=== PATIENT | female | born 1940 | race Caucasian/White ===

== ENCOUNTER → 2016-08-08 | Outpatient (CLI) | payer MEDICARE ==
--- NOTE | 2016-08-08 09:37 | MR ---
EXAMINATION TYPE: MR brain wo/w con DATE OF EXAM: 08/08/2016 9:25 AM COMPARISON: NONE HISTORY: Episodes of Severe Dizziness, Unsteady, HX of Ovarian CA 2007 CONTRAST: Performed utilizing 16 mL intravenous MultiHance gadolinium contrast. TECHNIQUE: Multiplanar, multiecho imaging on a 3.0 Malaika magnet is performed through the brain. Stud y is performed within 24 hours of arrival to the hospital. The craniovertebral junction is normal. The pituitary is normal. Diffusion-weighted imaging is performed. No abnormal hyperintensity is present to suggest an acute i ntracranial infarct or acute ischemic change. There are patchy periventricular white matter hyperintensities on inversion recovery weighted sequenc es compatible with microvascular ischemic changes. Ventricles and sulci are slightly prominent for the patient age. No suspicious enhancement is evident. IMPRESSIONS: 1. Atrophy with periventricular white matter ischemic type changes.
== END | disposition home or self-care (01) ==
LOC: RADMRIMAIN 08:37
PROVIDERS: ATTEND Internal Medicine
DX: G31.9 Degenerative disease of nervous system, unspecified (principal); R90.82 White matter disease, unspecified
CPT/HCPCS: 70553; A9577

== ENCOUNTER → 2016-08-13 | Outpatient (CLI) | payer MEDICARE ==
--- NOTE | 2016-08-14 10:03 | MM ---
Reason for exam: screening (asymptomatic). Last mammogram was performed 1 year ago. History: Patient is postmenopausal and has history of ovarian cancer at age 67. Family history of breast cancer in paternal aunt at age 50, breast cancer in maternal cousin, and breast cancer in maternal aunt at age 50. Excisional biopsy of the left breast, 1969. Took estrogen for 20 years beginning at age 45. Physical Findings: A clinical breast exam by your physician is recommended on an annual basis and results should be correlated with mammographic findings. MG 3D Screening Mammo W/Cad Bilateral CC and MLO view(s) were taken. Prior study comparison: August 12, 2015, bilateral MG 3d screening mammo w/cad. August 10, 2014, bilateral MG screening mammo w CAD. There are scattered fibroglandular densities. Finding: There are typically benign vascular calcifications in the right breast. There is a chronic nodularity in the right breast. There is no discrete abnormality. ASSESSMENT: Benign, BI-RAD 2 RECOMMENDATION: Routine screening mammogram of both breasts in 1 year.
== END | disposition home or self-care (01) ==
LOC: RADMAMWWP 09:46
PROVIDERS: ATTEND Internal Medicine
DX: Z12.31 Encounter for screening mammogram for malignant neoplasm of breast (principal)
CPT/HCPCS: 77063; G0202

== ENCOUNTER → 2016-09-02 | Outpatient (CLI) | payer MEDICARE | END | disposition home or self-care (01) | LOC: RADECHMAIN 11:56 | PROVIDERS: ATTEND Internal Medicine | DX: R55 Syncope and collapse (principal) | CPT/HCPCS: 93270; 93271 ==

== ENCOUNTER → 2016-09-22 | Outpatient (CLI) | payer MEDICARE ==
[2016-09-22 12:17] LABS: Blood Urea Nitrogen 19 mg/dL (7-17); Non-African American GFR(MDRD) 54 (>60 ml/min/1.73 sqM)
[2016-09-22 12:49] LABS: Cancer Anitgen 125 10.4 U/mL (<35.1)
== END | disposition home or self-care (01) ==
LOC: LABWHC1 11:26
PROVIDERS: ATTEND Internal Medicine Hematology & Oncology
DX: C56.9 Malignant neoplasm of unspecified ovary (principal)
CPT/HCPCS: 36415; 82565; 84520; 86304

== ENCOUNTER → 2016-09-28 | Outpatient (CLI) | payer MEDICARE ==
--- NOTE | 2016-09-28 10:25 | CT ---
EXAMINATION TYPE: CT ChestAbdPelvis w con DATE OF EXAM: 09/28/2016 9:19 AM COMPARISON: Previous study dated 04/06/2016. HISTORY: Patient complains of LLQ pain at time of study. Follow up study for known ovarian CA. CT DLP: 1293.9 mGycm Automated exposure control for dose reduction was used. TECHNIQUE: Helical acquisition through the abdomen and pelvis was obtained without oral contrast but following the intravenous administration of 80 mL of Visipaque 320. The data was formatted in the ax ial, coronal and sagittal projections. FINDINGS: There is apical scarring worse on the right than the left. The lungs are otherwise clear. There is no significant axillary, internal mammary, mediastinal or hilar adenopathy. There is no pleu ral or pericardial fluid. The heart is not enlarged. Within the abdomen, the liver is enlarged measuring 21 cm. Is fatty infiltrated. It has the spleen an d gallbladder are normal. Both adrenal glands are normal. There are simple appearing cyst in the upper pole of the right kidney measuring 3.6 cm. This was pres ent previously. The left kidney is normal. The pancreas is unremarkable. There is mild atheromatous calcification of the visualized arterial tree. There is no significant retroperitoneal, iliac or inguinal adenopathy. The uterus and ovaries are not visualized. The bladder is normal. Both large and small bowel are normal. The appendix is normal. There is no free fluid and no free air. There is degenerative disc disease at L5-S1. There is hypertrophic spondylosis in the lower dorsal sp ine. There is no bony destructive lesion. IMPRESSION: 1. NO EVIDENCE OF METASTATIC DISEASE AT THIS TIME. 2. HEPATOMEGALY AND FATTY INFILTRATION OF THE LIVER. 3. STABLE, SIMPLE APPEARING CYSTIC DISEASE OF THE RIGHT KIDNEY. 4. MILD DEGENERATIVE CHANGES WITHIN THE SPINE.
== END ==
LOC: RADCTMAIN 08:21
PROVIDERS: ATTEND Internal Medicine Hematology & Oncology
DX: Z03.89 Encounter for observation for other suspected diseases and conditions ruled out (principal); C56.9 Malignant neoplasm of unspecified ovary; K76.0 Fatty (change of) liver, not elsewhere classified; R16.0 Hepatomegaly, not elsewhere classified; Q61.9 Cystic kidney disease, unspecified; M47.9 Spondylosis, unspecified
CPT/HCPCS: 71260; 74177; Q9967

== ENCOUNTER → 2017-03-25 | Outpatient (CLI) | payer MEDICARE ==
[2017-03-25 11:22] LABS: AST 32 U/L (14-36); Alkaline Phosphatase 147 U/L (38-126); Anion Gap 10 mmol/L; Blood Urea Nitrogen 12 mg/dL (7-17); Calcium 9.9 mg/dL (8.4-10.2); Carbon Dioxide 25 mmol/L (22-30); Chloride 107 mmol/L (98-107); Cholesterol 138 mg/dL (<200); Glucose 93 mg/dL (74-99); HDL Cholesterol 52 mg/dL (40-60); Non-African American GFR(MDRD) 53 (>60 ml/min/1.73 sqM); Potassium 4.4 mmol/L (3.5-5.1); Sodium 142 mmol/L (137-145); Total Bilirubin 0.6 mg/dL (0.2-1.3); Total Protein 7.3 g/dL (6.3-8.2)
[2017-03-25 11:27] LABS: ALT 43 U/L (9-52)
== END | disposition home or self-care (01) ==
LOC: LABWHC1 10:44
PROVIDERS: ATTEND Internal Medicine Hematology & Oncology
DX: C56.9 Malignant neoplasm of unspecified ovary (principal)
CPT/HCPCS: 36415; 80053; 80061; 86304

== ENCOUNTER → 2017-03-30 | Outpatient (CLI) | payer MEDICARE ==
--- NOTE | 2017-03-30 13:09 | CT ---
EXAMINATION TYPE: CT ChestAbdPelvis w con DATE OF EXAM: 03/30/2017 COMPARISON: CT chest abdomen and pelvis September 28, 2016 and older studies. HISTORY: Follow up on ovarian cancer currently after remission after treatment 2007. CT DLP: 1887 mGycm. Automated Exposure Control for Dose Reduction was Utilized. CONTRAST: CT scan of the thorax, abdomen and pelvis is performed with oral and with IV Contrast, patient inject ed with 80 mL of Visipaque 320. FINDINGS: LUNGS: Mild to moderate biapical scarring is redemonstrated. Dependent atelectasis in both lower lobe s is present. There is no suspicious nodule or mass seen bilaterally. No pleural effusion or pneumoth orax is present. Tracheobronchial tree is patent. MEDIASTINUM: There are no greater than 1 cm hilar or mediastinal lymph nodes. No cardiomegaly or pe ricardial effusion is seen. Coronary artery calcification is redemonstrated which is noted marker fo r coronary artery disease. OTHER: No additional significant abnormality is seen. LIVER/GB: The liver remains diffusely low dense consistent with fatty infiltration. PANCREAS: No significant abnormality is seen. SPLEEN: No significant abnormality is seen. ADRENALS: No significant abnormality is seen. KIDNEYS: There is simple appearing 3.5 cm cyst posteriorly upper pole level right kidney. Smaller sim ple appearing cyst anterior to this is noted on series 7 axial image 18. BOWEL: Oral contrast reaches level of the left colon. There is no suspicious small or large bowel dil atation. Normal-appearing appendix is seen from cecum in the right lower quadrant. GENITAL ORGANS: Uterus is surgically absent. No suspicious adnexal masses are seen. Left-sided pelvic phlebolith is redemonstrated. LYMPH NODES: No greater than 1cm abdominal or pelvic lymph nodes are appreciated. OSSEOUS STRUCTURES: There is moderate disc space narrowing and vacuum disc phenomenon at lumbosacral junction. There is fairly moderate symmetric joint space loss in both hips. There is facet arthropath y in the lower lumbar spine. OTHER: There is mild to moderate calcified plaque in the abdominal aorta extending into pelvic branch vessels. IMPRESSION: No suspicious new mass or adenopathy is seen to suggest neoplastic recurrence.
== END | disposition home or self-care (01) ==
LOC: RADCTMAIN 12:13
PROVIDERS: ATTEND Internal Medicine Hematology & Oncology
DX: C56.9 Malignant neoplasm of unspecified ovary (principal); Z91.041 Radiographic dye allergy status
CPT/HCPCS: 71260; 74177; Q9967

== ENCOUNTER → 2017-07-05 | Outpatient (CLI) | payer MEDICARE ==
[2017-07-05 13:56] LABS: Blood Urea Nitrogen 19 mg/dL (7-17)
== END ==
LOC: LABWHC1 12:14
PROVIDERS: ATTEND Internal Medicine Hematology & Oncology
DX: C56.9 Malignant neoplasm of unspecified ovary (principal)
CPT/HCPCS: 36415; 82565; 84520

== ENCOUNTER → 2017-07-08 | Outpatient (CLI) | payer MEDICARE ==
--- NOTE | 2017-07-08 17:00 | CT ---
EXAMINATION TYPE: CT ChestAbdPelvis w con DATE OF EXAM: 07/08/2017 COMPARISON: March 30, 2017 HISTORY: Ovarian cancer, elevated C 125 CT DLP: 1250.70 mGycm CONTRAST: CT scan of the chest, abdomen and pelvis is performed with Oral Contrast and with IV Contrast, patien t injected with 80 mL of Visipaque 320. CT Chest: LUNGS: The lungs are clear and free of infiltrate or atelectasis. No pulmonary nodule or mass is det ected. No pleural effusion or CT evidence of interstitial lung disease. MEDIASTINUM: Thoracic aorta is of normal caliber. The heart is not enlarged. No evidence for media stinal mass or adenopathy. HILAR STRUCTURES: No evidence for mass. No hilar adenopathy is appreciated. OTHER: No significant abnormality. CONTRAST CT ABDOMEN AND PELVIS FINDINGS: LIVER/GB: Diffuse hepatic steatosis noted. No calcified gallstones. No space occupying hepatic les ion. Biliary tree is of normal caliber. PANCREAS: No inflammation. No distinct mass. SPLEEN: No splenic enlargement. No lesion seen. ADRENALS: No nodule. No thickening. KIDNEYS/BLADDER: No hydronephrosis. No nephrolithiasis. Stable right renal cyst.. BOWEL: Normal appendix. Normal bowel caliber. No inflammation. GENITAL ORGANS: Hysterectomy and bilateral oophorectomy change. LYMPH NODES: No greater than 1cm abdominal or pelvic lymph nodes are appreciated. AORTA: No significant abnormality. OSSEOUS STRUCTURES: No significant abnormality is seen. OTHER: No significant additional abnormality is seen. IMPRESSION: 1. No evidence for metastatic disease or disease recurrence.
== END | disposition home or self-care (01) ==
LOC: RADCTMAIN 16:02
PROVIDERS: ATTEND Internal Medicine Hematology & Oncology
DX: C56.9 Malignant neoplasm of unspecified ovary (principal)
CPT/HCPCS: 71260; 74177; Q9967

== ENCOUNTER → 2017-07-31 | Outpatient (CLI) | payer MEDICARE ==
--- NOTE | 2017-08-03 15:05 | PE ---
EXAMINATION TYPE: PET CT fusion skull to thigh DATE OF EXAM: 07/31/2017 COMPARISON: Chest abdomen pelvis 07/08/2017 Prior PET/CT: 02/02/2015 HISTORY: Ovarian cancer TECHNIQUE: Following the intravenous administration of 11.50 mCi of F-18 FDG, whole body images are performed from the skull base to the midthigh. Images are reviewed on the computer in the coronal, a xial, and sagittal planes. Reconstructed rotating images are created on independent workstation and reviewed on the computer. A localization and attenuation correction CT is performed in conjunction with the PET scan. DLP: 453.03 mGycm SCAN: Subsequent Scan Blood glucose: 93 mg/dL Average Mediastinum SUV: 1.76 Average Liver SUV: 2.58 FINDINGS: NECK: No abnormal uptake THORAX: No abnormal uptake. ABDOMEN: Right anterior abdomen at the level of the pelvic inlet there is associated with a loop of b owel radiotracer accumulation with an SUV of 3.2. This could be related to bowel activity. This is fo dk and neoplasm is not excluded. There is a periaortic lymph node at the aortic bifurcation within i ncreased SUV. This measures 0.8 cm in size, which is enlarged from comparison PET/CT. PELVIS: Focal area of marked hyperintensity adjacent to a diverticulum in the rectum. This is associa jamila with a nodule and has an SUV of 14.01 suggestive for metastatic lesion. This has less intensity t sal the 30 SUV of 02/02/2015. Findings are suspicious for recurrent neoplasm at this level. There coul d be a lymph node in the obturator canal. However, there is sequential imaging of the left ureter sug gesting this could more likely be ureter as well. OSSEOUS STRUCTURES: No abnormal uptake LOCALIZATION CT: There are scattered diverticuli within the sigmoid colon. The lymph node at the aort ic bifurcation measures 0.8 cm. There is increased density in the obturator canal region. Underlying small lymph nodes may be present. The suspected node on the left could also be related to ureter at t he time of this examination. COMPARISON: Uptake within the mid pelvis has diminished in signal. The lymph node at the aortic bifur cation is increased in size and radiotracer accumulation suspicious for metastatic lesion within SUV value of 5.7. There may be some increasing radiotracer accumulation superior to the right femoral nec k of uncertain etiology. Communication: Preliminary results were discussed with Dr. Denis by telephone to 11/14/2016. Patient h as undergone surgery suggesting the uptake within the pelvis and aortic bifurcation lymph node more l ikely new metastatic disease as opposed to recurrence. IMPRESSION: 1. Increased radiotracer accumulation within the mid pelvis has diminished in SUV over the interval b ut remains suspicious for a recurrent neoplasm. 2. New enlarging aortic bifurcation lymph node which remains small by measurement criteria but has an elevated SUV suspicious for new metastatic lesion.
== END | disposition home or self-care (01) ==
LOC: RADPETMAIN 07:35
PROVIDERS: ATTEND Internal Medicine Hematology & Oncology
DX: C56.1 Malignant neoplasm of right ovary (principal); R59.0 Localized enlarged lymph nodes
CPT/HCPCS: 78815; A9552

== ENCOUNTER → 2017-08-16 | Outpatient (CLI) | payer MEDICARE ==
--- NOTE | 2017-08-18 07:29 | MM ---
Reason for exam: screening (asymptomatic). Last mammogram was performed 1 year ago. History: Patient is postmenopausal and has history of ovarian cancer at age 67. Family history of breast cancer in paternal aunt at age 50, breast cancer in maternal cousin, and breast cancer in maternal aunt at age 50. Excisional biopsy of the left breast, 1969. Took estrogen for 20 years beginning at age 45. Physical Findings: A clinical breast exam by your physician is recommended on an annual basis and results should be correlated with mammographic findings. MG 3D Screening Mammo W/Cad Bilateral CC and MLO view(s) were taken. Prior study comparison: August 13, 2016, bilateral MG 3d screening mammo w/cad. August 12, 2015, bilateral MG 3d screening mammo w/cad. Stable focal asymmetry right upper outer quadrant likely intramammary lymph node. No significant changes when compared with prior studies. ASSESSMENT: Negative, BI-RAD 1 RECOMMENDATION: Routine screening mammogram of both breasts in 1 year.
== END | disposition home or self-care (01) ==
LOC: RADMAMWWP 09:21
PROVIDERS: ATTEND Internal Medicine Hematology & Oncology
DX: Z12.31 Encounter for screening mammogram for malignant neoplasm of breast (principal)
CPT/HCPCS: 77063; 77067

== ENCOUNTER 2017-08-27 10:22 | Day surgery (SDC) | payer MEDICARE ==
[2017-08-25 11:56] VITALS: BMI 31.4
--- NOTE | 2017-08-27 07:16 | P.GSHP ---
History of Present Illness H&P Date: 08/27/17 Chief Complaint: Ovarian cancer Patient here today for Port-A-Cath placement. Patient has had 4-5 recurrences of her malignancy over the years. She has never required a Port-A-Cath to be placed before however has very poor IV access at this point. Arriving today for Port-A-Cath placement. Past Medical History Past Medical History: Cancer, COPD, CVA/TIA, Hyperlipidemia, Osteoarthritis (OA) Additional Past Medical History / Comment(s): 2008 OVARIAN CANCER WITH SURGERY X2 AND CHEMO (LAST CHEMO 07/2015), TIA x 2, HX OF MIGRAINES, DIVERTICULOSIS migraines in past, UTI., STATES SORE LEFT LOWER EYE LID AND SURGERY SCHEDULED FOR 09/02/17., PT STATES UNSURE OF COPD., ITCHY SKIN, STATES VERY SENSITIVE TO MEDICATIONS AND ANESTHESIA. History of Any Multi-Drug Resistant Organisms: None Reported Past Surgical History: Bladder Surgery, Hysterectomy Additional Past Surgical History / Comment(s): 2007 cancerous ovarian mass removed, 01/2015 pelvic surgery for more cancer removal, colonoscopy, bladder suspension, hemorrhoidectomy, nose repair, ovarian cystectomy. Past Anesthesia/Blood Transfusion Reactions: Previous Problems w/ Anesthesia, Postoperative Nausea & Vomiting (PONV) Additional Past Anesthesia/Blood Transfusion Reaction / Comment(s): STATES DIFFICULTY WAKING UP- RECEIVED NARCAN , RECORDS REQUESTED FROM [facility] . (02/2015) Past Psychological History: Anxiety, Depression Additional Psychological History / Comment(s): . Smoking Status: Former smoker Past Alcohol Use History: Rare Additional Past Alcohol Use History / Comment(s): Pt started smoking in 1957 and quit in 2007. SMOKED 1 PPD, SMOKED APPROX 50 YRS. Past Drug Use History: None Reported - Past Family History Father Family Medical History: Cancer Additional Family Medical History / Comment(s): Father had lymphoma. Mother Family Medical History: Cancer Additional Family Medical History / Comment(s): Mother had nasal cancer., SKIN CANCER Medications and Allergies Home Medications Medication Instructions Recorded Confirmed Type FLUoxetine HCL [PROzac] 20 mg PO DAILY 01/20/14 08/25/17 History Aspirin [Adult Low Dose Aspirin EC] 81 mg PO DAILY 08/25/17 08/25/17 History Atorvastatin [Lipitor] 10 mg PO HS 08/25/17 08/25/17 History Ibuprofen [Motrin Ib] 200 mg PO HS PRN 08/25/17 08/25/17 History clonazePAM [KlonoPIN] 0.5 mg PO BID PRN 08/25/17 08/25/17 History Allergies Allergy/AdvReac Type Severity Reaction Status Date / Time codeine Allergy Severe SEVERE Verified 08/25/17 10:59 HEADACHE Sulfa (Sulfonamide Allergy Severe SEVERE Verified 08/25/17 10:59 Antibiotics) HEADACHE carboplatin AdvReac Severe HEART Verified 08/25/17 11:44 PROBLEMS, BLACKED OUT. lorazepam [From Ativan] AdvReac Unknown VERY Verified 08/25/17 10:55 DROWSY - SLEPT 12 HOURS ondansetron AdvReac Unknown SWELLING Verified 08/25/17 10:56 [From Zofran (as OF TONGUE, hydrochloride)] UNABLE TO TALK prochlorperazine AdvReac Unknown CONFUSED- Verified 08/25/17 10:55 [From Compazine] FELT DRUGGED UP. Iodinated Contrast- Oral and AdvReac Confusion Verified 03/17/16 09:28 IV Dye [Iodinated Contrast Media - IV Dye] Surgical - Exam Deferred until arrival Assessment and Plan (1) Ovarian cancer Narrative/Plan: Will proceed with Port-A-Cath placement today. Status: Acute Code(s): C56.9 - MALIGNANT NEOPLASM OF UNSPECIFIED OVARY SNOMED Code(s): 740264983
[~2017-08-27 10:22] MED LIST: DEXAMETHASONE SOD PHOSPHATE 10 MG/ML 1 ML VIAL IV ONE; HEPARIN SODIUM,PORCINE 5,000 UNIT/ML 1 ML VIAL SQ ONE; LACTATED RINGERS 1,000 ML IV SCH; LIDOCAINE 1% 20 ML VIAL (10MG/ML) FOR IV START INTRADERMA PRN; Pre Op ABX Message 1 EACH MISC MISCELLANE ONE
--- NOTE | 2017-08-27 11:22 | P.HPADDEND ---
H&P Addendum H&P Addendum Date: 08/27/17 Physical exam: General: Well-developed, well-nourished HEENT: Normocephalic, sclerae nonicteric Abdomen: Nontender, nondistended Extremities: No edema Neuro: Alert and oriented
[2017-08-27 11:31] VITALS: TEMP 98
[2017-08-27] MEDS ORDERED: GLYCOPYRROLATE 0.2 MG/ML 2 ML VIAL ONE (11:48)
[2017-08-27] MEDS ORDERED: LIDOCAINE 1% INJ 10MG/ML (20 ML MDV) ONE (11:48)
[2017-08-27] MEDS ORDERED: KETAMINE 10 MG/ML 20 ML VIAL ONE (11:48)
[2017-08-27] MEDS ORDERED: PROPOFOL 10 MG/ML 20 ML VIAL IV ONE (11:48)
[2017-08-27] MEDS ORDERED: LIDOCAINE 1% INJ 10MG/ML (10 ML MDV) SQ ONE (11:48)
[2017-08-27] MEDS ORDERED: fentaNYL (PF) 50 MCG/ML 2 ML AMP ONE (11:48)
[2017-08-27] MEDS ORDERED: SODIUM CHLORIDE 0.9% 50 ML with ceFAZolin 2,000 MG IV ONE ×2 (12:01)
[2017-08-27 12:32] VITALS: RESP 18
[2017-08-27] MEDS ORDERED: HYDROcodone/APAP 5-325MG 1 EACH TAB PO PRN (12:40)
[2017-08-27] MEDS ORDERED: NALOXONE 0.4 MG/ML 1 ML VIAL IV PRN (12:40)
--- NOTE | 2017-08-27 12:43 | P.OP ---
Date of Procedure: 08/27/17 Procedure(s) Performed: PREOPERATIVE DIAGNOSIS: Ovarian cancer POSTOPERATIVE DIAGNOSIS: Same PROCEDURE: Port-A-Cath placement SURGEON: Michelle EBL: Minimal ANESTHESIA: Sedation COMPLICATIONS: None OPERATIVE PROCEDURE: Patient was brought and placed on the operative table in the supine position. The patient was sedated per anesthesia that time. The chest and neck were prepped and draped in usual sterile fashion. The ultrasound probe was used to identify the location of the right internal jugular vein. The skin was localized with lidocaine. The Seldinger needle was advanced into the IJ under ultrasound guidance. The wire was advanced through the needle under fluoroscopic guidance into the superior vena cava. A port pocket was created in the right infraclavicular location. The catheter was tunneled from the wire entrance site to the port pocket. The port was then connected to the catheter. The dilator introducer was threaded over the guidewire. The guidewire and dilator were then removed. The catheter was advanced through the introducer and introducer was then removed. The tip was seen to be in the right atrial junction. Port was flushed with both saline and a Hep-Lock solution. There was good flow both in and out of the port. The port was sutured in underlying tissues using 3-0 silk sutures. The subcutaneous tissues were reapproximated using 3-0 Vicryl sutures and the skin at both locations using 4-0 Monocryl sutures. Steri-Strips and sterile dressings then applied. DISPOSITION: Stable to recovery room
--- NOTE | 2017-08-27 13:12 | XR ---
EXAMINATION TYPE: XR chest 1V confirm line [facility] DATE OF EXAM: 08/27/2017 COMPARISON: Chest x-ray January 20, 2014. CT chest abdomen and pelvis July 08, 2017. HISTORY: New Mediport placement TECHNIQUE: Single AP portable frontal upright view of the chest is obtained. FINDINGS: There is new right internal jugular Mediport catheter with tip in SVC. No sizable pneumotho rax is evident. There is chronic parenchymal change without suspicious focal air space opacity or ple ural effusion seen. The cardiac silhouette size is stable and within normal limits. The osseous st ructures are intact. IMPRESSION: New right internal jugular Mediport catheter with tip in SVC. No sizable pneumothorax no jamila.
[2017-08-27 13:43] VITALS: BP 134/78; PULSE 78
--- NOTE | 2017-08-27 14:42 | FL ---
EXAMINATION TYPE: FL guided central line placemt DATE OF EXAM: 08/27/2017 CLINICAL HISTORY: Cysts Port-A-Cath line placement. TECHNIQUE: Fluoroscopy. COMPARISON: None. FINDINGS: Fluoroscopic guidance was provided during Port-A-Cath insertion procedure performed by Dr. Martinez. A total of 6 seconds of fluoroscopic time was utilized during the procedure and 1 spot intra operative image is acquired. Single image acquired shows partial visualization of right internal jugu lar Mediport catheter. IMPRESSION: As Above.
== END 2017-08-27 13:46 | disposition home or self-care (01) ==
LOC: OR 10:22
PROVIDERS: ATTEND Surgery
DX: C56.9 Malignant neoplasm of unspecified ovary (principal); J44.9 Chronic obstructive pulmonary disease, unspecified; F41.9 Anxiety disorder, unspecified; F32.9 Major depressive disorder, single episode, unspecified; E78.5 Hyperlipidemia, unspecified; M19.90 Unspecified osteoarthritis, unspecified site; K21.9 Gastro-esophageal reflux disease without esophagitis; Z86.73 Personal history of transient ischemic attack (TIA), and cerebral infarction without residual deficits; Z90.710 Acquired absence of both cervix and uterus; Z87.891 Personal history of nicotine dependence; Z88.8 Allergy status to other drugs, medicaments and biological substances; Z88.5 Allergy status to narcotic agent; Z88.2 Allergy status to sulfonamides; Z91.041 Radiographic dye allergy status; G43.909 Migraine, unspecified, not intractable, without status migrainosus; Z79.899 Other long term (current) drug therapy; Z79.82 Long term (current) use of aspirin; Z85.43 Personal history of malignant neoplasm of ovary; Z92.21 Personal history of antineoplastic chemotherapy
CPT/HCPCS: 36561; 77001; C1788; J1644; J2001 ×2; J3010; J1642; J0690; J2704

== ENCOUNTER → 2017-09-24 | Outpatient (CLI) | payer MEDICARE ==
--- NOTE | 2017-09-24 12:52 | US ---
EXAMINATION TYPE: US venous doppler duplex UE RT DATE OF EXAM: 09/24/2017 COMPARISON: NONE CLINICAL HISTORY: Rt Upper Ext, Swelling R22.31. Pt states right arm pain, currently has chemo port i n place 3 weeks SIDE PERFORMED: Right Grayscale, color doppler, spectral doppler imaging performed of the deep veins of the right upper ext remity. There is normal flow, compressability and vascular waveforms. IMPRESSION: Right Arm: Negative for DVT
--- NOTE | 2017-09-24 13:06 | XR ---
EXAMINATION TYPE: XR chest 2V DATE OF EXAM: 09/24/2017 COMPARISON: Chest x-ray August 27, 2017 and PET/CT July 31, 2017. HISTORY: History of ovarian cancer. TECHNIQUE: Frontal and lateral views of the chest are obtained. FINDINGS: There is stable right internal jugular Mediport catheter There is chronic parenchymal morales e without suspicious focal air space opacity, pleural effusion, or pneumothorax seen. The cardiac si lhouette size is stable and upper limits of normal with atherosclerotic thoracic aorta. The osseous structures are intact. IMPRESSION: No acute cardiopulmonary process. No significant change from prior.
== END | disposition home or self-care (01) ==
LOC: RADUSWWP 12:01
PROVIDERS: ATTEND Internal Medicine Hematology & Oncology
DX: C56.9 Malignant neoplasm of unspecified ovary (principal); E78.5 Hyperlipidemia, unspecified; F41.9 Anxiety disorder, unspecified; R22.31 Localized swelling, mass and lump, right upper limb; Z91.041 Radiographic dye allergy status; Z88.2 Allergy status to sulfonamides; Z88.5 Allergy status to narcotic agent; Z88.8 Allergy status to other drugs, medicaments and biological substances; Z71.3 Dietary counseling and surveillance
CPT/HCPCS: 71046

== ENCOUNTER 2017-10-18 14:53 | Emergency (ER) | payer MEDICARE ==
[2017-10-18 15:00] VITALS: TEMP 97.5
[2017-10-18] MEDS ORDERED: methylPREDNISolone SOD SUCCI 125 MG/2 ML VIAL IV STA (15:27)
[2017-10-18] MEDS ORDERED: diphenhydrAMINE 50 MG/ML 1 ML VIAL IVP STA (15:27)
[2017-10-18] MEDS ORDERED: FAMOTIDINE 20 MG/2 ML VIAL IV STA (15:27)
--- NOTE | 2017-10-18 15:30 | ED ---
General Adult HPI - General Chief complaint: Recheck/Abnormal Lab/Rx Stated complaint: Needs Chest CT/sent by Dr Denis Time Seen by Provider: 10/18/17 15:21 Source: patient, RN notes reviewed Mode of arrival: ambulatory Limitations: no limitations - History of Present Illness Initial comments: Patient is a pleasant 77-year-old female presenting to the emergency department needing medication for computed tomography scan. Patient did have outpatient orders for computed tomography scan of the chest. Patient states she did have mild itching with previous iodine and patient was sent to emergency department for premedication. Patient admits to being fatigued and short of breath on exertion over the past several days. Patient also has some minimal chest tightness. No significant cough or fever. Patient is on chemotherapy. Last chemotherapy was approximately one week ago. 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 Patient states symptoms are minimal at rest. - Related Data Home Medications Medication Instructions Recorded Confirmed Atorvastatin [Lipitor] 10 mg PO HS 08/25/17 10/18/17 Ibuprofen [Motrin Ib] 200 mg PO HS 08/25/17 10/18/17 Acetaminophen Tab [Tylenol Tab] 250 mg PO HS PRN 10/18/17 10/18/17 FLUoxetine HCL [PROzac] 10 mg PO DAILY 10/18/17 10/18/17 Loratadine [Claritin] 10 mg PO HS 10/18/17 10/18/17 Allergies Allergy/AdvReac Type Severity Reaction Status Date / Time codeine Allergy Severe SEVERE Verified 10/18/17 16:30 HEADACHE Sulfa (Sulfonamide Allergy Severe SEVERE Verified 10/18/17 16:30 Antibiotics) HEADACHE carboplatin AdvReac Severe HEART Verified 10/18/17 16:30 PROBLEMS, BLACKED OUT. lorazepam [From Ativan] AdvReac Unknown VERY Verified 10/18/17 16:30 DROWSY - SLEPT 12 HOURS ondansetron AdvReac Unknown SWELLING Verified 10/18/17 16:30 [From Zofran (as OF TONGUE, hydrochloride)] UNABLE TO TALK prochlorperazine AdvReac Unknown CONFUSED- Verified 10/18/17 16:30 [From Compazine] FELT DRUGGED UP. Iodinated Contrast- Oral and AdvReac Confusion Verified 10/18/17 16:30 IV Dye [Iodinated Contrast Media - IV Dye] Review of Systems ROS Statement: Those systems with pertinent positive or pertinent negative responses have been documented in the HPI. ROS Other: All systems not noted in ROS Statement are negative. Constitutional: Denies: fever Eyes: Denies: eye pain ENT: Denies: ear pain Respiratory: Reports: dyspnea Cardiovascular: Denies: edema Endocrine: Reports: fatigue Gastrointestinal: Denies: abdominal pain Genitourinary: Denies: dysuria Musculoskeletal: Denies: back pain Skin: Denies: rash Neurological: Denies: weakness Past Medical History Past Medical History: Cancer, COPD, CVA/TIA, Hyperlipidemia, Osteoarthritis (OA) Additional Past Medical History / Comment(s): 2007 OVARIAN CANCER WITH SURGERY X2 AND CHEMO (LAST CHEMO 07/2015), TIA x 2, HX OF MIGRAINES, DIVERTICULOSIS migraines in past, UTI., STATES SORE LEFT LOWER EYE LID AND SURGERY SCHEDULED FOR 09/02/17., PT STATES UNSURE OF COPD., ITCHY SKIN, STATES VERY SENSITIVE TO MEDICATIONS AND ANESTHESIA. History of Any Multi-Drug Resistant Organisms: None Reported Past Surgical History: Bladder Surgery, Hysterectomy Additional Past Surgical History / Comment(s): 2007 cancerous ovarian mass removed, 01/2015 pelvic surgery for more cancer removal, colonoscopy, bladder suspension, hemorrhoidectomy, nose repair, ovarian cystectomy. Past Anesthesia/Blood Transfusion Reactions: Previous Problems w/ Anesthesia, Postoperative Nausea & Vomiting (PONV) Additional Past Anesthesia/Blood Transfusion Reaction / Comment(s): STATES DIFFICULTY WAKING UP- RECEIVED NARCAN , RECORDS REQUESTED FROM [facility] . (02/2015) Past Psychological History: Anxiety, Depression Smoking Status: Former smoker Past Alcohol Use History: Rare Past Drug Use History: None Reported - Past Family History Father Family Medical History: Cancer Additional Family Medical History / Comment(s): Father had lymphoma. Mother Family Medical History: Cancer Additional Family Medical History / Comment(s): Mother had nasal cancer., SKIN CANCER General Exam Limitations: no limitations General appearance: alert, in no apparent distress Head exam: Present: atraumatic Eye exam: Present: normal appearance Neck exam: Present: normal inspection Respiratory exam: Present: normal lung sounds bilaterally. Absent: respiratory distress Cardiovascular Exam: Present: regular rate, normal rhythm Expanded Peripheral pulses: 2+: Radial (R), Radial (L), Posterior Tibialis (R), Posterior Tibialis (L) GI/Abdominal exam: Present: soft. Absent: tenderness Extremities exam: Present: normal inspection Neurological exam: Present: alert Psychiatric exam: Present: normal affect, normal mood Skin exam: Present: normal color Course Vital Signs 10/18/17 10/18/17 14:57 16:24 Temperature 97.5 F L Pulse Rate 89 Respiratory 18 16 Rate Blood Pressure 128/79 O2 Sat by Pulse 98 Oximetry EKG Findings - EKG Comments: EKG Findings:: Normal sinus rhythm 85. LA 152. QRS 70. QT 386. QTc 459. Normal axis. Normal QRS. Nonspecific T waves. Medical Decision Making - Medical Decision Making Patient reevaluated and resting comfortably in bed. Patient and family updated on results. Patient is comfortable with discharge home. Case was discussed in detail with Dr. Robbins, covering for Dr. Denis. He is comfortable with discharge of patient. Patient states she does have an appointment Wednesday with Dr. Denis. - Lab Data Result diagrams: 10/18/17 15:53 10/18/17 15:53 Lab Results 10/18/17 10/18/17 10/18/17 Range/Units 15:27 15:53 15:53 WBC 2.8 L (3.8-10.6) k/uL RBC 4.05 (3.80-5.40) m/uL Hgb 12.8 (11.4-16.0) gm/dL Hct 37.2 (34.0-46.0) % MCV 91.9 (80.0-100.0) fL MCH 31.5 (25.0-35.0) pg MCHC 34.3 (31.0-37.0) g/dL RDW 13.2 (11.5-15.5) % Plt Count 172 (150-450) k/uL Neutrophils % 43 % Lymphocytes % 49 % Monocytes % 2 % Eosinophils % 4 % Basophils % 0 % Neutrophils # 1.2 L (1.3-7.7) k/uL Lymphocytes # 1.4 (1.0-4.8) k/uL Monocytes # 0.0 (0-1.0) k/uL Eosinophils # 0.1 (0-0.7) k/uL Basophils # 0.0 (0-0.2) k/uL Sodium (137-145) mmol/L Potassium (3.5-5.1) mmol/L Chloride (98-107) mmol/L Carbon Dioxide (22-30) mmol/L Anion Gap mmol/L BUN (7-17) mg/dL Creatinine (0.52-1.04) mg/dL Est GFR (CKD-EPI)AfAm (>60 ml/min/1.73 sqM) Est GFR (CKD-EPI)NonAf (>60 ml/min/1.73 sqM) Glucose (74-99) mg/dL Calcium (8.4-10.2) mg/dL Magnesium (1.6-2.3) mg/dL Total Bilirubin (0.2-1.3) mg/dL AST (14-36) U/L ALT (9-52) U/L Alkaline Phosphatase (38-126) U/L Total Creatine Kinase 76 (30-135) U/L CK-MB (CK-2) 1.1 (0.0-2.4) ng/mL CK-MB (CK-2) Rel Index 1.4 Troponin I 0.012 (0.000-0.034) ng/mL NT-Pro-B Natriuret Pep 131 pg/mL Total Protein (6.3-8.2) g/dL Albumin (3.5-5.0) g/dL 10/18/17 Range/Units 15:53 WBC (3.8-10.6) k/uL RBC (3.80-5.40) m/uL Hgb (11.4-16.0) gm/dL Hct (34.0-46.0) % MCV (80.0-100.0) fL MCH (25.0-35.0) pg MCHC (31.0-37.0) g/dL RDW (11.5-15.5) % Plt Count (150-450) k/uL Neutrophils % % Lymphocytes % % Monocytes % % Eosinophils % % Basophils % % Neutrophils # (1.3-7.7) k/uL Lymphocytes # (1.0-4.8) k/uL Monocytes # (0-1.0) k/uL Eosinophils # (0-0.7) k/uL Basophils # (0-0.2) k/uL Sodium 139 (137-145) mmol/L Potassium 4.4 (3.5-5.1) mmol/L Chloride 105 (98-107) mmol/L Carbon Dioxide 22 (22-30) mmol/L Anion Gap 12 mmol/L BUN 17 (7-17) mg/dL Creatinine 0.82 (0.52-1.04) mg/dL Est GFR (CKD-EPI)AfAm 81 (>60 ml/min/1.73 sqM) Est GFR (CKD-EPI)NonAf 70 (>60 ml/min/1.73 sqM) Glucose 95 (74-99) mg/dL Calcium 9.8 (8.4-10.2) mg/dL Magnesium 2.0 (1.6-2.3) mg/dL Total Bilirubin 0.9 (0.2-1.3) mg/dL AST 40 H (14-36) U/L ALT 77 H (9-52) U/L Alkaline Phosphatase 142 H (38-126) U/L Total Creatine Kinase (30-135) U/L CK-MB (CK-2) (0.0-2.4) ng/mL CK-MB (CK-2) Rel Index Troponin I (0.000-0.034) ng/mL NT-Pro-B Natriuret Pep pg/mL Total Protein 6.6 (6.3-8.2) g/dL Albumin 4.2 (3.5-5.0) g/dL - Radiology Data Radiology results: image reviewed (Computed tomography scan of the chest negative for pulmonary embolism.) Disposition Clinical Impression: Dyspnea Disposition: HOME SELF-CARE Condition: Stable Instructions: Dyspnea (ED) Additional Instructions: Please follow-up with Dr. Denis Wednesday as planned. He is also follow-up with your primary care physician in the next day or 2 for recheck. Return for increased difficulty in breathing, chest pain, weakness or fatigue, worsening symptoms or other concerns. Is patient prescribed a controlled substance at d/c from ED?: No Referrals: Dane Sharp MD [Primary Care Provider] - 1-2 days Time of Disposition: 17:03
[2017-10-18] MEDS ORDERED: RX INFO: IV CONTRAST WAS GIVEN 1 EACH MISC MISCELLANE PRN (16:00)
[2017-10-18 16:07] LABS: Basophils % (A) 0 %; Eosinophils # (A) 0.1 k/uL (0-0.7); Eosinophils % (A) 4 %; HCT 37.2 % (34.0-46.0); HGB 12.8 gm/dL (11.4-16.0); Lymphocytes # (A) 1.4 k/uL (1.0-4.8); Lymphocytes % (A) 49 %; MCH 31.5 pg (25.0-35.0); MCHC 34.3 g/dL (31.0-37.0); MCV 91.9 fL (80.0-100.0); Mean Platelet Volume 7.8; Monocytes % (A) 2 %; Neutrophils # (A) 1.2 k/uL (1.3-7.7); Neutrophils % (A) 43 %; Platelet Count 172 k/uL (150-450); RBC 4.05 m/uL (3.80-5.40); RDW 13.2 % (11.5-15.5); WBC 2.8 k/uL (3.8-10.6)
[2017-10-18 16:15] LABS: Albumin 4.2 g/dL (3.5-5.0); Calcium 9.8 mg/dL (8.4-10.2); Partial Thromboplastin Time 23.1 sec (22.0-30.0); Potassium 4.4 mmol/L (3.5-5.1); Prothrombin Time 9.6 sec (9.0-12.0); Total Bilirubin 0.9 mg/dL (0.2-1.3); Total Protein 6.6 g/dL (6.3-8.2)
[2017-10-18 16:27] VITALS: RESP 16
[2017-10-18 16:40] LABS: Creatine Kinase MB 1.1 ng/mL (0.0-2.4); Troponin I 0.012 ng/mL (0.000-0.034)
--- NOTE | 2017-10-18 16:44 | CT ---
EXAMINATION TYPE: CT angio chest DATE OF EXAM: 10/18/2017 4:31 PM COMPARISON: 07/11/2015 HISTORY: SOB x2 days. HX of ovarian CA CT DLP: 321.6 mGycm Automated exposure control for dose reduction was used. CONTRAST: CTA scan of the thorax is performed with IV Contrast, patient injected with 65 mL of Isovue 370, pulm onary embolism protocol. There are 3-D post processed images.. FINDINGS: There is some pleural thickening and reticular infiltrate at the lung apices. There is subsegmental a telectasis at the posterior lung bases. There is no pleural effusion. There is no pericardial effusion. Heart appears slightly enlarged. There is normal contrast opacifica tion of the pulmonary arteries. I see no filling defects. There is no evidence of aortic aneurysm or dissection. Ascending aorta measures 3.4 cm. There is no mediastinal adenopathy. There are no hilar m asses. The bony thorax appears intact. IMPRESSION: NO EVIDENCE OF PULMONARY EMBOLISM. FIBROTIC CHANGES AT THE LUNG APICES. MILD ATHEROSCLEROTIC VASCULAR DISEASE. NO ADVERSE CHANGE COMPARED TO OLD EXAM.
[2017-10-18 17:23] VITALS: BP 145/70; PULSE 78
== END 2017-10-18 17:21 | disposition home or self-care (01) ==
LOC: EC 14:53
DX: R06.00 Dyspnea, unspecified (principal); R07.89 Other chest pain; R53.83 Other fatigue; E78.5 Hyperlipidemia, unspecified; M19.90 Unspecified osteoarthritis, unspecified site; F32.9 Major depressive disorder, single episode, unspecified; C78.5 Secondary malignant neoplasm of large intestine and rectum; Z85.43 Personal history of malignant neoplasm of ovary; Z92.21 Personal history of antineoplastic chemotherapy; Z86.69 Personal history of other diseases of the nervous system and sense organs; Z86.73 Personal history of transient ischemic attack (TIA), and cerebral infarction without residual deficits; Z87.891 Personal history of nicotine dependence; Z79.1 Long term (current) use of non-steroidal anti-inflammatories (NSAID); Z79.899 Other long term (current) drug therapy; Z88.5 Allergy status to narcotic agent; Z88.2 Allergy status to sulfonamides; Z88.8 Allergy status to other drugs, medicaments and biological substances; Z91.041 Radiographic dye allergy status
CPT/HCPCS: 99285; 96374; 96375 ×2; 36415; 93005; 83880; 80053; 82550; 82553; 83735; 84484; 85025; 85610; 85730; 71275; J1200; J2930; Q9967

== ENCOUNTER → 2017-11-25 | Outpatient (CLI) | payer MEDICARE ==
--- NOTE | 2017-11-26 07:41 | CT ---
EXAMINATION TYPE: CT ChestAbdPelvis w con DATE OF EXAM: 11/25/2017 INDICATION: Follow up Ovarian cancer COMPARISON: PET CT 07/31/2017, CT chest 10/18/2017 CT DLP: 1145.5 mGycm CONTRAST: Performed with Oral Contrast and with IV Contrast, patient injected with 100 mL of Isovue 300. TECHNIQUE: Axial images at 5 mm thick sections. Reconstructed images in the coronal plane. Delayed images through the kidneys. FINDINGS: CT CHEST: Portion of the thyroid visualized is normal. Bilateral lung apical scarring is present. This appears stable from comparison. Some compressive atel ectasis within the dependent portions of the lung bases bilaterally. No enlarged mediastinal or hilar adenopathy is evident. The ascending aorta diameter at the level of the main pulmonary artery is 3.4 cm. The main pulmonary artery diameter at the bifurcation is 2.5 cm. Coronary artery calcifications present. CT ABDOMEN: Liver: There is mild fatty infiltration liver Spleen: Normal Pancreas: Normal Adrenal glands: The adrenal glands are normal. Gallbladder: Normal Kidneys: No masses are evident. No hydronephrosis is present. There is a 3.1 cm cyst measuring 7 Ho unsfield units on the superior posterior right kidney. Delayed images were obtained through the kidn eys, which remain unremarkable. Aorta: Vascular calcification is within the aorta. Inferior vena cava: Normal. CT PELVIS: Loops of bowel within the abdomen and pelvis are normal. There is a small amount of small bowel her niated into the anterior lower pelvic region. No obstruction is evident. There are loops of bowel wh ich are incompletely distended or lack oral contrast limiting their evaluation. Appendix: Normal as visualized. Urinary bladder: Normal. Genitourinary structures and lymph nodes: Uterus and ovaries are not identified. Adnexal regions are clear. No free fluid is within the pelvis. No abnormal adenopathy is within the pelvis or abdomen. Pr evious aortic bifurcation lymph node is diminished in size currently measuring 0.5 cm. Osseous structures: No suspicious lytic or sclerotic lesions. IMPRESSIONS: 1. No suspicious changes for metastatic ovarian carcinoma. 2. Right renal cyst.
== END | disposition home or self-care (01) ==
LOC: RADPROMAIN 14:00
PROVIDERS: ATTEND Internal Medicine Hematology & Oncology
DX: N28.1 Cyst of kidney, acquired (principal); C56.9 Malignant neoplasm of unspecified ovary; Z91.041 Radiographic dye allergy status
CPT/HCPCS: 71260; 74177; J1642; Q9967

== ENCOUNTER → 2018-02-08 | Outpatient (CLI) | payer MEDICARE ==
--- NOTE | 2018-02-08 13:42 | US ---
EXAMINATION TYPE: US thyroid st tissue head/neck DATE OF EXAM: 02/08/2018 COMPARISON: 2016 CLINICAL HISTORY: M54.2 Cervicalgia. Recurrence 5 x ovarian cancer, pt on chemo GLAND SIZE: Right Lobe: 4.1x1.2x1.5 cm Overall Parenchyma: homogenous Left Lobe: 3.9x1.1x1.0 cm Overall Parenchyma: homogeneous Isthmus Thickness: 0.3 cm NODULES RIGHT: # of nodules measured on right: 1 1. 0.6 X 0.4 x 0.2 cm mixed nodule at the mid pole with well-defined margins; . This nodule is wid er than tall and shows no intranodular vascularity. Prior size: 0.4 x 0.5 x 0.2 cm LEFT: # of nodules measured on left: 1 1. 0.3X 0.2 x 0.2 cm cystic nodule at the mid pole with well-defined margins; This nodule is wide r than tall and shows no intranodular vascularity. Prior size: 0.2 x 0.2 x 0.1 cm ISTHMUS: # of nodules measured in the isthmus: 0 Bilateral neck scanned, no evidence of lymphadenopathy. No prominent nodes seen IMPRESSION: Nonspecific thyroid nodularity.
== END | disposition home or self-care (01) ==
LOC: RADUSWWP 12:16
PROVIDERS: ATTEND Otolaryngology Plastic Surgery within the Head & Neck
DX: E04.1 Nontoxic single thyroid nodule (principal); M54.2 Cervicalgia
CPT/HCPCS: 76536

== ENCOUNTER → 2018-03-10 | Outpatient (CLI) | payer MEDICARE ==
[2018-03-10 16:36] LABS: Basophils % (A) 0 %; Eosinophils # (A) 0.1 k/uL (0-0.7); Eosinophils % (A) 1 %; HCT 43.1 % (34.0-46.0); HGB 13.7 gm/dL (11.4-16.0); Hypochromasia Slight; Lymphocytes # (A) 1.6 k/uL (1.0-4.8); Lymphocytes % (A) 16 %; MCH 30.6 pg (25.0-35.0); MCHC 31.8 g/dL (31.0-37.0); MCV 96.1 fL (80.0-100.0); Monocytes # (A) 0.4 k/uL (0-1.0); Monocytes % (A) 4 %; Neutrophils # (A) 7.9 k/uL (1.3-7.7); Neutrophils % (A) 78 %; Platelet Count 228 k/uL (150-450); RBC 4.49 m/uL (3.80-5.40); WBC 10.1 k/uL (3.8-10.6)
[2018-03-10 16:47] LABS: Albumin 4.4 g/dL (3.5-5.0); Calcium 10.8 mg/dL (8.4-10.2); Potassium 4.5 mmol/L (3.5-5.1); Total Bilirubin 0.4 mg/dL (0.2-1.3); Total Protein 7.4 g/dL (6.3-8.2)
== END ==
LOC: LABWHC1 15:35
PROVIDERS: ATTEND Family Medicine
DX: E78.5 Hyperlipidemia, unspecified (principal)
CPT/HCPCS: 36415; 80053; 85025

== ENCOUNTER → 2018-05-11 | Outpatient (CLI) | payer MEDICARE ==
--- NOTE | 2018-05-12 07:14 | US ---
EXAMINATION TYPE: US kidneys/renal and bladder DATE OF EXAM: 05/11/2018 COMPARISON: CT CLINICAL HISTORY: R94.4 ABN KIDNEY FUNCTIONS. Recent abnormal labs EXAM MEASUREMENTS: Right Kidney: 9.7 x 5.2 x 5.3 cm Left Kidney: 10.7 x 5.6 x 4.8 cm Right Kidney: Cyst upper pole= 3.8 x 2.8 x 4.3 cm Left Kidney: Appeared wnl Bladder: Appeared wnl Bilateral Jets seen: Only left jet visualized There is no evidence for hydronephrosis at this point in time. No nephrolithiasis is seen. No solid masses are identified. The urinary bladder is anechoic. IMPRESSION: Simple cyst upper pole right kidney.
== END ==
LOC: RADUSWWP 16:09
PROVIDERS: ATTEND Family Medicine
DX: N28.1 Cyst of kidney, acquired (principal)
CPT/HCPCS: 76770

== ENCOUNTER → 2018-07-27 | Outpatient (CLI) | payer MEDICARE ==
--- NOTE | 2018-07-27 14:18 | CT ---
EXAMINATION TYPE: CT ChestAbdPelvis w con DATE OF EXAM: 07/27/2018 INDICATION: Ovarian CA COMPARISON: 11/25/2017 CT DLP: 1107.9 mGycm CONTRAST: Performed with Oral Contrast and with IV Contrast, patient injected with 100 mL of Isovue 300. TECHNIQUE: Axial images at 5 mm thick sections. Reconstructed images in the coronal plane. Delayed images through the kidneys. FINDINGS: CT CHEST: Portion of the thyroid visualized is normal. No suspicious lung nodules or focal infiltrates are present. No enlarged mediastinal or hilar adenopathy is evident. The ascending aorta diameter at the level of the main pulmonary artery is 3.4 cm. The main pulmonary artery diameter at the bifurcation is 2.[address] ABDOMEN: Liver: There is mild fatty infiltration liver. Spleen: Normal Pancreas: Normal Adrenal glands: The adrenal glands are normal. Gallbladder: Normal Kidneys: No masses are evident. No hydronephrosis is present. There is a 3.0 cm cyst in the posteri or superior right kidney measuring 5 Hounsfield units. Delayed images were obtained through the kidn eys, which remain unremarkable. Aorta: Vascular calcification is within the aorta. Inferior vena cava: Normal. CT PELVIS: No omental caking is evident. No fluid collections are evident. No large cysts are evident . Loops of bowel within the abdomen and pelvis are normal. There are loops of bowel which are incom pletely distended or lack oral contrast limiting their evaluation. Appendix: Not visualized. Urinary bladder: Normal. Genitourinary structures: Uterus and ovaries are not identified. Osseous structures: No suspicious lytic or sclerotic lesions. IMPRESSIONS: 1. No suspicious changes suggest metastatic ovarian carcinoma.
== END | disposition home or self-care (01) ==
LOC: RADPROMAIN 10:08
PROVIDERS: ATTEND Internal Medicine Hematology & Oncology
DX: C56.9 Malignant neoplasm of unspecified ovary (principal)
CPT/HCPCS: 71260; 74177; Q9967

== ENCOUNTER → 2018-09-22 | Outpatient (CLI) | payer MEDICARE ==
--- NOTE | 2018-09-23 14:48 | MM ---
Reason for exam: screening (asymptomatic). Last mammogram was performed 1 year and 1 month ago. History: Patient is postmenopausal and has history of ovarian cancer at age 67. Family history of breast cancer in paternal aunt at age 50, breast cancer in maternal cousin, and breast cancer in maternal aunt at age 50. Excisional biopsy of the left breast, 1969. Took estrogen for 20 years beginning at age 45. Physical Findings: A clinical breast exam by your physician is recommended on an annual basis and results should be correlated with mammographic findings. MG 3D Screening Mammo W/Cad Bilateral CC and MLO view(s) were taken. Prior study comparison: August 16, 2017, bilateral MG 3d screening mammo w/cad. August 13, 2016, bilateral MG 3d screening mammo w/cad. There are scattered fibroglandular densities. No suspicious abnormality. ASSESSMENT: Negative, BI-RAD 1 RECOMMENDATION: Routine screening mammogram of both breasts in 1 year. Manage on a clinical basis with regard to right underarm swelling for which CT is being performed today.
== END | disposition home or self-care (01) ==
LOC: RADMAMWWP 09:25
PROVIDERS: ATTEND Internal Medicine Hematology & Oncology
DX: Z12.31 Encounter for screening mammogram for malignant neoplasm of breast (principal)
CPT/HCPCS: 77063; 77067

== ENCOUNTER → 2018-09-22 | Outpatient (CLI) | payer MEDICARE ==
--- NOTE | 2018-09-22 12:11 | CT ---
EXAMINATION TYPE: CT soft tissue neck w con DATE OF EXAM: 09/22/2018 COMPARISON: None HISTORY: 78-year-old female right side neck base swelling/pain, and right axilla swelling and pain TECHNIQUE: Contiguous axial scanning of the soft tissues of the neck performed with IV Contrast, julio ent injected with 100 mL of Isovue 300. Coronal/sagittal reconstructions performed. CT DLP: 484.3 mGycm Automated exposure control for dose reduction was used. FINDINGS: Right anterior chest wall injection port with catheter going down below the field of view within the SVC. Visualized intracranial structures, orbits and globes, paranasal sinuses, and mastoid air cells appea r clear. Nasopharynx is clear. Some calcifications in the right greater than left palatine tonsils suggests sequela of prior infecti on. Some asymmetric nodular prominence along the right posterior tongue extending into the vallecular spa ce, likely asymmetric lingual tonsillar hypertrophy, refer to axial images 57 through 59. Epiglottis and prevertebral soft tissues are normal. The glottic and subglottic structures as well as the tracheal column are clear. Mild biapical pleural parenchymal scarring. The bilateral parotid, submandibular, and thyroid glands appear satisfactory. No cervical lymphadenopathy by CT size criteria. Bones: Moderate distention plate degenerative change in C4-C7 levels with reversal of the normal cerv ical lordosis. IMPRESSION: 1. ASYMMETRIC SOFT TISSUE PROMINENCE ALONG THE RIGHT POSTERIOR TONGUE EXTENDING SLIGHTLY INTO THE REGGIE LECULAR SPACE. SUSPECT ASYMMETRIC MILD HYPERTROPHY OF THE LINGUAL TONSILS. THIS CAN BE CONFIRMED WITH DIRECT VISUALIZATION. 2. OTHERWISE, NO CERVICAL LYMPHADENOPATHY OR SUSPICIOUS NECK MASS SEEN.
== END | disposition home or self-care (01) ==
LOC: RADPROMAIN 10:06
PROVIDERS: ATTEND Obstetrics & Gynecology Gynecology
DX: C56.9 Malignant neoplasm of unspecified ovary (principal); K14.8 Other diseases of tongue; R11.2 Nausea with vomiting, unspecified; Z88.2 Allergy status to sulfonamides; Z88.5 Allergy status to narcotic agent; Z88.8 Allergy status to other drugs, medicaments and biological substances
CPT/HCPCS: 70491; Q9967

== ENCOUNTER → 2018-10-24 | Outpatient (CLI) | payer MEDICARE ==
--- NOTE | 2018-10-24 19:04 | BD ---
EXAMINATION TYPE: Axial Bone Density DATE OF EXAM: 10/24/2018 COMPARISON: 11/27/2015 CLINICAL HISTORY: 78-year-old female long-term use of tamoxifen, ovarian cancer. Height: 65 IN Weight: 184 LBS FRAX RISK QUESTIONS: Secondary Osteoporosis: 3. Menopause before 45: AGE 41 PARTIAL HYST RISK FACTORS HISTORY OF: History of Wrist Fracture: MARTIN When: AGE 11 Active: YES Diet low in dairy products/other sources of calcium: YES Postmenopausal woman: AGE 41 Take estrogen and/or progesterone medications: NOT NOW How lon + YEARS MEDICATIONS: Additional Medications: VIT D, ANASTROZOLE, PROZAC, ATORVASTATIN, GABAPENTIN, MEDROL 4 MG DOSE PACK, CEFUROXIME Additional History: OVARIAN CANCER FIVE TIMES WITH CHEMO EXAM MEASUREMENTS: Bone mineral densitometry was performed using the [employer]. Bone mineral density as measured about the Lumbar spine is: ----- L1-L4(G/cm2): 1.053 T Score Values are as follows: ----- L2: -0.8 ----- L3: -1.0 ----- L4: -1.0 ----- L1-L4: -1.1 Bone mineral density has: Increased 1.7% since study of: 11/27/2015 Bone mineral density about the R hip (g/cm2): 0.913 Bone mineral density about the L hip (g/cm2): 0.930 T Score values are as follows: -----R Neck: -0.9 -----L Neck: -0.8 -----R Total: -0.6 -----L Total: -0.6 Bone mineral density has: Decreased -1.4% since study of: 11/27/2015 IMPRESSION: Osteopenia (T Score between -2.5 and -1). There is slightly increased risk of fracture and the patient may be considered for treatment. Re-Screen 2-5 years. NOTE: T-SCORE=SD OF THE YOUNG ADULT MEAN.
== END | disposition home or self-care (01) ==
LOC: RADBDWWP 08:27
PROVIDERS: ATTEND Internal Medicine Hematology & Oncology
DX: C56.9 Malignant neoplasm of unspecified ovary (principal); N95.1 Menopausal and female climacteric states; M85.88 Other specified disorders of bone density and structure, other site; Z79.811 Long term (current) use of aromatase inhibitors
CPT/HCPCS: 77080

== ENCOUNTER → 2018-11-23 | Outpatient (CLI) | payer MEDICARE | END | disposition home or self-care (01) | LOC: LABWHC1 12:10 | PROVIDERS: ATTEND Internal Medicine Hematology & Oncology | DX: C56.9 Malignant neoplasm of unspecified ovary (principal); Z91.041 Radiographic dye allergy status | CPT/HCPCS: 36415; 82565; 84520 ==

== ENCOUNTER → 2018-11-29 | Outpatient (CLI) | payer MEDICARE ==
--- NOTE | 2018-11-29 12:09 | CT ---
EXAMINATION TYPE: CT ChestAbdPelvis w con DATE OF EXAM: 11/29/2018 COMPARISON: Soft tissue neck CT dated 09/22/[address] chest abdomen pelvis dated 07/27/2018. HISTORY: Follow up scan per patient. History of ovarian cancer. Observe for metastases. CT DLP: 1308.8 mGycm. Automated Exposure Control for Dose Reduction was Utilized. CONTRAST: CT scan of the thorax, abdomen and pelvis is performed with IV Contrast, patient injected with 80 mL of Isovue 300. FINDINGS: LUNGS: There is biapical pleural parenchymal scarring. The lungs are grossly clear, there is no ramsey rning parenchymal mass or nodule identified. There is minimal bibasilar subsegmental dependent atelec tasis. There is no pleural effusion or pneumothorax seen. The tracheobronchial tree is patent. MEDIASTINUM: There are no greater than 1 cm hilar or mediastinal lymph nodes. No pericardial effusi on is seen. There are moderate coronary artery calcifications. 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 Moderate atherosclerosis of the thoracic aorta is noted. Right-sided M ediport terminates in the cavoatrial junction. LIVER/GB: Hepatic parenchyma is diffusely hypoattenuated in comparison to that of the spleen, most co mmonly seen in hepatic steatosis. This finding limits evaluation for hepatic masses. There is a quest ionable hepatic lesion of low suspicion although given its very subtle hypoattenuation in the subcaps ular right hepatic lobe on series 3 image 53 and coronal series 7 image 36 attention on follow-up exa ms is recommended. No intrahepatic biliary ductal dilatation. No cholelithiasis. PANCREAS: No significant abnormality is seen. SPLEEN: No significant abnormality is seen. ADRENALS: No significant abnormality is seen. KIDNEYS: There is a right upper pole renal cyst with a single thin septation measuring up to 4.5 cm. This is stable from the exam. No new renal lesions are seen. No hydronephrosis of either kidney. BOWEL: With focal sigmoid colonic luminal narrowing is likely on the basis of colonic spasm. No dilat ed large or small bowel is seen surgical clips are noted adjacent to the hepatic flexure.. GENITAL ORGANS: The uterus and ovaries are presumed to be surgically absent. LYMPH NODES: No greater than 1cm abdominal or pelvic lymph nodes are appreciated. OSSEOUS STRUCTURES: Moderate degenerative changes of the femoral acetabular joints are seen as there are subchondral cysts of the acetabulum. No new suspicious osseous lesions are seen and there are min imal degenerative changes of the spine. OTHER: Since of atherosclerosis of the abdominal aorta and its branches is noted. IMPRESSION: 1. Very subtle focal area of hypoattenuation in the subcapsular right hepatic lobe measuring 5 mm michelle t could simply relate to heterogeneity in the hepatic parenchyma or early hepatic lesion. This is allan y ill-defined and possibly artifact. This is not appreciated on priors and attention on follow-up exa ms is recommended. 2. No ascites, no mesenteric implants, no peritoneal carcinomatosis, and no adenopathy are seen. No n ew definitive evidence of metastatic disease.
== END | disposition home or self-care (01) ==
LOC: RADPROMAIN 11:00
PROVIDERS: ATTEND Internal Medicine Hematology & Oncology
DX: C56.9 Malignant neoplasm of unspecified ovary (principal); R93.2 Abnormal findings on diagnostic imaging of liver and biliary tract; Z91.041 Radiographic dye allergy status
CPT/HCPCS: 71260; 74177; J1642; Q9967

== ENCOUNTER → 2019-06-06 | Outpatient (CLI) | payer MEDICARE ==
--- NOTE | 2019-06-06 14:43 | CT ---
EXAMINATION TYPE: CT ChestAbdPelvis w con DATE OF EXAM: 06/06/2019 COMPARISON: 11/29/2018 HISTORY: Ovarian cancer CT DLP: 1814 mGycm. Automated Exposure Control for Dose Reduction was Utilized. CONTRAST: CT scan of the thorax, abdomen and pelvis is performed with IV Contrast, patient injected with 100 ml mL of Isovue 300. FINDINGS: LUNGS: Redemonstration of biapical pleural parenchymal scarring. Bibasilar subsegmental atelectasis. The lungs are grossly clear, there is no concerning parenchymal mass or nodule identified. There is no pleural effusion or pneumothorax seen. The tracheobronchial tree is patent. MEDIASTINUM: Right-sided Mediport is again seen. This terminates in the cavoatrial junction appropria tely. There are no greater than 1 cm hilar or mediastinal lymph nodes. No pericardial effusion is s een. Moderate coronary calcifications. LIVER/GB: Hepatic parenchyma is diffusely hypoattenuated in comparison to that of the spleen, most co mmonly seen in hepatic steatosis. This finding limits evaluation for hepatic masses. Previously seen questionable hepatic lesion subcapsular right hepatic lobe does not persist on today's exam. No intra hepatic biliary ductal dilatation. No cholelithiasis. PANCREAS: No significant abnormality is seen. SPLEEN: No splenomegaly. ADRENALS: No nodularity or thickening. KIDNEYS: Kidneys enhance and excrete symmetrically. No hydronephrosis. Right upper pole approximately 3.6 cm renal cyst is again seen. BOWEL: Sigmoid colon is redundant with few diverticula. No pericolonic fat stranding. Mild degree col onic fecal stasis. Diastases recti noted. Appendix is within normal limits. GENITAL ORGANS: Surgical clips are seen in the pelvis from prior hysterectomy. Both ovaries are presu med to be surgically absent. LYMPH NODES: No greater than 1cm abdominal or pelvic lymph nodes are appreciated. OSSEOUS STRUCTURES: Mild multilevel degenerative disc disease. OTHER: Extensive atherosclerosis of the abdominal aorta and its branches. IMPRESSION: 1. The previously questioned hepatic lesion does not persist on today's examination and the previousl y related to heterogeneity in this patient with hepatic steatosis. No suspicious hepatic lesion is se en. 2. No new findings to suggest visceral or osseous metastasis in the chest, abdomen or pelvis. No new adenopathy.
== END | disposition home or self-care (01) ==
LOC: RADPROMAIN 10:39
PROVIDERS: ATTEND Internal Medicine Hematology & Oncology
DX: Z03.89 Encounter for observation for other suspected diseases and conditions ruled out (principal); C56.9 Malignant neoplasm of unspecified ovary; K76.0 Fatty (change of) liver, not elsewhere classified; Z91.041 Radiographic dye allergy status; Z95.828 Presence of other vascular implants and grafts
CPT/HCPCS: 71260; 74177; J1642; Q9967

== ENCOUNTER → 2019-09-20 | Outpatient (CLI) | payer MEDICARE ==
--- NOTE | 2019-09-20 12:47 | CT ---
EXAMINATION TYPE: CT ChestAbdPelvis w con DATE OF EXAM: 09/20/2019 COMPARISON: 06/06/2019, 11/29/2018 HISTORY: 79-year-old female Follow up ovarian cancer, increase in CA125 TECHNIQUE: Contiguous axial scanning of the chest, abdomen, and pelvis performed with IV Contrast, pa tient injected with 80 mL of Isovue 300. Delayed images through the kidneys were obtained. Coronal/sa gittal reconstructions performed. CT DLP: 1331.6 mGycm Automated exposure control for dose reduction was used. FINDINGS: CHEST: Right anterior chest wall injection for catheter tip at the cavoatrial junction. Heart normal size without pericardial effusion. LAD calcifications are present. Aorta normal caliber with mild atherosclerotic arch calcifications and bovine configuration to the ao rtic arch. No thoracic lymphadenopathy. Biapical pleural-parenchymal scarring redemonstrated. Scattered mild emphysematous change. Mild depen dent atelectasis. No suspicious pulmonary nodules or masses. No consolidation or pleural effusion. ABDOMEN: Liver is enlarged measuring 20.4 cm with low attenuation. No focal liver lesion is seen with particul ar attention to the previously questioned subcapsular site within the right liver lobe. Portal venous system is patent. No biliary ductal dilatation. Gallbladder, adrenal glands, left kidney, spleen, and pancreas appear within normal limits. 4.1 cm cyst upper pole right kidney. Nonenlarged 5 mm gastrohepatic ligament lymph node is unchanged. Otherwise, no mesenteric or retroper itoneal lymphadenopathy. No peritoneal deposits are seen. Some surgical clips along the right omentum . Moderate atherosclerotic calcifications abdominal aorta and iliac arteries without aneurysm. Few scattered surgical clips along the iliac chains. Oral contrast progressed into the hepatic flexure. Mild to moderate stool burden. Sigmoid diverticulo sis. No pericolonic inflammatory change. No dilated small bowel, free fluid, or free air. PELVIS: Bladder urine distended. Uterus and ovaries surgically absent. An area of 1.4 cm nodularity along the right lateral aspect of the vaginal cuff, axial image 114, is unchanged from 06/06/2019 but may be s lightly more prominent from 11/29/2018. In addition, an area of 1.5 cm nodularity in the region of the cul-de-sac, axial image 110, seems to be new and can be viewed with suspicion in the setting of incre asing tumor markers. BONES: Mild degenerative changes of the hips. Degenerative disc disease L5-S1 and facet arthropathy. No osse ous destructive process. IMPRESSION: 1. A 1.5 CM AREA OF SOFT TISSUE NODULARITY IN THE CUL-DE-SAC, AXIAL IMAGE 110, APPEARS NEW AND CAN BE VIEWED WITH SUSPICION (NEW PERITONEAL DEPOSIT) IN THE SETTING OF INCREASING TUMOR MARKERS. 2. 1.4 CM NODULARITY ALONG THE RIGHT LATERAL ASPECT OF THE VAGINAL CUFF COULD REPRESENT REDUNDANCY AL MARIO THE SURGICAL MARGIN IT IS NOT SIGNIFICANTLY CHANGED FROM 06/06/2019. ATTENTION ON FOLLOW-UP. 3. OTHERWISE, NO OTHER FINDINGS OF METASTATIC DISEASE. 4. HEPATIC STEATOSIS. COPD WITH MILD EMPHYSEMA.
== END | disposition home or self-care (01) ==
LOC: RADPROMAIN 11:03
PROVIDERS: ATTEND Internal Medicine Hematology & Oncology
DX: C56.9 Malignant neoplasm of unspecified ovary (principal); K76.0 Fatty (change of) liver, not elsewhere classified; J43.9 Emphysema, unspecified; Z91.041 Radiographic dye allergy status
CPT/HCPCS: 71260; 74177; J1642; Q9967

== ENCOUNTER → 2019-11-22 | Outpatient (CLI) | payer MEDICARE ==
--- NOTE | 2019-11-23 10:26 | MM ---
Reason for exam: screening (asymptomatic). Last mammogram was performed 1 year and 2 months ago. History: Patient is postmenopausal and has history of ovarian cancer at age 67. Family history of breast cancer in paternal aunt at age 50, breast cancer in maternal cousin, and breast cancer in maternal aunt at age 50. Excisional biopsy of the left breast, 1969. Took estrogen for 20 years beginning at age 45. Physical Findings: A clinical breast exam by your physician is recommended on an annual basis and results should be correlated with mammographic findings. MG 3D Screening Mammo W/Cad Bilateral CC and MLO view(s) were taken. Prior study comparison: September 22, 2018, bilateral MG 3d screening mammo w/cad. August 16, 2017, bilateral MG 3d screening mammo w/cad. There are scattered fibroglandular densities. Finding: There are two vascular calcifications in the upper outer quadrant of the right breast. There is no discrete abnormality. ASSESSMENT: Benign, BI-RAD 2 RECOMMENDATION: Routine screening mammogram of both breasts in 1 year.
== END | disposition home or self-care (01) ==
LOC: RADMAMWWP 09:51
PROVIDERS: ATTEND Internal Medicine Hematology & Oncology
DX: Z12.31 Encounter for screening mammogram for malignant neoplasm of breast (principal); Z80.3 Family history of malignant neoplasm of breast
CPT/HCPCS: 77063; 77067

== ENCOUNTER → 2020-02-14 | Outpatient (CLI) | payer MEDICARE ==
--- NOTE | 2020-02-14 13:07 | CT ---
EXAMINATION TYPE: CT ChestAbdPelvis w con DATE OF EXAM: 02/14/2020 COMPARISON: Most recent CT September 20, 2019 and older CTs. Most recent PET/CT July 31, 2017. HISTORY: Follow up for ovarian CA CT DLP: 890.8 mGycm. Automated Exposure Control for Dose Reduction was Utilized. CONTRAST: CT scan of the thorax, abdomen and pelvis is performed with oral and with IV Contrast, patient inject ed with 100 mL of Isovue 300. FINDINGS: LUNGS: Dependent atelectasis bilateral lower lungs. Mild linear scarring or atelectasis in the left l corbin base. No suspicious new nodules or masses. No pleural effusion or pneumothorax seen bilaterally. MEDIASTINUM: There are no greater than 1 cm hilar or mediastinal lymph nodes. No cardiomegaly or pe ricardial effusion is seen. Stable right internal jugular Mediport catheter. Coronary artery calcifi cation is redemonstrated. LIVER/GB: Slightly prominent right pelvic lobe redemonstrated. PANCREAS: No significant abnormality is seen. SPLEEN: No significant abnormality is seen. ADRENALS: No significant abnormality is seen. KIDNEYS: Persistence of apparent thin-walled 3.6 cm partially exophytic cyst posteriorly upper pole o f the right kidney. BOWEL: Oral contrast reaches level of the sigmoid colon. No suspicious small or large bowel dilatatio n. Occasional diverticula in the sigmoid colon again seen GENITAL ORGANS: Uterus is surgically absent. Stable 1.4 cm nodularity along the right aspect of the r emnant vaginal cuff axial image 111 is unchanged from several prior studies. No new suspicious pelvic masses. LYMPH NODES: No new greater than 1cm abdominal or pelvic lymph nodes are appreciated. A few scattered surgical clips along the iliac chain lymph nodes bilaterally are redemonstrated. OSSEOUS STRUCTURES: Slight underlying scoliotic curvature some disc space narrowing and vacuum disc p henomenon in the midthoracic spine with mild anterior spurring. Vacuum disc phenomenon with mild to m oderate disc space narrowing lumbosacral junction. OTHER: No significant additional abnormality is seen. IMPRESSION: No suspicious new mass or adenopathy identified to suggest active neoplastic recurrence.
== END | disposition home or self-care (01) ==
LOC: RADCTMAIN 11:42
PROVIDERS: ATTEND Internal Medicine Hematology & Oncology
DX: Z03.89 Encounter for observation for other suspected diseases and conditions ruled out (principal); C56.9 Malignant neoplasm of unspecified ovary; Z88.2 Allergy status to sulfonamides; Z88.5 Allergy status to narcotic agent; Z88.8 Allergy status to other drugs, medicaments and biological substances; Z91.041 Radiographic dye allergy status
CPT/HCPCS: 71260; 74177; Q9967

== ENCOUNTER → 2020-03-22 | Outpatient (CLI) | payer MEDICARE | END | disposition home or self-care (01) | LOC: CPPFTMAIN 14:22 | PROVIDERS: ATTEND Internal Medicine Sleep Medicine | DX: J44.9 Chronic obstructive pulmonary disease, unspecified (principal) | CPT/HCPCS: 94618 ==

== ENCOUNTER → 2020-03-28 | Outpatient (CLI) | payer MEDICARE ==
[~2020-03-28] MED LIST changes: -DEXAMETHASONE SOD PHOSPHATE 10 MG/ML 1 ML VIAL IV ONE; -HEPARIN SODIUM,PORCINE 5,000 UNIT/ML 1 ML VIAL SQ ONE; -LACTATED RINGERS 1,000 ML IV SCH; -LIDOCAINE 1% 20 ML VIAL (10MG/ML) FOR IV START INTRADERMA PRN; -Pre Op ABX Message 1 EACH MISC MISCELLANE ONE; +REGADENOSON 0.4 MG/5 ML SYRINGE IV ONE
--- NOTE | 2020-03-28 10:17 | ECHOF ---
Referral Reason:I20.9 angina pectoris MEASUREMENTS -------- HEIGHT: 165.1 cm WEIGHT: 73.5 kg BP: RVIDd: 3.8 cm (< 3.3) IVSd: 1.4 cm (0.6 - 1.1) LVIDd: 3.8 cm (3.9 - 5.3) LVPWd: 1.4 cm (0.6 - 1.1) IVSs: 1.8 cm LVIDs: 2.1 cm LVPWs: 1.6 cm LAESV Index (A-L): 21.12 ml/m Ao Diam: 2.9 cm (2.0 - 3.7) AV Cusp: 1.9 cm (1.5 - 2.6) MV EXCURSION: 11.676 mm (> 18.000) MV EF SLOPE: 53 mm/s (70 - 150) EPSS: 0.5 cm MV E Sami: 0.53 m/s MV DecT: 357 ms MV A Sami: 0.85 m/s MV E/A Ratio: 0.63 RAP: 5.00 mmHg RVSP: 25.59 mmHg FINDINGS -------- This was a technically difficult study with suboptimal apical views. The left ventricular size is normal. There is moderate concentric left ventricular hypertrophy. O verall left ventricular systolic function is normal with, an EF between 55 - 60 %. The diastolic fi lling pattern is normal for the age of the patient 8.51. The right ventricle is mild to moderately enlarged. Normal LA size by volume 22+/-6 ml/m2. The right atrium was not well visualized. 5.0mg of Lumason was utilized for enhancement of images Interatrial and interventricular septum intact. The aortic valve is trileaflet and appears structurally normal. There is no evidence of aortic regu rgitation. There is no evidence of aortic stenosis. No mitral regurgitation. Mild tricuspid regurgitation present. There is no evidence of pulmonary hypertension. The right v entricular systolic pressure, as measured by Doppler, is 25.59mmHg. There is no pulmonic regurgitation present. The aortic root size is normal. IVC Not well visulized. There is no pericardial effusion. CONCLUSIONS -------- 1. The left ventricular size is normal. 2. There is moderate concentric left ventricular hypertrophy. 3. Overall left ventricular systolic function is normal with, an EF between 55 - 60 %. 4. The diastolic filling pattern is normal for the age of the patient 8.51 5. The right ventricle is mild to moderately enlarged. 6. Mild tricuspid regurgitation present. [employer] BOSS: Osiris Quick RDCS
--- NOTE | 2020-03-28 14:59 | EST ---
EXERCISE STRESS AGE: 79 SEX: F HT: 5'5" WT: 162 PROTOCOL: Lexiscan Cardiolite Stress Test HEART RATE REST: 62 BLOOD PRESSURE REST: 135/82 MAXIMUM HEART RATE ACHIEVED: 113 MAXIMUM BLOOD PRESSURE: 215/49 INDICATIONS: Chest pain. CLINICAL INFORMATION: Baseline EKG shows sinus rhythm, normal axis, normal intervals. Patient was given intravenous Lexiscan as per protocol. Did not have chest pain or diagnostic ST-segment depression. CONCLUSION: 1. Negative stress test by EKG criteria. 2. Cardiolite portion of the stress test will be reported separately. MMODL / IJN: [id number] /
--- NOTE | 2020-03-28 19:18 | NM ---
EXAMINATION TYPE: NM stress lexiscan cardiolite DATE OF EXAM: 03/28/2020 COMPARISON: 12/22/2010 HISTORY: Angina pectoris TECHNIQUE: After the intravenous administration of 9.8 mCi Tc 99m Sestamibi - Cardiolite resting SPE CT images acquired 60 minutes post injection. The patient received 0.4mg Lexiscan, 26.8 mCi Tc 99m Sestamibi - Stress images obtained [address] injection FINDINGS: No fixed or reversible perfusion defects are evident. Stress and rest SPECT imaging appears symmetrical. Wall motion appears normal Ejection fraction of 70% is normal. Polar maps are normal. IMPRESSION: Normal stress myocardial study.
== END | disposition home or self-care (01) ==
LOC: RADNMMAIN 07:56
PROVIDERS: ATTEND Internal Medicine Interventional Cardiology
DX: I07.1 Rheumatic tricuspid insufficiency (principal); I20.9 Angina pectoris, unspecified
CPT/HCPCS: 93017; 78452; C8929; A9500; J2785; Q9950; 93306

== ENCOUNTER 2020-05-28 06:53 | Inpatient (IN) | payer MEDICARE ==
[2020-05-28] MEDS ORDERED: SODIUM CHLORIDE 0.9% 1,000 ML IV ONE (07:19)
--- NOTE | 2020-05-28 07:22 | ED ---
Weakness HPI - General Chief complaint: Weakness Stated complaint: +COVID, nausea, weakness Time Seen by Provider: 05/28/20 06:55 Source: patient, EMS, RN notes reviewed Mode of arrival: EMS Limitations: no limitations - History of Present Illness Initial comments: This is a 79-year-old female presents emergency department via EMS chief complaint of generalized weakness, positive covid. Patient states that she was diagnosed last week. Patient states that she still week she's having difficulty taking her medications. Patient states that she's had shortness breath, nausea vomiting. Patient states she does not want osmosis as she does not react well to them. Patient states that she has been diagnosed with COPD. Patient does not currently smoke. She's had on-and-off fevers, chills, severe body aches. She has no localized abdominal pain. - Related Data Home Medications Medication Instructions Recorded Confirmed Atorvastatin [Lipitor] 10 mg PO HS 08/25/17 05/28/20 FLUoxetine HCL [PROzac] 10 mg PO DAILY 10/18/17 05/28/20 Albuterol Inhaler [Ventolin Hfa 1 - 2 puff INHALATION RT-Q6H PRN 05/14/2007/17 Inhaler] Umeclidinium Brm/Vilanterol Tr 1 puff INHALATION RT-DAILY 05/14/20 05/28/20 [Anoro Ellipta 62.5-25 Mcg INH] Cholecalciferol [Vitamin D3 (25 1,000 unit PO DAILY 05/28/20 05/28/20 Mcg = 1000 Iu)] Allergies Allergy/AdvReac Type Severity Reaction Status Date / Time carboplatin AdvReac Severe HEART Verified 05/28/20 08:39 PROBLEMS, BLACKED OUT. codeine AdvReac Severe SEVERE Verified 05/28/20 08:39 HEADACHE Sulfa (Sulfonamide AdvReac Severe SEVERE Verified 05/28/20 08:39 Antibiotics) HEADACHE lorazepam [From Ativan] AdvReac Unknown VERY Verified 05/28/20 08:39 DROWSY - SLEPT 12 HOURS ondansetron AdvReac Unknown SWELLING Verified 05/28/20 08:39 [From Zofran (as OF TONGUE, hydrochloride)] UNABLE TO TALK prochlorperazine AdvReac Unknown CONFUSED- Verified 05/28/20 08:39 [From Compazine] FELT DRUGGED UP. Iodinated Contrast Media AdvReac Confusion Verified 05/28/20 08:39 [Iodinated Contrast Media - IV Dye] Review of Systems ROS Statement: Those systems with pertinent positive or pertinent negative responses have been documented in the HPI. ROS Other: All systems not noted in ROS Statement are negative. Past Medical History Past Medical History: Cancer, COPD, CVA/TIA, Hyperlipidemia, Osteoarthritis (OA) Additional Past Medical History / Comment(s): 2007 OVARIAN CANCER WITH SURGERY X2 AND CHEMO (LAST CHEMO 07/2015), TIA x 2, HX OF MIGRAINES, DIVERTICULOSIS migraines in past, UTI., STATES SORE LEFT LOWER EYE LID AND SURGERY SCHEDULED FOR 09/02/17., PT STATES UNSURE OF COPD., ITCHY SKIN, STATES VERY SENSITIVE TO MEDICATIONS AND ANESTHESIA. History of Any Multi-Drug Resistant Organisms: None Reported Past Surgical History: Bladder Surgery, Hysterectomy Additional Past Surgical History / Comment(s): 2007 cancerous ovarian mass removed, 01/2015 pelvic surgery for more cancer removal, colonoscopy, bladder suspension, hemorrhoidectomy, nose repair, ovarian cystectomy. Past Anesthesia/Blood Transfusion Reactions: Previous Problems w/ Anesthesia, Postoperative Nausea & Vomiting (PONV) Additional Past Anesthesia/Blood Transfusion Reaction / Comment(s): STATES DIFFICULTY WAKING UP- RECEIVED NARCAN , RECORDS REQUESTED FROM [facility] . (02/2015) Past Psychological History: Anxiety, Depression Smoking Status: Former smoker Past Alcohol Use History: None Reported Past Drug Use History: None Reported - Past Family History Father Family Medical History: Cancer Additional Family Medical History / Comment(s): Father had lymphoma. Mother Family Medical History: Cancer Additional Family Medical History / Comment(s): Mother had nasal cancer., SKIN CANCER General Exam General appearance: alert, in no apparent distress Head exam: Present: atraumatic, normocephalic, normal inspection Eye exam: Present: normal appearance, PERRL, EOMI. Absent: scleral icterus, conjunctival injection, periorbital swelling ENT exam: Present: normal exam, normal oropharynx, mucous membranes moist Neck exam: Present: normal inspection, full ROM. Absent: tenderness, meningismus, lymphadenopathy Respiratory exam: Present: decreased breath sounds. Absent: normal lung sounds bilaterally, respiratory distress, wheezes, rales, rhonchi, stridor Cardiovascular Exam: Present: regular rate, normal rhythm, normal heart sounds. Absent: systolic murmur, diastolic murmur, rubs, gallop, clicks GI/Abdominal exam: Present: soft, normal bowel sounds. Absent: distended, tenderness, guarding, rebound, rigid Neurological exam: Present: alert, oriented X3 Skin exam: Present: warm, dry, intact, normal color. Absent: rash Course Vital Signs 05/28/20 06:55 Temperature 99.0 F Pulse Rate 82 Respiratory 18 Rate Blood Pressure 122/90 O2 Sat by Pulse 96 Oximetry EKG Findings - EKG Comments: EKG Findings:: EKG performed at 7:34 normal sinus rhythm rate of 76 RI 172 QRS 68 QT/QTC 396/445 Medical Decision Making - Medical Decision Making 79-year-old female presented for generalized weakness, shortness of breath, nausea vomiting. Patient does have known coronavirus positive test. Patient has bilateral infiltrates on x-ray, hypoxia at 90% on room air. Patient said jaws weakness. Patient will be admitted for further evaluation and treatment. - Lab Data Result diagrams: 05/28/20 07:51 05/28/20 07:51 Lab Results 05/28/20 05/28/20 05/28/20 Range/Units 07:51 07:51 07:51 WBC 2.6 L (3.8-10.6) k/uL RBC 3.58 L (3.80-5.40) m/uL Hgb 11.7 (11.4-16.0) gm/dL Hct 36.1 (34.0-46.0) % MCV 100.9 H (80.0-100.0) fL MCH 32.8 (25.0-35.0) pg MCHC 32.5 (31.0-37.0) g/dL RDW 13.2 (11.5-15.5) % Plt Count 134 L (150-450) k/uL MPV 7.8 Neutrophils % 69 % Lymphocytes % 21 % Monocytes % 5 % Eosinophils % 3 % Basophils % 1 % Neutrophils # 1.8 (1.3-7.7) k/uL Lymphocytes # 0.5 L (1.0-4.8) k/uL Monocytes # 0.1 (0-1.0) k/uL Eosinophils # 0.1 (0-0.7) k/uL Basophils # 0.0 (0-0.2) k/uL PT 9.8 (9.0-12.0) sec INR 0.9 (<1.2) APTT 29.4 (22.0-30.0) sec D-Dimer 0.50 (<0.60) mg/L FEU Sodium 135 L (137-145) mmol/L Potassium 4.5 (3.5-5.1) mmol/L Chloride 105 (98-107) mmol/L Carbon Dioxide 25 (22-30) mmol/L Anion Gap 5 mmol/L BUN 15 (7-17) mg/dL Creatinine 0.86 (0.52-1.04) mg/dL Est GFR (CKD-EPI)AfAm 75 (>60 ml/min/1.73 sqM) Est GFR (CKD-EPI)NonAf 65 (>60 ml/min/1.73 sqM) Glucose 111 H (74-99) mg/dL Plasma Lactic Acid Theo (0.7-2.0) mmol/L Calcium 9.6 (8.4-10.2) mg/dL Magnesium 1.9 (1.6-2.3) mg/dL Total Bilirubin 1.2 (0.2-1.3) mg/dL AST 37 H (14-36) U/L ALT 19 (4-34) U/L Alkaline Phosphatase 146 H (38-126) U/L Lactate Dehydrogenase 1081 H (313-618) U/L C-Reactive Protein 45.7 H (<10.0) mg/L Total Protein 6.8 (6.3-8.2) g/dL Albumin 3.7 (3.5-5.0) g/dL 05/28/20 Range/Units 07:51 WBC (3.8-10.6) k/uL RBC (3.80-5.40) m/uL Hgb (11.4-16.0) gm/dL Hct (34.0-46.0) % MCV (80.0-100.0) fL MCH (25.0-35.0) pg MCHC (31.0-37.0) g/dL RDW (11.5-15.5) % Plt Count (150-450) k/uL MPV Neutrophils % % Lymphocytes % % Monocytes % % Eosinophils % % Basophils % % Neutrophils # (1.3-7.7) k/uL Lymphocytes # (1.0-4.8) k/uL Monocytes # (0-1.0) k/uL Eosinophils # (0-0.7) k/uL Basophils # (0-0.2) k/uL PT (9.0-12.0) sec INR (<1.2) APTT (22.0-30.0) sec D-Dimer (<0.60) mg/L FEU Sodium (137-145) mmol/L Potassium (3.5-5.1) mmol/L Chloride (98-107) mmol/L Carbon Dioxide (22-30) mmol/L Anion Gap mmol/L BUN (7-17) mg/dL Creatinine (0.52-1.04) mg/dL Est GFR (CKD-EPI)AfAm (>60 ml/min/1.73 sqM) Est GFR (CKD-EPI)NonAf (>60 ml/min/1.73 sqM) Glucose (74-99) mg/dL Plasma Lactic Acid Theo 1.2 (0.7-2.0) mmol/L Calcium (8.4-10.2) mg/dL Magnesium (1.6-2.3) mg/dL Total Bilirubin (0.2-1.3) mg/dL AST (14-36) U/L ALT (4-34) U/L Alkaline Phosphatase (38-126) U/L Lactate Dehydrogenase (313-618) U/L C-Reactive Protein (<10.0) mg/L Total Protein (6.3-8.2) g/dL Albumin (3.5-5.0) g/dL Disposition Clinical Impression: Pneumonia due to COVID-19 virus, Hypoxia Disposition: ADMITTED IP TO THIS HOSP Condition: Fair Referrals: Dane Sharp MD [Primary Care Provider] - 1-2 days
[2020-05-28 08:42] LABS: Basophils % (A) 1 %; Eosinophils # (A) 0.1 k/uL (0-0.7); Eosinophils % (A) 3 %; HCT 36.1 % (34.0-46.0); HGB 11.7 gm/dL (11.4-16.0); Lymphocytes # (A) 0.5 k/uL (1.0-4.8); Lymphocytes % (A) 21 %; MCH 32.8 pg (25.0-35.0); MCHC 32.5 g/dL (31.0-37.0); MCV 100.9 fL (80.0-100.0); Mean Platelet Volume 7.8; Monocytes # (A) 0.1 k/uL (0-1.0); Monocytes % (A) 5 %; Neutrophils # (A) 1.8 k/uL (1.3-7.7); Neutrophils % (A) 69 %; Platelet Count 134 k/uL (150-450); RBC 3.58 m/uL (3.80-5.40); RDW 13.2 % (11.5-15.5); WBC 2.6 k/uL (3.8-10.6)
--- NOTE | 2020-05-28 08:47 | XR ---
EXAMINATION TYPE: XR chest 2V DATE OF EXAM: 05/28/2020 COMPARISON: NONE chest CT February 14, 2020 and older studies. HISTORY: shortness of breath. nausea. covid. History of ovarian cancer. TECHNIQUE: Frontal and lateral views of the chest are obtained. FINDINGS: The cardiac silhouette size is stable and within normal limits. The osseous structures a re intact. Stable right internal jugular Mediport catheter. Background chronic parenchymal changes wi th new peripheral and bibasilar opacities bilaterally. No pleural effusion or pneumothorax seen bilat erally. IMPRESSION: Chronic changes with new bilateral peripheral and basilar opacities consistent with susp ected covid-19 infection.
[2020-05-28 09:11] LABS: D-Dimer 0.5 mg/L FEU (<0.60); INR 0.9 (<1.2); Partial Thromboplastin Time 29.4 sec (22.0-30.0); Prothrombin Time 9.8 sec (9.0-12.0)
[2020-05-28 09:53] LABS: Albumin 3.7 g/dL (3.5-5.0); C Reactive Protein 45.7 mg/L (<10.0); Calcium 9.6 mg/dL (8.4-10.2); Magnesium 1.9 mg/dL (1.6-2.3); Total Bilirubin 1.2 mg/dL (0.2-1.3); Total Protein 6.8 g/dL (6.3-8.2)
[2020-05-28 10:14] LABS: Potassium 4.5 mmol/L (3.5-5.1)
[2020-05-28] MEDS ORDERED: ACETAMINOPHEN TAB 500 MG TAB PO PRN (10:18)
[2020-05-28] MEDS: dexAMETHasone 2 MG TAB PO SCH (10:42)
[2020-05-28] MEDS: ALBUTEROL HFA INHALER INHALATION PRN ×2 (14:08→19:55)
--- NOTE | 2020-05-28 14:52 | CONS ---
CONSULTATION PULMONARY/CRITICAL CARE CONSULTATION: DATE OF SERVICE: 05/28/2020 REASON FOR CONSULTATION: COVID infection. A 79-year-old female who presented to the emergency department with complaints of generalized weakness. She apparently tested positive for COVID maybe 10 days ago or so. The patient states that since that time, she has been having difficulty breathing. She has been having difficulty taking her medications. She has had shortness of breath, nausea and vomiting. Anyway, the patient came in to be evaluated. She was seen in the emergency room, is being admitted for COVID infection and COVID pneumonitis. The patient also describes on and off fever and chills as well as severe body aches and muscle aches. Her primary care physician is Dr. Sharp. HOME MEDICATIONS: Reviewed. She is on Lipitor, Prozac, Ventolin, Anoro, and vitamin D3. ALLERGIES: Include CARBOPLATIN, CODEINE, SULFA ANTIBIOTICS, ATIVAN, ZOFRAN, COMPAZINE, and IVP DYE. MEDICAL HISTORY: Reviewed. She apparently has a history of COPD, ovarian cancer, CVA, hyperlipidemia, and osteoarthritis. She was diagnosed with ovarian cancer back in 2007. She had surgery. She has also had chemo a couple times including most recently in July 2015. Other medical history includes CVA/TIA, migraine cephalgia, diverticular disease, and pruritus. SURGICAL HISTORY: Includes hysterectomy and bladder surgery. She has also had colonoscopy, bladder suspension, hemorrhoidectomy, nasal surgery, and ovarian cystectomy. SOCIAL HISTORY: Positive for previous tobacco use. She denies any alcohol or illicit drug use. FAMILY HISTORY: Positive for father with lymphoma and mother with a history of skin cancer. REVIEW OF SYSTEMS: CONSTITUTIONAL: Fever, chills, muscle aches, joint aches. NEUROLOGIC: Negative. HEENT: Negative. CARDIOVASCULAR: Negative. PULMONARY: Shortness of breath, chest congestion, cough. GI: Nausea, vomiting. : Negative. RHEUMATOLOGIC: Negative. IMMUNOLOGIC: Negative. ENDOCRINOLOGIC: Negative. DERMATOLOGIC: Negative. Current vital signs are reviewed, temperature is 98.2, heart rate 84, respiratory rate 18, blood pressure 132/88 mean 102, room air saturation 94%. T-max is 99 degrees. She appears in no acute distress. She does appear to be uncomfortable. HEENT: Examination is grossly unremarkable. No nasal O2 noted. NECK: Supple, full range of motion. No adenopathy. Neck veins are flat. CARDIOVASCULAR: Examination reveals regular rhythm and rate. Heart rate 84. S1, S2 normal. No S3, S4, or murmur. LUNGS: Reveal a few scattered coarse rhonchi. No wheezes. No crackles. Breath sounds equal. ABDOMEN: Soft. EXTREMITIES: Intact. No cyanosis, clubbing, or edema. SKIN: Without rash. NEUROLOGIC: Examination is nonfocal. LABS: Reviewed. White count 2.6, hemoglobin 11.7, hematocrit 36.1, platelet count 134,000. PT, INR, PTT normal. D-dimer normal. Electrolytes all normal. Alkaline phosphatase 146, LDH 1081. C-reactive protein 45.7. Glucose 111. A chest x-ray done today shows some bilateral peripheral and basilar opacities consistent with COVID-19 infection. Medications are reviewed. She is on Tylenol, albuterol inhaler, vitamin C, Lipitor, vitamin D3, Decadron, Lovenox, Prozac, and zinc sulfate. ASSESSMENT: 1. COVID-19 pneumonitis with mild hypoxemic respiratory failure. 2. History of underlying COPD from previous tobacco use. 3. History of ovarian carcinoma, status post hysterectomy as well as chemotherapy, the last time in 2016. 4. History of diverticular disease. 5. History of cerebrovascular accident. 6. Hyperlipidemia. 7. Degenerative joint disease. 8. History of pruritus. PLAN: The patient will be on usual medications. She tested positive maybe 10 days ago. I do not think she would be a good candidate at this time for Remdesivir. Will continue with Decadron, vitamin C, vitamin D3, zinc. In addition, we have added albuterol inhaler. I will also add Symbicort 160/4.5 two puffs twice a day. Additional recommendations and suggestions are forthcoming. Will continue to follow closely. Repeat x-ray in a couple days and inflammatory markers in a couple days. No additional recommendations are made at this time. MMODL / IJN: [id number] /
[2020-05-28 15:24] LABS: Ferritin 552.2 ng/mL (10.0-291.0)
[2020-05-28] MEDS: SYMBICORT 160-4.5 MCG INHALER INHALATION SCH (19:56)
[2020-05-28] MEDS: ATORVASTATIN 10 MG TAB PO SCH (21:03)
[2020-05-29] MEDS: ASCORBIC ACID 500 MG TAB PO SCH (08:34)
[2020-05-29] MEDS: ENOXAPARIN 40 MG/0.4 ML SYRINGE SQ SCH (08:34)
[2020-05-29] MEDS: dexAMETHasone 2 MG TAB PO SCH (08:34)
[2020-05-29] MEDS: ZINC SULFATE 220 MG CAP PO SCH (08:34)
[2020-05-29] MEDS: CHOLECALCIFEROL 400 UNIT TAB PO SCH (08:34)
[2020-05-29] MEDS: FLUoxetine HCL 10 MG CAP PO SCH (08:34)
[2020-05-29] MEDS: ALBUTEROL HFA INHALER INHALATION PRN ×3 (09:30→19:45)
[2020-05-29] MEDS: SYMBICORT 160-4.5 MCG INHALER INHALATION SCH ×2 (09:30→19:45)
[2020-05-29 14:14] VITALS: BMI 25.8
--- NOTE | 2020-05-29 14:37 | P.PN ---
Subjective Progress Note Date: 05/29/20 Principal diagnosis: Acute CoVID 19 pneumonitis The patient is seen today 05/29/2020 in follow-up on the regular medical floor. She is being treated for acute CoVID 19 pneumonitis. She is presently awake and alert in no acute distress. She is feeling a bit better today compared to yesterday. Currently maintaining good O2 saturations in the 90s on 2 L/m per nasal cannula. She's afebrile. Hemodynamically stable. Remains on dexamethasone and Lovenox along with vitamin C, vitamin D, zinc. She was outside the window for Remdesivir. Objective - Vital Signs Vital signs: Vital Signs Temp 97.8 F 05/29/20 08:00 Pulse 72 05/29/20 08:00 Resp 18 05/29/20 08:00 BP 100/61 05/29/20 08:00 Pulse Ox 98 05/29/20 08:10 Intake & Output 05/28/20 05/29/20 05/29/20 18:59 06:59 18:59 Intake Total 350 Balance 350 Weight 72.575 kg 72.575 kg Intake: Oral 350 Other: Voiding Method Toilet # Voids 1 2 - Exam GENERAL EXAM: Alert, pleasant 79-year-old female patient, on 2 L nasal cannula comfortable in no apparent distress. HEAD: Normocephalic. EYES: Normal reaction of pupils, equal size. NOSE: Clear with pink turbinates. THROAT: No erythema or exudates. NECK: No masses, no JVD. CHEST: No chest wall deformity. LUNGS: Equal air entry with few scattered rhonchi CVS: S1 and S2 normal with no audible murmur, regular rhythm. ABDOMEN: No hepatosplenomegaly, normal bowel sounds, no guarding or rigidity. SPINE: No scoliosis or deformity SKIN: No rashes CENTRAL NERVOUS SYSTEM: No focal deficits, tone is normal in all 4 extremities. EXTREMITIES: There is no peripheral edema. No clubbing, no cyanosis. Peripheral pulses are intact. - Labs CBC & Chem 7: 05/28/20 07:51 05/28/20 07:51 Labs: Abnormal Lab Results - Last 24 Hours (Table) 05/28/20 05/28/20 Range/Units 07:51 07:51 Ferritin 552.2 H (10.0-291.0) ng/mL Procalcitonin 0.15 H (0.02-0.09) ng/mL Assessment and Plan Assessment: 1 Acute hypoxic respiratory failure secondary to CoVID 19 pneumonitis, outside of the window for Remdesivir 2 Acute exacerbation of chronic obstructive pulmonary disease secondary to above 3 History of chronic tobacco dependence 4 History of ovarian carcinoma, status post surgery/chemotherapy in 2016 5 History of diverticular disease 6 History of CVA 7 Hyperlipidemia 8 Degenerative joint disease Plan: The patient was seen and evaluated by Dr. Kirby She is currently stable from the pulmonary standpoint Continue the current treatment plan Wean off the oxygen Repeat chest x-ray and inflammatory markers in a.m. We'll continue to follow I, the cosigning physician, performed a history & physical examination of the patient. Lungs sounds with few scattered rhonchi. Maintaining good O2 saturations in the 90s on 2 L/m per nasal cannula. I discussed the assessment and plan of care with my nurse practitioner, Miesha Santiago. I attest to the above note as dictated by her.
[2020-05-29] MEDS ORDERED: ALPRAZolam 0.25 MG TAB PO PRN (15:10)
[2020-05-29] MEDS: ATORVASTATIN 10 MG TAB PO SCH (21:11)
--- NOTE | 2020-05-29 23:01 | P.HPIM ---
History of Present Illness H&P Date: 05/29/20 Chief Complaint: Short of breath History of presenting complaint: This is a pleasant 79-year-old patient of Dr. Sharp. Chronic stable medical conditions include diagnosis of uterine cancer with recurrence patient's had surgery chemotherapy last chemotherapy being about 2 months ago. Is currently in remission. Other stable medical conditions include hyperlipidemia, osteo arthritis, diverticulosis, low back pain. [facility] Patient been having a slight cough. Short of breath as been progressive. Chills. Decreased appetite no loss of smell or taste. Decided to come in. Review of systems: GEN.: Tired decreased appetite EYES: None HEENT: None NECK: None RESPIRATORY: As above CARDIOVASCULAR: None GASTROINTESTINAL: None GENITOURINARY: None MUSCULOSKELETAL: Joint pains LYMPHATICS: None HEMATOLOGICAL: None PSYCHIATRY: None NEUROLOGICAL: None Past medical history to include: COPD, TIA, hyperlipidemia, osteoarthritis, ovarian cancer treated with surgery chemotherapy last week 2 months ago currently in remission, TIA 2, migraines, chronic diverticulosis, Social history: This is the friend called. Patient smoked for 50 years stopped in 2007. No alcohol. Physical examination: VITAL SIGNS: 99, 82, 18, 122/90, 96% on room air GENERAL: BMI 25.8, sitting in bed, bit tired. EYES: Pupils equal. Conjunctiva normal. HEENT: External appearance of nose and ears normal, oral cavity grossly normal. NECK: JVD not raised; masses not palpable. HEART: First and second heart sounds are normal; no edema. LUNGS: Respiratory rate increased, decreased breath sounds. ABDOMEN: Soft, nontender, liver spleen not palpable, no masses palpable. PSYCH: Alert and oriented x3; mood and affect anxiousl. NEUROLOGICAL: Cranial nerves grossly intact; no facial asymmetry, power and s ensation grossly intact. LYMPHATICS: No lymph nodes palpable in the axilla and neck INVESTIGATIONS, reviewed in the clinical context: White count 2.6 hemoglobin 11.7 platelets 134 decreased lymphocytes at 0.5 d- dimer 0.5 potassium 4.5 creatinine 0.86 Ferritin 552 LDH 1081 CRP 45.7 pro-calcitonin 0.15 EKG tracing personally reviewed by me-normal sinus rhythm Chest x-ray film personally reviewed by me-scattered infiltrates Assessment: -Bilateral COVID 19 pneumonia relatively mild, clinically. Be noted that patient is immunosuppressed -COPD in an ex-smoker -Hyperlipidemia -Primary osteoarthritis -History of ovarian cancer treated with recurrences with surgery chemotherapy lasting being 2 months ago under remission. -Chronic diverticulosis -Anxiety depression otherwise specified Plan: Home medications resumed. Patient is put on dexamethasone subcu Lovenox. Pulmonary was consulted. Endocrine issues incentive spirometry. Ambulate. Follow Past Medical History Past Medical History: Cancer, COPD, CVA/TIA, Hyperlipidemia, Osteoarthritis (OA), Pneumonia Additional Past Medical History / Comment(s): Pt states she was diagnosed with covid on 05/21/20 thru [facility] [place]. 2007 ovarian cancer with reoccurrances/surgeries/chemo with last chemo 2 months ago, bronchitis, TIA x2, past migraines, diverticular disease, occasional low back pain, uti, PT STATES SHE IS VERY SENSITIVE TO MEDICATIONS/ANESTHESIA. History of Any Multi-Drug Resistant Organisms: None Reported Past Surgical History: Bladder Surgery, Hysterectomy Additional Past Surgical History / Comment(s): 2007 ovarian mass removed, 2014 pelvic surgery for reoccurrance of cancer, hysterectomy years prior d/t heavy menses, ovarian cyst removed, R side port, bladder suspension, colonoscopies, hemorrhoidectomy, L lower eyelid surgery, nasal repair. Past Anesthesia/Blood Transfusion Reactions: Previous Problems w/ Anesthesia, Postoperative Nausea & Vomiting (PONV) Additional Past Anesthesia/Blood Transfusion Reaction / Comment(s): STATES DIFFICULTY WAKING UP Smoking Status: Former smoker - Past Family History Father Family Medical History: Cancer Additional Family Medical History / Comment(s): Father had lymphoma. Mother Family Medical History: Cancer Additional Family Medical History / Comment(s): Mother had skin cancer on her nose. Medications and Allergies Home Medications Medication Instructions Recorded Confirmed Type Atorvastatin [Lipitor] 10 mg PO HS 08/25/17 05/28/20 History FLUoxetine HCL [PROzac] 10 mg PO DAILY 10/18/17 05/28/20 History Albuterol Inhaler [Ventolin Hfa 1 - 2 puff INHALATION RT-Q6H PRN 05/14/20 05/28/20 History Inhaler] Umeclidinium Brm/Vilanterol Tr 1 puff INHALATION RT-DAILY 05/14/20 05/28/20 History [Anoro Ellipta 62.5-25 Mcg INH] Cholecalciferol [Vitamin D3 (25 1,000 unit PO DAILY 05/28/20 05/28/20 History Mcg = 1000 Iu)] Allergies Allergy/AdvReac Type Severity Reaction Status Date / Time carboplatin AdvReac Severe HEART Verified 05/28/20 08:39 PROBLEMS, BLACKED OUT. codeine AdvReac Severe SEVERE Verified 05/28/20 08:39 HEADACHE Sulfa (Sulfonamide AdvReac Severe SEVERE Verified 05/28/20 08:39 Antibiotics) HEADACHE lorazepam [From Ativan] AdvReac Unknown VERY Verified 05/28/20 08:39 DROWSY - SLEPT 12 HOURS ondansetron AdvReac Unknown SWELLING Verified 05/28/20 08:39 [From Zofran (as OF TONGUE, hydrochloride)] UNABLE TO TALK prochlorperazine AdvReac Unknown CONFUSED- Verified 05/28/20 08:39 [From Compazine] FELT DRUGGED UP. Iodinated Contrast Media AdvReac Confusion Verified 05/28/20 08:39 [Iodinated Contrast Media - IV Dye] Physical Exam Vitals: Vital Signs Temp Pulse Pulse Resp BP BP Pulse Ox 05/29/20 08:10 98 05/29/20 08:00 97.8 F 72 18 100/61 100 05/29/20 07:18 100 05/29/20 02:00 97.5 F L 69 18 108/63 96 05/28/20 20:00 97.7 F 66 18 123/74 98 05/28/20 18:14 97.8 F 68 16 113/67 98 05/28/20 14:10 97.9 F 72 135/63 97 05/28/20 13:00 97.8 F 80 18 136/59 96 05/28/20 11:00 98.2 F 84 18 132/88 94 L Intake and Output 05/28/20 05/29/20 05/29/20 22:59 06:59 14:59 Intake Total 350 Balance 350 Intake: Oral 350 Other: # Voids 1 2 Weight 72.575 kg Results CBC & Chem 7: 05/28/20 07:51 05/28/20 07:51 Labs: Abnormal Lab Results - Last 24 Hours (Table) 05/28/20 05/28/20 Range/Units 07:51 07:51 Sodium 135 L (137-145) mmol/L Glucose 111 H (74-99) mg/dL Ferritin 552.2 H (10.0-291.0) ng/mL AST 37 H (14-36) U/L Alkaline Phosphatase 146 H (38-126) U/L Lactate Dehydrogenase 1081 H (313-618) U/L C-Reactive Protein 45.7 H (<10.0) mg/L Procalcitonin 0.15 H (0.02-0.09) ng/mL Thrombosis Risk Factor Assmnt - Choose All That Apply Any of the Below Risk Factors Present?: Yes Each Factor Represents 1 point: Abnormal pulmonary function (COPD), Serious lung disease incl. pneumonia (< 1month) Other Risk Factors: Yes Each Risk Factor Represents 2 Points: Malignancy Each Risk Factor Represents 3 Points: Age 75 years or older Other congenital or acquired thrombophilia - If yes, enter type in comment: No Thrombosis Risk Factor Assessment Total Risk Factor Score: 7 Thrombosis Risk Factor Assessment Level: High Risk
[2020-05-30 05:46] VITALS: RESP 18
[2020-05-30] MEDS: ALBUTEROL HFA INHALER INHALATION PRN ×2 (08:13→16:06)
[2020-05-30] MEDS: SYMBICORT 160-4.5 MCG INHALER INHALATION SCH (08:13)
[2020-05-30] MEDS: dexAMETHasone 2 MG TAB PO SCH (08:59)
[2020-05-30] MEDS: ASCORBIC ACID 500 MG TAB PO SCH (08:59)
[2020-05-30] MEDS: ENOXAPARIN 40 MG/0.4 ML SYRINGE SQ SCH (08:59)
[2020-05-30] MEDS: FLUoxetine HCL 10 MG CAP PO SCH (08:59)
[2020-05-30] MEDS: CHOLECALCIFEROL 400 UNIT TAB PO SCH (08:59)
[2020-05-30] MEDS: ZINC SULFATE 220 MG CAP PO SCH (08:59)
[2020-05-30 11:10] VITALS: BP 116/67; PULSE 70; TEMP 97.4
--- NOTE | 2020-05-30 14:44 | P.PN ---
Subjective Progress Note Date: 05/30/20 Principal diagnosis: Acute CoVID 19 pneumonitis The patient is seen today 05/29/2020 in follow-up on the regular medical floor. She is being treated for acute CoVID 19 pneumonitis. She is presently awake and alert in no acute distress. She is feeling a bit better today compared to yesterday. Currently maintaining good O2 saturations in the 90s on 2 L/m per nasal cannula. She's afebrile. Hemodynamically stable. Remains on dexamethasone and Lovenox along with vitamin C, vitamin D, zinc. She was outside the window for Remdesivir. The patient is seen today 05/30/2020 in follow-up on the regular medical floor. She is resting comfortably in bed. Awake and alert in no acute distress. She is on room air. Maintaining O2 saturations in the 90s. Her only complaint is that of generalized weakness. She was outside the window to receive Remdesivir. She is continued on Lovenox, Decadron, vitamin supplement. She remains on Symbicort and Ventolin. Objective - Vital Signs Vital signs: Vital Signs Temp 97.4 F L 05/30/20 10:32 Pulse 70 05/30/20 10:32 Resp 18 05/30/20 10:32 BP 116/67 05/30/20 10:32 Pulse Ox 96 05/30/20 10:32 Intake & Output 05/29/20 05/30/20 05/30/20 18:59 06:59 18:59 Intake Total 500 Balance 500 Weight 72.575 kg Intake: Oral 500 Other: Voiding Method Toilet # Voids 2 3 - Exam GENERAL EXAM: Alert, pleasant 79-year-old female patient, on room air, comfortable in no apparent distress. HEAD: Normocephalic. EYES: Normal reaction of pupils, equal size. NOSE: Clear with pink turbinates. THROAT: No erythema or exudates. NECK: No masses, no JVD. CHEST: No chest wall deformity. LUNGS: Equal air entry with few scattered rhonchi CVS: S1 and S2 normal with no audible murmur, regular rhythm. ABDOMEN: No hepatosplenomegaly, normal bowel sounds, no guarding or rigidity. SPINE: No scoliosis or deformity SKIN: No rashes CENTRAL NERVOUS SYSTEM: No focal deficits, tone is normal in all 4 extremities. EXTREMITIES: There is no peripheral edema. No clubbing, no cyanosis. Periphera l pulses are intact. - Labs CBC & Chem 7: 05/28/20 07:51 05/28/20 07:51 Assessment and Plan Assessment: 1 Acute hypoxic respiratory failure secondary to CoVID 19 pneumonitis, outside of the window for Remdesivir 2 Acute exacerbation of chronic obstructive pulmonary disease secondary to above 3 History of chronic tobacco dependence 4 History of ovarian carcinoma, status post surgery/chemotherapy in 2016 5 History of diverticular disease 6 History of CVA 7 Hyperlipidemia 8 Degenerative joint disease Plan: The patient was seen and evaluated by Dr. Kirby Cleared for discharge from the pulmonary standpoint Follow up closely with her PCP I, the cosigning physician, performed a history & physical examination of the patient. Lungs sounds with few scattered rhonchi. Maintaining good O2 saturations in the 90s on room air. I discussed the assessment and plan of care with my nurse practitioner, Miesha Santiago. I attest to the above note as dictated by her.
--- NOTE | 2020-05-30 22:22 | P.DS ---
Providers Date of admission: 05/28/20 10:26 Expected date of discharge: 05/30/20 Attending physician: Gorge Stubbs Consults: 05/28/20 10:21 Consult Physician Routine Consulting Provider: Boris Kirby Reason/Comments: covid Do you want consulting provider notified?: Yes Primary care physician: Dane Sharp [facility] Course: Chief Complaint: Short of breath History of presenting complaint: This is a pleasant 79-year-old patient of Dr. Sharp. Chronic stable medical conditions include diagnosis of uterine cancer with recurrence patient's had surgery chemotherapy last chemotherapy being about 2 months ago. Is currently in remission. Other stable medical conditions include hyperlipidemia, osteoarthritis, diverticulosis, low back pain. Patient was diagnosed with COVID on April 2004 [facility]. Patient been having a slight cough. Short of breath as been progressive. Chills. Decreased appetite no loss of smell or taste. Decided to come in. Admitted with mild COVID 19 pneumonia. Today-doing really well. Pulse ox is 96% on room air. No fever. D-dimer is 0.44, CRP is 4.1. Discussed with patient. We'll discharge the patient on dexamethasone. Rather have the patient safe at home. As she is only on oral medications. Cleared by Dr. Kirby from pulmonary. Discussion and discharge planning more than 35 minutes Consultation: Dr. Kirby from pulmonary Physical examination: VITAL SIGNS: 97.4, 70, 18, 116/67, 96% room air GENERAL: BMI 25.8, laying in bed, comfortable NECK: JVD not raised; masses not palpable. HEART: First and second heart sounds are normal; no edema. LUNGS: Respiratory rate normal, decreased breath sounds. ABDOMEN: Soft, nontender, liver spleen not palpable, no masses palpable. PSYCH: Alert and oriented x3; mood and affect anxious. INVESTIGATIONS, reviewed in the clinical context: May 30: D-dimer 0.44 CRP 4.1 pro-calcitonin 0.14 White count 2.6 hemoglobin 11.7 platelets 134 decreased lymphocytes at 0.5 d- dimer 0.5 potassium 4.5 creatinine 0.86 Ferritin 552 LDH 1081 CRP 45.7 pro-calcitonin 0.15 EKG tracing personally reviewed by me-normal sinus rhythm Chest x-ray film personally reviewed by me-scattered infiltrates Assessment: -Bilateral COVID 19 pneumonia relatively mild, clinically. Stable -COPD in an ex-smoker -Hyperlipidemia -Primary osteoarthritis -History of ovarian cancer treated with recurrences with surgery chemotherapy lasting being 2 months ago under remission. -Chronic diverticulosis -Anxiety depression otherwise specified Disposition: Home Patient Condition at Discharge: Stable Plan - Discharge Summary Discharge Rx Participant: No New Discharge Prescriptions: New dexAMETHasone [Hexadrol] 6 mg PO DAILY #24 tab Zinc Sulfate [Orazinc] 220 mg PO DAILY #30 cap Ascorbic Acid [Vitamin C] 500 mg PO DAILY #30 tab Continue Atorvastatin [Lipitor] 10 mg PO HS FLUoxetine HCL [PROzac] 10 mg PO DAILY Umeclidinium Brm/Vilanterol Tr [Anoro Ellipta 62.5-25 Mcg INH] 1 puff INHALATION RT-DAILY Albuterol Inhaler [Ventolin Hfa Inhaler] 1 - 2 puff INHALATION RT-Q6H PRN PRN Reason: Shortness Of Breath Cholecalciferol [Vitamin D3 (25 Mcg = 1000 Iu)] 1,000 unit PO DAILY Discharge Medication List Atorvastatin [Lipitor] 10 mg PO HS 08/25/17 [History] FLUoxetine HCL [PROzac] 10 mg PO DAILY 10/18/17 [History] Albuterol Inhaler [Ventolin Hfa Inhaler] 1 - 2 puff INHALATION RT-Q6H PRN 05/14/20 [History] Umeclidinium Brm/Vilanterol Tr [Anoro Ellipta 62.5-25 Mcg INH] 1 puff INHALATION RT-DAILY 05/14/20 [History] Cholecalciferol [Vitamin D3 (25 Mcg = 1000 Iu)] 1,000 unit PO DAILY 05/28/20 [History] Ascorbic Acid [Vitamin C] 500 mg PO DAILY #30 tab 05/30/20 [Rx] Zinc Sulfate [Orazinc] 220 mg PO DAILY #30 cap 05/30/20 [Rx] dexAMETHasone [Hexadrol] 6 mg PO DAILY #24 tab 05/30/20 [Rx] Follow up Appointment(s)/Referral(s): Dane Sharp MD [Primary Care Provider] - 06/11/20 11:20 am [facility], [NON-STAFF] - 1 Week Veronique Denis MD [STAFF PHYSICIAN] - 06/11/20 3:30 pm () Patient Instructions/Handouts: Zinc Sulfate (By mouth), Ascorbic Acid (By mouth), Dexamethasone (By mouth), Viral Pneumonia (DC), Hypoxia (GEN) Discharge Disposition: HOME WITH HOME HEALTH SERVICES
== END 2020-05-30 16:05 | disposition home health service (06) | DRG 177 ==
LOC: EC 06:53 → 6NMEDSUR 10:26
PROVIDERS: ADMIT Hospitalist; ATTEND Hospitalist
DX: U07.1 COVID-19 (principal); J96.01 Acute respiratory failure with hypoxia; J12.89 Other viral pneumonia; J44.1 Chronic obstructive pulmonary disease with (acute) exacerbation; J44.0 Chronic obstructive pulmonary disease with (acute) lower respiratory infection; D84.9 Immunodeficiency, unspecified; C56.9 Malignant neoplasm of unspecified ovary; E78.5 Hyperlipidemia, unspecified; F41.8 Other specified anxiety disorders; F32.9 Major depressive disorder, single episode, unspecified; M19.91 Primary osteoarthritis, unspecified site; K57.90 Diverticulosis of intestine, part unspecified, without perforation or abscess without bleeding; Z92.21 Personal history of antineoplastic chemotherapy; Z79.899 Other long term (current) drug therapy; Z80.7 Family history of other malignant neoplasms of lymphoid, hematopoietic and related tissues; Z85.42 Personal history of malignant neoplasm of other parts of uterus; Z86.73 Personal history of transient ischemic attack (TIA), and cerebral infarction without residual deficits; Z87.891 Personal history of nicotine dependence; Z90.710 Acquired absence of both cervix and uterus; Z87.440 Personal history of urinary (tract) infections; M54.5 Low back pain; Z88.5 Allergy status to narcotic agent; Z88.2 Allergy status to sulfonamides; Z91.041 Radiographic dye allergy status
CPT/HCPCS: 36415; 71046; 80053; 82728; 83605; 83615; 83735; 84145; 85025; 85379; 85610; 85730; 86140; 93005; 94640; 96360; 99285

== ENCOUNTER → 2020-06-11 | Outpatient (CLI) | payer MEDICARE ==
--- NOTE | 2020-06-11 14:20 | XR ---
EXAMINATION TYPE: XR chest 2V DATE OF EXAM: 06/11/2020 COMPARISON: Chest x-ray [address] February 14, 2020. HISTORY: Pneumonia and covid 19 infection. History of ovarian cancer. TECHNIQUE: Frontal and lateral views of the chest are obtained. FINDINGS: The cardiac silhouette size remains stable and within normal limits. The osseous structu res redemonstrates slight scoliotic curvature. Stable right internal jugular Mediport catheter. Backg round chronic parenchymal changes with persistent mid lung peripheral and bibasilar opacities bilater ally. No new infiltrates are present. No pleural effusion or pneumothorax seen bilaterally. IMPRESSION: Chronic changes with persistent bilateral peripheral and basilar opacities could reflect areas of residual acute infiltrate or postinflammatory scarring. No new infiltrates are present.
== END | disposition home or self-care (01) ==
LOC: RADXRMAIN 13:48
PROVIDERS: ATTEND Family Medicine
DX: J98.4 Other disorders of lung (principal); R91.8 Other nonspecific abnormal finding of lung field
CPT/HCPCS: 71046

== ENCOUNTER → 2020-08-28 | Outpatient (CLI) | payer MEDICARE ==
--- NOTE | 2020-08-28 14:26 | CT ---
EXAMINATION TYPE: CT ChestAbdPelvis w con DATE OF EXAM: 08/28/2020 INDICATION: Ovarian cancer COMPARISON: 02/14/2020 CT DLP: 1028.70 mGycm CONTRAST: Performed with Oral Contrast and with IV Contrast, patient injected with 100 ml mL of Isovue 300. TECHNIQUE: Axial images at 5 mm thick sections. Reconstructed images in the coronal plane. Delayed images through the kidneys. FINDINGS: CT CHEST: Portion of the thyroid visualized is normal. There is some stable apical thickening bilaterally. Very minimal compressive atelectasis may be prese nt. No enlarged mediastinal or hilar adenopathy is evident. The ascending aorta diameter at the level of the main pulmonary artery is 3.3 cm. The main pulmonary artery diameter at the bifurcation is 2.[address] ABDOMEN: Liver: Mild fatty infiltration liver. Spleen: Normal Pancreas: Normal Adrenal glands: The adrenal glands are normal. Gallbladder: Normal Kidneys: No masses are evident. No hydronephrosis is present. There is a 3.2 cm cyst measuring 9 Ho unsfield units in the superior posterior right upper pole. Delayed images were obtained through the kidneys, which remain unremarkable. Aorta: Vascular calcification is within the aorta. Inferior vena cava: Normal. CT PELVIS: Loops of bowel within the abdomen and pelvis are normal. There are loops of bowel which are incom pletely distended or lack oral contrast limiting their evaluation. Appendix: Normal as visualized. Urinary bladder: Normal. Genitourinary structures: Uterus and ovaries are not identified. Osseous structures: No suspicious lytic or sclerotic lesions are evident. ABDOMEN: No suspicious adenopathy is evident. No omental caking is evident. No abnormal fluid collect ions are evident. IMPRESSIONS: 1. No suspicious findings to suggest metastatic or recurrent ovarian cancer.
== END ==
LOC: RADCTMAIN 10:19
PROVIDERS: ATTEND Internal Medicine Hematology & Oncology
DX: Z03.89 Encounter for observation for other suspected diseases and conditions ruled out (principal); C56.9 Malignant neoplasm of unspecified ovary
CPT/HCPCS: 71260; 74177; Q9967

== ENCOUNTER → 2020-10-25 | Outpatient (CLI) | payer MEDICARE ==
--- NOTE | 2020-10-25 14:48 | CT ---
EXAMINATION TYPE: CT ChestAbdPelvis w con DATE OF EXAM: 10/25/2020 COMPARISON: 08/28/2020 HISTORY: follow up ovarian cancer, increase ca-125 CT DLP: 1210.6 mGycm Automated exposure control for dose reduction was used. CONTRAST: CT scan of the chest, abdomen and pelvis is performed with Oral Contrast and with IV Contrast, patien t injected with 100 mL of Isovue 300. FINDINGS: LUNGS: The lungs are grossly clear, there is no concerning parenchymal mass or nodule identified. T here is no pleural effusion or pneumothorax seen. The tracheobronchial tree is patent. Stable apical pleural thickening. Subsegmental consolidation posteriorly most typical of atelectasis. No sizable p leural effusion. The degree of underlying COPD questioned. MEDIASTINUM: There are no greater than 1 cm hilar or mediastinal lymph nodes. No pericardial effusi on is seen. Atherosclerotic change of the aorta. OTHER: No additional significant abnormality is seen. LIVER/GB: Low attenuation throughout the liver suggestive of fatty infiltration. No intrahepatic lesi on. PANCREAS: No significant abnormality is seen. SPLEEN: No significant abnormality is seen. ADRENALS: No significant abnormality is seen. KIDNEYS: Stable simple cyst measuring 3.2 cm upper pole right kidney.. BOWEL: No significant abnormality is seen. LYMPH NODES: No greater than 1 cm abdominal or pelvic lymph nodes are appreciated. OSSEOUS STRUCTURES: No significant abnormality is seen. OTHER: Hypertrophic and degenerative changes of the spine. There is nodular thickening to the right v aginal cuff measuring 1.4 cm. Not definitively seen on the prior exam. Atherosclerotic change of the aorta. No free fluid. There is no omental thickening. No abnormal soft tissue attenuation within the peritoneum. Post hysterectomy and oophorectomy changes suspected. IMPRESSION: 1. There is a 1.4 cm right hemipelvic nodule nodule appears to be associated with the right vaginal c uff. Not definitively seen on prior exam. Recommend a pelvic ultrasound for further evaluation. 2. No evidence of omental or peritoneal thickening or nodularity. No pleural effusion. Liver demonstr ates changes of hepatic steatosis but no focal mass.
== END | disposition home or self-care (01) ==
LOC: RADCTMAIN 13:10
PROVIDERS: ATTEND Internal Medicine Hematology & Oncology
DX: C56.9 Malignant neoplasm of unspecified ovary (principal); K76.0 Fatty (change of) liver, not elsewhere classified
CPT/HCPCS: 71260; 74177; Q9967

== ENCOUNTER → 2020-11-01 | Outpatient (CLI) | payer MEDICARE ==
--- NOTE | 2020-11-05 17:48 | PE ---
EXAMINATION TYPE: PET CT fusion skull to thigh DATE OF EXAM: 11/01/2020 COMPARISON: CT chest abdomen pelvis 10/25/2020 Prior PET/CT: None HISTORY: Ovarian cancer TECHNIQUE: Following the intravenous administration of 10.16 mCi of F-18 FDG, whole body images are performed from the skull base to the midthigh. Images are reviewed on the computer in the coronal, a xial, and sagittal planes. Reconstructed rotating images are created on independent workstation and reviewed on the computer. A localization and attenuation correction CT is performed in conjunction with the PET scan. DLP: 428.56 mGycm SCAN: Initial Blood glucose: 89 mg/dL Average Mediastinum SUV: 1.76 Average Liver SUV: 2.3 FINDINGS: NECK: No abnormal uptake THORAX: No abnormal uptake ABDOMEN: No abnormal uptake PELVIS: There is a focus of radiotracer accumulation within the anterior presacral space left of midl ine. Image 196. SUV value of 3.72 There is a focus of radiotracer accumulation right of the rectosigmoid junction region, image 213, MARINO V value of 4.7 There is some radiotracer which may be a urinary bladder diverticulum. A mass separate from the urina ry bladder may be present on the localization CT images. Image 216, SUV value 3.42 OSSEOUS STRUCTURES: No suspicious radiotracer accumulation LOCALIZATION CT: Note is made of a right renal cyst. COMPARISON: No suspicious new lesions. IMPRESSION: 1. There are couple of hyperintense foci within the lower pelvis. Metastatic disease is not excluded. 2. Abnormal uptake outside the pelvis is not identified.
== END | disposition home or self-care (01) ==
LOC: RADPETMAIN 13:54
PROVIDERS: ATTEND Radiology Radiation Oncology
DX: C56.9 Malignant neoplasm of unspecified ovary (principal)
CPT/HCPCS: 78815; A9552

== ENCOUNTER → 2021-01-02 | Outpatient (CLI) | payer MEDICARE ==
--- NOTE | 2021-01-06 15:09 | MM ---
Reason for exam: screening (asymptomatic). Last mammogram was performed 1 year and 1 month ago. History: Patient is postmenopausal and has history of ovarian cancer at age 67. Family history of breast cancer in paternal aunt at age 50, breast cancer in maternal cousin, and breast cancer in maternal aunt at age 50. Excisional biopsy of the left breast, 1969. Took estrogen for 20 years beginning at age 45. Physical Findings: A clinical breast exam by your physician is recommended on an annual basis and results should be correlated with mammographic findings. MG 3D Screening Mammo W/Cad Bilateral CC and MLO view(s) were taken. Prior study comparison: November 22, 2019, bilateral MG 3d screening mammo w/cad. September 22, 2018, bilateral MG 3d screening mammo w/cad. There are scattered fibroglandular densities. There is chronic nodularity in the right breast. No significant changes when compared with prior studies. ASSESSMENT: Negative, BI-RAD 1 RECOMMENDATION: Routine screening mammogram of both breasts in 1 year.
== END | disposition home or self-care (01) ==
LOC: RADMAMWWP 08:13
PROVIDERS: ATTEND Obstetrics & Gynecology
DX: Z12.31 Encounter for screening mammogram for malignant neoplasm of breast (principal); Z80.3 Family history of malignant neoplasm of breast
CPT/HCPCS: 77063; 77067

== ENCOUNTER → 2021-01-21 | Outpatient (CLI) | payer MEDICARE ==
--- NOTE | 2021-01-22 15:20 | CT ---
EXAMINATION TYPE: CT abdomen chest pelvis wo/w con DATE OF EXAM: 01/21/2021 INDICATION: ovarian ca, obs for mets COMPARISON: 10/25/2020, PET scan 11/01/2020 CT DLP: 1419 mGycm CONTRAST: Performed with Oral Contrast and with IV Contrast, patient injected with 80 mL of Isovue 300. TECHNIQUE: Axial images at 5 mm thick sections. Reconstructed images in the coronal plane. Delayed images through the kidneys. FINDINGS: CT CHEST: Portion of the thyroid visualized is normal. There is some apical scarring present previously. Punctate nodules in the posterior right upper lung field. Series 4 image 22. This appears to be present previously. No suspicious masses are evident. No enlarged mediastinal or hilar adenopathy is evident. The ascending aorta diameter at the level of the main pulmonary artery is 3.6 cm. The main pulmonary artery diameter at the bifurcation is 2.8 cm. Coronary artery calcification is present. CT ABDOMEN: Liver: There is mild fatty infiltration of liver. No discrete masses are evident. Spleen: Normal Pancreas: Normal Adrenal glands: The adrenal glands are normal. Gallbladder: Normal Kidneys: No masses are evident. No hydronephrosis is present. There is a 3.1 cm cyst in the superio r pole right kidney. Delayed images were obtained through the kidneys, which remain unremarkable. Aorta: Vascular calcification is within the aorta. Inferior vena cava: Normal. CT PELVIS: No omental caking is evident. No peritoneal studding is identified. Previous soft tissue d ensity within the right hemipelvis is diminished from comparison. A previous cyst is not identified. Loops of bowel within the abdomen and pelvis are normal. There are loops of bowel which are incom pletely distended or lack oral contrast limiting their evaluation. Appendix: The appendix is visualized and unremarkable. Urinary bladder: Decompressed with some limited evaluation. Genitourinary structures: Not identified. No recurrent masses cysts or pelvic fluid is evident. Osseous structures: No suspicious lytic or sclerotic lesions. IMPRESSIONS: 1. No suspicious changes to suggest recurrent or metastatic ovarian carcinoma.
== END | disposition home or self-care (01) ==
LOC: RADPROMAIN 13:40
PROVIDERS: ATTEND Internal Medicine Hematology & Oncology
DX: Z03.89 Encounter for observation for other suspected diseases and conditions ruled out (principal); C56.9 Malignant neoplasm of unspecified ovary
CPT/HCPCS: 74178; J1642; Q9967

== ENCOUNTER → 2021-06-25 | Outpatient (CLI) | payer MEDICARE ==
--- NOTE | 2021-06-25 12:38 | XR ---
EXAMINATION TYPE: XR chest 2V DATE OF EXAM: 06/25/2021 COMPARISON: 06/11/2020 HISTORY: Shortness of breath TECHNIQUE: Frontal and lateral views of the chest are obtained. FINDINGS: Scattered senescent parenchymal changes noted. Hyperinflation compatible with COPD. No evidence for infiltrate. No evidence for atelectasis. Heart size is stable. Mediastinal structures are stable and grossly unremarkable. No evidence for hilar prominence. Degenerative changes dorsal spine. IMPRESSION: 1. No evidence for acute pulmonary disease.
[2021-06-25 19:15] LABS: Chol/HDL Ratio 2.55 Ratio; LDL Cholesterol,Calculated 70.2 mg/dL (0.0-131.0)
== END | disposition home or self-care (01) ==
LOC: LABWHC1 12:00
PROVIDERS: ATTEND Internal Medicine
DX: J01.90 Acute sinusitis, unspecified (principal); E78.5 Hyperlipidemia, unspecified
CPT/HCPCS: 36415; 71046; 80061

== ENCOUNTER → 2021-07-31 | Outpatient (CLI) | payer MEDICARE ==
--- NOTE | 2021-07-31 12:15 | CT ---
EXAMINATION TYPE: CT ChestAbdPelvis w con DATE OF EXAM: 07/31/2021 COMPARISON: Most recent whole body CT January 21, 2021 and older studies HISTORY: ovarian cancer, mets. Originally diagnosed 2007 with rising tumor markers. Radiation treatme nt ended October 25, 2020. Chemotherapy last in 2019. CT DLP: 1464.8 mGycm. Automated Exposure Control for Dose Reduction was Utilized. CONTRAST: CT scan of the thorax, abdomen and pelvis is performed with oral and with IV Contrast, patient inject ed with 80 mL of Isovue 300. FINDINGS: LUNGS: Dependent atelectasis bilateral lungs redemonstrated. No suspicious new greater than 5 mm pulm onary nodules or masses. No pleural effusion or pneumothorax seen bilaterally. MEDIASTINUM: There are no new greater than 1 cm hilar or mediastinal lymph nodes. No cardiomegaly o r pericardial effusion is seen. Stable right internal jugular Mediport catheter. Coronary artery dk cification is redemonstrated. LIVER/GB: Liver remains heterogeneously hypodense suggesting diffuse fatty infiltration. PANCREAS: No significant abnormality is seen. SPLEEN: No significant abnormality is seen. ADRENALS: No significant abnormality is seen. KIDNEYS: Persistence of benign thin-walled 3.6 cm partially exophytic cyst posteriorly upper pole of the right kidney. BOWEL: Oral contrast reaches level of the left colon. No suspicious small or large bowel dilatation. Occasional diverticula in the proximal somewhat redundant sigmoid colon again seen. Normal contrast-f illed appendix. GENITAL ORGANS: Uterus is surgically absent. Stable 1.6 by 1.4 cm nodular prominence along the right aspect of the remnant vaginal cuff axial image 113 is unchanged from several prior studies. LYMPH NODES: Just superior to the right pelvic 1.4 cm nodular prominence there is 10 x 4 mm right per irectal lymph node axial image 111 which appears to correspond to the hypermetabolic lymph node PET C T axial image 212 is less well seen on the most recent CT. There is suspicious 7 mm presacral mass or lymph node axial image 99 left well seen on most recent CT near area of hypermetabolic lymph node on recent PET/CT. More prominent or new suspicious 8 mm lymph node superior to this to right of 2 small vessels image 97 is now identified new or not clearly seen on most recent CT. Surgical clip near rig ht iliac vessels axial image 91 redemonstrated. New 1.2 x 1.2 cm lymph node at iliac bifurcation axia l image 81 from even PET/CT. Just below this there is new additional new 1.2 cm lymph node axial imag e 85. OSSEOUS STRUCTURES: Slight underlying scoliotic curvature some disc space narrowing and vacuum disc p henomenon in the midthoracic spine with mild anterior spurring. Vacuum disc phenomenon with mild to m oderate disc space narrowing lumbosacral junction. OTHER: No significant additional abnormality is seen. IMPRESSION: Worsening pelvic adenopathy as detailed above when correlating with most recent CT and PE T/CT studies.
== END | disposition home or self-care (01) ==
LOC: RADPROMAIN 09:36
PROVIDERS: ATTEND Internal Medicine Hematology & Oncology
DX: R59.0 Localized enlarged lymph nodes (principal)
CPT/HCPCS: 71260; 74177; J1642; Q9967

== ENCOUNTER 2021-09-07 17:00 | Inpatient (IN) | payer MEDICARE ==
[2021-09-07] MEDS ORDERED: ONDANSETRON 4 MG/2 ML VIAL IVP STA (17:33)
[2021-09-07] MEDS ORDERED: HYDROmorphone 0.5 MG/0.5 ML SYRINGE IVP STA (17:33)
[2021-09-07] MEDS ORDERED: SODIUM CHLORIDE 0.9% 500 ML 500 ML IV STA (17:33)
--- NOTE | 2021-09-07 17:40 | ED ---
Abdominal Pain HPI - General Chief Complaint: Abdominal Pain Stated Complaint: Abd pain Time Seen by Provider: 09/07/21 17:22 Source: patient, RN notes reviewed Mode of arrival: wheelchair Limitations: no limitations - History of Present Illness Initial Comments: This is a pleasant 81-year-old female with a history of ovarian cancer which was surgically excised in 2007. However patient has had several recurrences of the cancer. Most recently the cancer has been found to have spread to the bowel and regional lymph nodes. Patient was started on chemotherapy 4 weeks ago and received a dose of chemotherapy on . Patient states she developed abdominal pain last night. Complaining of dull with intermittent sharp pain as well as a distended abdomen which started in the middle of the night but has progressed. Patient states most pain is in the left side of the abdomen and does radiate to the left flank. Patient has had several episodes of nausea and vomiting. Patient has had several episodes of watery diarrhea with food pr oducts in it. Even. No chest pain or shortness of breath. No headache, no fever or chills, no changes in vision or hearing, no sore throat or difficulty with speech, no neck pain, no chest pain or shortness of breath, , no changes in urination or bowel movements, no numbness or tingling, no extremity pain, no skin rashes or lesions. MD Complaint: abdominal pain - Related Data Home Medications Medication Instructions Recorded Confirmed Atorvastatin [Lipitor] 10 mg PO HS 08/25/17 09/04/21 FLUoxetine HCL [PROzac] 10 mg PO DAILY 10/18/17 09/04/21 Cholecalciferol [Vitamin D3 (25 1,000 unit PO DAILY 05/28/20 09/04/21 Mcg = 1000 Iu)] B12/Levomefolate Calcium/B-6 500 mg PO DAILY 10/29/20 09/04/21 [Foltx Tablet] Beclomethasone Dipropionate [Qvar 1 - 2 puff INHALATION Q12HR 10/29/20 09/04/21 40 mcg Redihaler] Previous Rx's Medication Instructions Recorded Ascorbic Acid [Vitamin C] 500 mg PO DAILY #30 tab 05/30/20 Allergies Allergy/AdvReac Type Severity Reaction Status Date / Time carboplatin AdvReac Severe HEART Verified 09/04/21 08:39 PROBLEMS, BLACKED OUT. codeine AdvReac Severe SEVERE Verified 09/04/21 08:39 HEADACHE Sulfa (Sulfonamide AdvReac Severe SEVERE Verified 09/04/21 08:39 Antibiotics) HEADACHE lorazepam [From Ativan] AdvReac Unknown VERY Verified 09/04/21 08:39 DROWSY - SLEPT 12 HOURS ondansetron AdvReac Unknown SWELLING Verified 09/04/21 08:39 [From Zofran (as OF TONGUE, hydrochloride)] UNABLE TO TALK prochlorperazine AdvReac Unknown CONFUSED- Verified 09/04/21 08:39 [From Compazine] FELT DRUGGED UP. Review of Systems ROS Statement: Those systems with pertinent positive or pertinent negative responses have been documented in the HPI. ROS Other: All systems not noted in ROS Statement are negative. Past Medical History Past Medical History: Cancer, COPD, CVA/TIA, Hyperlipidemia, Osteoarthritis (OA) Additional Past Medical History / Comment(s): 2007 OVARIAN CANCER WITH SURGERY X2 AND CHEMO (LAST CHEMO 07/2015), TIA x 2, HX OF MIGRAINES, DIVERTICULOSIS migraines in past, UTI., STATES SORE LEFT LOWER EYE LID AND SURGERY SCHEDULED FOR 09/02/17., PT STATES UNSURE OF COPD., ITCHY SKIN, STATES VERY SENSITIVE TO MEDICATIONS AND ANESTHESIA. History of Any Multi-Drug Resistant Organisms: None Reported Past Surgical History: Bladder Surgery, Hysterectomy Additional Past Surgical History / Comment(s): 2007 cancerous ovarian mass removed, 01/2015 pelvic surgery for more cancer removal, colonoscopy, bladder suspension, hemorrhoidectomy, nose repair, ovarian cystectomy. Past Anesthesia/Blood Transfusion Reactions: Previous Problems w/ Anesthesia, Postoperative Nausea & Vomiting (PONV) Additional Past Anesthesia/Blood Transfusion Reaction / Comment(s): STATES D IFFICULTY WAKING UP- RECEIVED NARCAN , RECORDS REQUESTED FROM [facility] . (02/2015) Past Psychological History: Anxiety, Depression Smoking Status: Former smoker Past Alcohol Use History: Rare Past Drug Use History: None Reported - Past Family History Father Family Medical History: Cancer Additional Family Medical History / Comment(s): Father had lymphoma. Mother Family Medical History: Cancer Additional Family Medical History / Comment(s): Mother had skin cancer on her nose. General Exam - General Exam Comments Initial Comments: Elderly female in significant distress secondary to abdominal pain. Cranial nerves II through XII grossly intact. Vital signs reviewed. Capillary refill is less than 2 seconds. Limitations: no limitations General appearance: alert, in distress Head exam: Present: atraumatic, normocephalic, normal inspection Eye exam: Present: normal appearance, PERRL, EOMI. Absent: scleral icterus, conjunctival injection, periorbital swelling ENT exam: Present: normal exam, normal oropharynx, mucous membranes moist Neck exam: Present: normal inspection. Absent: tenderness, meningismus, lymphadenopathy Respiratory exam: Present: normal lung sounds bilaterally. Absent: respiratory distress, wheezes, rales, rhonchi, stridor, chest wall tenderness, accessory muscle use Cardiovascular Exam: Present: normal rhythm, tachycardia, normal heart sounds. Absent: systolic murmur, diastolic murmur, rubs, gallop, clicks GI/Abdominal exam: Present: distended, tenderness (Patient has generalized tenderness which seems to be most pronounced in the area of the left lower quadrant. However patient does have tenderness in the right lower quadrant as well.), guarding, hyperactive bowel sounds, other (No definitive rebound or percussion tenderness. Patient does have some guarding which seems to be voluntary to left abdomen. Mild distention. Tender to the left hypochondriac, left lumbar and left iliac regions. Mild tenderness elsewhere). Absent: rebound, rigid Extremities exam: Present: normal inspection, full ROM, normal capillary refill. Absent: tenderness, pedal edema, joint swelling, calf tenderness Back exam: Present: normal inspection Neurological exam: Present: alert, oriented X3, CN II-XII intact Psychiatric exam: Present: normal affect, normal mood Skin exam: Present: warm, dry, intact, normal color. Absent: rash Course Vital Signs 09/07/21 17:15 Temperature 99.0 F Pulse Rate 107 H Respiratory 18 Rate Blood Pressure 145/65 O2 Sat by Pulse 96 Oximetry - Reevaluation(s) Reevaluation #1: 09/07/21 21:06 Medical record is reviewed Symptoms are improved here in the emergency department Patient is informed of results and questions answered Patient in no distress Medical Decision Making - Medical Decision Making Patient presents with abdominal pain. History of ovarian cancer on chemotherapy. We'll order a CT abdomen and pelvis and plan for reevaluation. Note that the patient is hemodynamically stable other than having initial heart rate of 170 triage. Troponin and EKG will be added as well. Case was discussed with the patient's surgeon, Dr. Martinez, who agrees to admit the patient. Consultation for hospitalist for medical management will be made. I'm going to touch base with the patient's oncologist as well, Dr. Denis. The case was discussed in detail with ED attending physician. Presentation, findings, treatment plan discussed in detail. - Lab Data Result diagrams: 09/07/21 18:17 09/07/21 18:17 Lab Results 09/07/21 09/07/21 09/07/21 Range/Units 18:17 18:17 18:17 WBC 8.9 (3.8-10.6) k/uL RBC 3.63 L (3.80-5.40) m/uL Hgb 11.9 (11.4-16.0) gm/dL Hct 35.6 (34.0-46.0) % MCV 98.1 (80.0-100.0) fL MCH 32.8 (25.0-35.0) pg MCHC 33.4 (31.0-37.0) g/dL RDW 13.8 (11.5-15.5) % Plt Count 157 (150-450) k/uL MPV 7.8 Neutrophils % 85 % Lymphocytes % 7 % Monocytes % 6 % Eosinophils % 1 % Basophils % 0 % Neutrophils # 7.5 (1.3-7.7) k/uL Lymphocytes # 0.6 L (1.0-4.8) k/uL Monocytes # 0.5 (0-1.0) k/uL Eosinophils # 0.1 (0-0.7) k/uL Basophils # 0.0 (0-0.2) k/uL PT 10.3 (9.0-12.0) sec INR 0.9 (<1.2) APTT 136.1 H* (22.0-30.0) sec Sodium 133 L (137-145) mmol/L Potassium 4.3 (3.5-5.1) mmol/L Chloride 104 (98-107) mmol/L Carbon Dioxide 22 (22-30) mmol/L Anion Gap 7 mmol/L BUN 15 (7-17) mg/dL Creatinine 0.91 (0.52-1.04) mg/dL Est GFR (CKD-EPI)AfAm 69 (>60 ml/min/1.73 sqM) Est GFR (CKD-EPI)NonAf 60 (>60 ml/min/1.73 sqM) Glucose 107 H (74-99) mg/dL Plasma Lactic Acid Theo (0.7-2.0) mmol/L Calcium 9.5 (8.4-10.2) mg/dL Total Bilirubin 0.8 (0.2-1.3) mg/dL AST 26 (14-36) U/L ALT 32 (4-34) U/L Alkaline Phosphatase 136 H (38-126) U/L Troponin I (0.000-0.034) ng/mL C-Reactive Protein 1.5 H (<1.0) mg/dL Total Protein 6.8 (6.3-8.2) g/dL Albumin 3.9 (3.5-5.0) g/dL Amylase 70 (30-110) U/L Lipase 102 (23-300) U/L Urine Color Urine Appearance (Clear) Urine pH (5.0-8.0) Ur Specific [place] (1.001-1.035) Urine Protein (Negative) Urine Glucose (UA) (Negative) Urine Ketones (Negative) Urine Blood (Negative) Urine Nitrite (Negative) Urine Bilirubin (Negative) Urine Urobilinogen (<2.0) mg/dL Ur Leukocyte Esterase (Negative) 09/07/21 09/07/21 09/07/21 Range/Units 18:17 18:17 19:25 WBC (3.8-10.6) k/uL RBC (3.80-5.40) m/uL Hgb (11.4-16.0) gm/dL Hct (34.0-46.0) % MCV (80.0-100.0) fL MCH (25.0-35.0) pg MCHC (31.0-37.0) g/dL RDW (11.5-15.5) % Plt Count (150-450) k/uL MPV Neutrophils % % Lymphocytes % % Monocytes % % Eosinophils % % Basophils % % Neutrophils # (1.3-7.7) k/uL Lymphocytes # (1.0-4.8) k/uL Monocytes # (0-1.0) k/uL Eosinophils # (0-0.7) k/uL Basophils # (0-0.2) k/uL PT (9.0-12.0) sec INR (<1.2) APTT 21.1 L (22.0-30.0) sec Sodium (137-145) mmol/L Potassium (3.5-5.1) mmol/L Chloride (98-107) mmol/L Carbon Dioxide (22-30) mmol/L Anion Gap mmol/L BUN (7-17) mg/dL Creatinine (0.52-1.04) mg/dL Est GFR (CKD-EPI)AfAm (>60 ml/min/1.73 sqM) Est GFR (CKD-EPI)NonAf (>60 ml/min/1.73 sqM) Glucose (74-99) mg/dL Plasma Lactic Acid Theo 0.9 (0.7-2.0) mmol/L Calcium (8.4-10.2) mg/dL Total Bilirubin (0.2-1.3) mg/dL AST (14-36) U/L ALT (4-34) U/L Alkaline Phosphatase (38-126) U/L Troponin I <0.012 (0.000-0.034) ng/mL C-Reactive Protein (<1.0) mg/dL Total Protein (6.3-8.2) g/dL Albumin (3.5-5.0) g/dL Amylase (30-110) U/L Lipase (23-300) U/L Urine Color Urine Appearance (Clear) Urine pH (5.0-8.0) Ur Specific [place] (1.001-1.035) Urine Protein (Negative) Urine Glucose (UA) (Negative) Urine Ketones (Negative) Urine Blood (Negative) Urine Nitrite (Negative) Urine Bilirubin (Negative) Urine Urobilinogen (<2.0) mg/dL Ur Leukocyte Esterase (Negative) 09/07/21 Range/Units 20:00 WBC (3.8-10.6) k/uL RBC (3.80-5.40) m/uL Hgb (11.4-16.0) gm/dL Hct (34.0-46.0) % MCV (80.0-100.0) fL MCH (25.0-35.0) pg MCHC (31.0-37.0) g/dL RDW (11.5-15.5) % Plt Count (150-450) k/uL MPV Neutrophils % % Lymphocytes % % Monocytes % % Eosinophils % % Basophils % % Neutrophils # (1.3-7.7) k/uL Lymphocytes # (1.0-4.8) k/uL Monocytes # (0-1.0) k/uL Eosinophils # (0-0.7) k/uL Basophils # (0-0.2) k/uL PT (9.0-12.0) sec INR (<1.2) APTT (22.0-30.0) sec Sodium (137-145) mmol/L Potassium (3.5-5.1) mmol/L Chloride (98-107) mmol/L Carbon Dioxide (22-30) mmol/L Anion Gap mmol/L BUN (7-17) mg/dL Creatinine (0.52-1.04) mg/dL Est GFR (CKD-EPI)AfAm (>60 ml/min/1.73 sqM) Est GFR (CKD-EPI)NonAf (>60 ml/min/1.73 sqM) Glucose (74-99) mg/dL Plasma Lactic Acid Theo (0.7-2.0) mmol/L Calcium (8.4-10.2) mg/dL Total Bilirubin (0.2-1.3) mg/dL AST (14-36) U/L ALT (4-34) U/L Alkaline Phosphatase (38-126) U/L Troponin I (0.000-0.034) ng/mL C-Reactive Protein (<1.0) mg/dL Total Protein (6.3-8.2) g/dL Albumin (3.5-5.0) g/dL Amylase (30-110) U/L Lipase (23-300) U/L Urine Color Light Yellow Urine Appearance Clear (Clear) Urine pH 7.5 (5.0-8.0) Ur Specific [place] 1.016 (1.001-1.035) Urine Protein Negative (Negative) Urine Glucose (UA) Negative (Negative) Urine Ketones 1+ H (Negative) Urine Blood Negative (Negative) Urine Nitrite Negative (Negative) Urine Bilirubin Negative (Negative) Urine Urobilinogen <2.0 (<2.0) mg/dL Ur Leukocyte Esterase Negative (Negative) - EKG Data EKG Comments: EKG done at 1841 ED attending physician reveals sinus rhythm with rate of 88. Normal intervals. Normal axis. Nonspecific T-wave abnormality. No evidence of acute ST changes.. No change from the previous study from 2019 - Radiology Data Radiology results: report reviewed, image reviewed (Consistent with acute a ppendicitis with appendicolith. Surrounding inflammatory changes) Disposition Clinical Impression: Acute appendicitis, Abdominal pain Disposition: ADMITTED IP TO THIS HOSP Condition: Stable Referrals: Kendrick Willard MD [Primary Care Provider] - 1-2 days Time of Disposition: 21:07
[2021-09-07 18:47] LABS: Basophils % (A) 0 %; Eosinophils # (A) 0.1 k/uL (0-0.7); Eosinophils % (A) 1 %; HCT 35.6 % (34.0-46.0); HGB 11.9 gm/dL (11.4-16.0); Lymphocytes # (A) 0.6 k/uL (1.0-4.8); Lymphocytes % (A) 7 %; MCH 32.8 pg (25.0-35.0); MCHC 33.4 g/dL (31.0-37.0); MCV 98.1 fL (80.0-100.0); Mean Platelet Volume 7.8; Monocytes # (A) 0.5 k/uL (0-1.0); Monocytes % (A) 6 %; Neutrophils # (A) 7.5 k/uL (1.3-7.7); Neutrophils % (A) 85 %; Platelet Count 157 k/uL (150-450); RBC 3.63 m/uL (3.80-5.40); RDW 13.8 % (11.5-15.5); WBC 8.9 k/uL (3.8-10.6)
[2021-09-07 18:55] LABS: Albumin 3.9 g/dL (3.5-5.0); C Reactive Protein 1.5 mg/dL (<1.0); Calcium 9.5 mg/dL (8.4-10.2); Potassium 4.3 mmol/L (3.5-5.1); Total Bilirubin 0.8 mg/dL (0.2-1.3); Total Protein 6.8 g/dL (6.3-8.2)
[2021-09-07 19:08] LABS: INR 0.9 (<1.2); Prothrombin Time 10.3 sec (9.0-12.0)
--- NOTE | 2021-09-07 19:09 | XR ---
EXAMINATION TYPE: XR chest 1V portable DATE OF EXAM: 09/07/2021 COMPARISON: 06/11/2020 HISTORY: Follow-up pneumonia TECHNIQUE: 2 views FINDINGS: Heart and mediastinum are normal. Lungs are clear. Diaphragm is normal. Bony thorax is inta ct. There is right central venous catheter with tip in the superior vena cava. There is no pleural ef fusion. IMPRESSION: Normal chest. No adverse change.
[2021-09-07 19:10] LABS: Partial Thromboplastin Time 136.1 sec (22.0-30.0)
[2021-09-07] MEDS ORDERED: diphenhydrAMINE 50 MG/ML 1 ML VIAL IVP STA (19:36)
[2021-09-07] MEDS ORDERED: FAMOTIDINE 20 MG/2 ML VIAL IV STA (19:36)
[2021-09-07] MEDS ORDERED: methylPREDNISolone SOD SUCCI 125 MG/2 ML VIAL IV STA (19:36)
--- NOTE | 2021-09-07 20:35 | CT ---
EXAMINATION TYPE: CT abdomen pelvis w con DATE OF EXAM: 09/07/2021 COMPARISON: 01/21/2021 And 07/31/2021 HISTORY: Abdominal pain. Chemo 4 days ago. History of ovarian cancer. CT DLP: 1098.6 mGycm Automated exposure control for dose reduction was used. CONTRAST: Performed with IV Contrast, patient injected with 80 mL of Isovue 300. Lung bases are clear. There is no pleural effusion. Heart size is normal. There is no pericardial eff usion. Liver spleen stomach appear intact. The bile ducts are not dilated. There is small hiatal hernia. The re is no adrenal mass. Kidneys show satisfactory contrast opacification. There is no hydronephrosis. There is a 4 cm cortical cyst upper pole right kidney. Delayed images show normal renal excretion. Ur eters are nondilated. There is no retroperitoneal adenopathy. There is some fat stranding in the righ t lower quadrant. There is possible appendicolith. There is elongated structure that could be dilated appendix and measures 13 mm. The terminal ileum appears normal. There is no ascites or free air. There is no sign of a bowel obstruction. The lumbar vertebrae have normal alignment. Posterior elements are intact. There is no compression fr acture. Abdominal aorta is atheromatous. The bony pelvis is intact. The hip joints are intact. IMPRESSION: Dilated appendix with surrounding inflammatory changes and appendicolith and consistent with appendic itis. This appears new compared to old exam.
[2021-09-07 21:00] LABS: Appearance,Urine Clear (Clear); Bilirubin,Urine Negative (Negative); Blood,Urine Negative (Negative); Color,Urine Light Yellow; Glucose,Urine (UA) Negative (Negative); Ketones,Urine 1+ (Negative); Leukocyte Esterase,Urine Negative (Negative); Nitrite,Urine Negative (Negative); PH, Urine 7.5 (5.0-8.0); Protein,Urine Negative (Negative); Specific Gravity,Urine 1.016 (1.001-1.035); Urobilinogen,Urine <2.0 mg/dL (<2.0)
[2021-09-07] MEDS ORDERED: PIPERACILLIN-TAZOBACTAM 3.375 GM in SODIUM CHLORIDE 0.9% 100 ML IVPB STA (21:00)
[2021-09-07] MEDS ORDERED: HYDROmorphone 0.5 MG/0.5 ML SYRINGE IVP PRN (21:09)
[2021-09-07] MEDS ORDERED: NALOXONE 0.4 MG/ML 1 ML VIAL IV PRN (21:09)
[2021-09-07] MEDS ORDERED: ONDANSETRON 4 MG/2 ML VIAL IVP PRN (21:09)
[2021-09-07] MEDS: SODIUM CHLORIDE 0.9% 1,000 ML IV SCH (22:45)
[2021-09-08] MEDS: SODIUM CHLORIDE 0.9% 1,000 ML IV SCH ×3 (06:10→23:26)
[2021-09-08] MEDS: PIPERACILLIN-TAZOBACTAM 3.375 GM in SODIUM CHLORIDE 0.9% 100 ML IVPB SCH ×3 (06:59→23:26)
[2021-09-08] MEDS ORDERED: IV FLUID CONTINUATION 1,000 ML IV ONE (07:57)
[2021-09-08 08:17] LABS: Basophils % (A) 0 %; Eosinophils % (A) 0 %; HCT 38.1 % (34.0-46.0); HGB 12.7 gm/dL (11.4-16.0); Lymphocytes # (A) 0.9 k/uL (1.0-4.8); Lymphocytes % (A) 8 %; MCH 33.9 pg (25.0-35.0); MCHC 33.3 g/dL (31.0-37.0); MCV 102.1 fL (80.0-100.0); Macrocytosis Slight; Monocytes # (A) 0.5 k/uL (0-1.0); Monocytes % (A) 5 %; Neutrophils # (A) 8.8 k/uL (1.3-7.7); Neutrophils % (A) 85 %; Platelet Count 160 k/uL (150-450); RBC 3.73 m/uL (3.80-5.40); RDW 13.8 % (11.5-15.5); WBC 10.3 k/uL (3.8-10.6)
[2021-09-08] MEDS ORDERED: LACTATED RINGERS 1,000 ML IV ONE ×3 (08:25→09:36)
--- NOTE | 2021-09-08 08:31 | P.GSHP ---
History of Present Illness H&P Date: 09/08/21 Chief Complaint: Acute appendicitis 81-year-old female came to the hospital yesterday with lower abdominal pain. Patient has a pertinent history significant for ovarian cancer. Patient has been on chemotherapy intermittently since 2007. Currently undergoing chemotherapy for her recurrent ovarian cancer. She says she's had 2 major surgeries for her ovarian cancer. Came to the hospital yesterday with abdominal pain that began in the middle of the night. Patient has had episodes of nausea and vomiting. Patient's pain is lower abdomen generalized. She was actually more tender per the ER staff in the left lower quadrant. CAT scan was then obtained which demonstrates acute appendicitis with an appendicolith and periappendiceal inflammatory changes. T-max 99.0. Tachycardia on arrival that resolved. White blood cell count 8.9. - Review of Systems Comment: The patient denies any acute changes in vision or hearing, no dysphagia or odynophagia, no chest pain or shortness of breath, no dysuria or hematuria, no headache, no runny nose, no rectal bleeding or melena, no unexplained weight loss Past Medical History Past Medical History: Cancer, COPD, CVA/TIA, Hyperlipidemia, Osteoarthritis (OA) Additional Past Medical History / Comment(s): 2008 OVARIAN CANCER WITH SURGERY X2 AND CHEMO (LAST CHEMO 07/2015), TIA x 2, HX OF MIGRAINES, DIVERTICULOSIS [facility] in past, UTI., STATES SORE LEFT LOWER EYE LID AND SURGERY SCHEDULED FOR 09/02/17., PT STATES UNSURE OF COPD., ITCHY SKIN, STATES VERY SENSITIVE TO MEDICATIONS AND ANESTHESIA. History of Any Multi-Drug Resistant Organisms: None Reported Past Surgical History: Bladder Surgery, Hysterectomy Additional Past Surgical History / Comment(s): 2007 cancerous ovarian mass removed, 01/2015 pelvic surgery for more cancer removal, colonoscopy, bladder suspension, hemorrhoidectomy, nose repair, ovarian cystectomy. Past Anesthesia/Blood Transfusion Reactions: Previous Problems w/ Anesthesia, Postoperative Nausea & Vomiting (PONV) Additional Past Anesthesia/Blood Transfusion Reaction / Comment(s): STATES DIFFICULTY WAKING UP- RECEIVED NARCAN , RECORDS REQUESTED FROM [facility] . (02/2015) Past Psychological History: Anxiety, Depression Smoking Status: Former smoker Past Alcohol Use History: Rare Additional Past Alcohol Use History / Comment(s): Pt started smoking in 1957 and quit in 2007. SMOKED 1 PPD, SMOKED APPROX 50 YRS. Past Drug Use History: None Reported - Past Family History Father Family Medical History: Cancer Additional Family Medical History / Comment(s): Father had lymphoma. Mother Family Medical History: Cancer Additional Family Medical History / Comment(s): Mother had skin cancer on her nose. Medications and Allergies Home Medications Medication Instructions Recorded Confirmed Type Atorvastatin [Lipitor] 10 mg PO HS 08/25/17 09/07/21 History ALPRAZolam [Xanax] 0.25 mg PO BID PRN 09/07/21 09/07/21 History Ascorbic Acid [Vitamin C] 250 mg PO DAILY 09/07/21 09/07/21 History Cyanocobalamin [Vitamin B-12] 500 mcg PO DAILY 09/07/21 09/07/21 History FLUoxetine HCL [PROzac] 20 mg PO BID 09/07/21 09/07/21 History Ondansetron Odt [Zofran Odt] 8 mg PO Q6H PRN 09/07/21 09/07/21 History Allergies Allergy/AdvReac Type Severity Reaction Status Date / Time carboplatin AdvReac Severe HEART Verified 09/07/21 21:33 PROBLEMS, BLACKED OUT. codeine AdvReac Severe SEVERE Verified 09/07/21 21:33 HEADACHE Sulfa (Sulfonamide AdvReac Severe SEVERE Verified 09/07/21 21:33 Antibiotics) HEADACHE lorazepam [From Ativan] AdvReac Unknown VERY Verified 09/07/21 21:33 DROWSY - SLEPT 12 HOURS prochlorperazine AdvReac Unknown CONFUSED- Verified 09/07/21 21:33 [From Compazine] FELT DRUGGED UP. Surgical - Exam Vital Signs Temp Pulse Resp BP Pulse Ox 99.0 F 107 H 18 145/65 96 09/07/21 17:15 09/07/21 17:15 09/07/21 17:15 09/07/21 17:15 09/07/21 17:15 Physical exam: General: Well-developed, well-nourished HEENT: Normocephalic, sclerae nonicteric Abdomen: Mildly distended, lower midline tenderness, large midline scar Extremities: No edema Neuro: Alert and oriented Results - Labs 09/07/21 18:17 09/07/21 18:17 Abnormal Lab Results - Last 24 Hours (Table) 0309/07/21 09/07/21 Range/Units 18:17 18:17 18:17 RBC 3.63 L (3.80-5.40) m/uL Lymphocytes # 0.6 L (1.0-4.8) k/uL APTT 136.1 H* (22.0-30.0) sec Sodium 133 L (137-145) mmol/L Glucose 107 H (74-99) mg/dL Alkaline Phosphatase 136 H (38-126) U/L C-Reactive Protein 1.5 H (<1.0) mg/dL Urine Ketones (Negative) 09/07/21 09/07/21 Range/Units 19:25 20:00 RBC (3.80-5.40) m/uL Lymphocytes # (1.0-4.8) k/uL APTT 21.1 L (22.0-30.0) sec Sodium (137-145) mmol/L Glucose (74-99) mg/dL Alkaline Phosphatase (38-126) U/L C-Reactive Protein (<1.0) mg/dL Urine Ketones 1+ H (Negative) Diabetes panel 09/07/21 Range/Units 18:17 Sodium 133 L (137-145) mmol/L Potassium 4.3 (3.5-5.1) mmol/L Chloride 104 (98-107) mmol/L Carbon Dioxide 22 (22-30) mmol/L BUN 15 (7-17) mg/dL Creatinine 0.91 (0.52-1.04) mg/dL Glucose 107 H (74-99) mg/dL Calcium 9.5 (8.4-10.2) mg/dL AST 26 (14-36) U/L ALT 32 (4-34) U/L Alkaline Phosphatase 136 H (38-126) U/L Total Protein 6.8 (6.3-8.2) g/dL Albumin 3.9 (3.5-5.0) g/dL Calcium panel 09/07/21 Range/Units 18:17 Calcium 9.5 (8.4-10.2) mg/dL Albumin 3.9 (3.5-5.0) g/dL Pituitary panel 09/07/21 Range/Units 18:17 Sodium 133 L (137-145) mmol/L Potassium 4.3 (3.5-5.1) mmol/L Chloride 104 (98-107) mmol/L Carbon Dioxide 22 (22-30) mmol/L BUN 15 (7-17) mg/dL Creatinine 0.91 (0.52-1.04) mg/dL Glucose 107 H (74-99) mg/dL Calcium 9.5 (8.4-10.2) mg/dL Adrenal panel 09/07/21 Range/Units 18:17 Sodium 133 L (137-145) mmol/L Potassium 4.3 (3.5-5.1) mmol/L Chloride 104 (98-107) mmol/L Carbon Dioxide 22 (22-30) mmol/L BUN 15 (7-17) mg/dL Creatinine 0.91 (0.52-1.04) mg/dL Glucose 107 H (74-99) mg/dL Calcium 9.5 (8.4-10.2) mg/dL Total Bilirubin 0.8 (0.2-1.3) mg/dL AST 26 (14-36) U/L ALT 32 (4-34) U/L Alkaline Phosphatase 136 H (38-126) U/L Total Protein 6.8 (6.3-8.2) g/dL Albumin 3.9 (3.5-5.0) g/dL Assessment and Plan (1) Acute appendicitis Narrative/Plan: 81-year-old female currently undergoing chemotherapy for ovarian cancer. Patient with presentation to the ER complaining of abdominal pain and CAT scan findings demonstrated acute appendicitis. Clinical scenario discussed with the patient in detail. Patient remains tender. This does not appear to be an appendicitis it can be treated with antibiotics given the degree of inflammatory changes. We'll proceed with laparoscopic, possible open appendectomy at this time. Risks of bleeding, infection, scarring, hernia, conversion to an open procedure, possible need for bowel resection, bladder bowel and ureteral injury, leak, sepsis reviewed. She understands and wishes to proceed. Current Visit: Yes Status: Acute Code(s): K35.80 - UNSPECIFIED ACUTE APPENDICITIS SNOMED Code(s): 53829437
[2021-09-08] MEDS ORDERED: PROPOFOL 10 MG/ML 20 ML VIAL IV ONE (08:34)
[2021-09-08] MEDS ORDERED: HYDROmorphone (PF) 1 MG/ML ONE (08:34)
[2021-09-08] MEDS ORDERED: GLYCOPYRROLATE 0.2 MG/ML 2 ML VIAL ONE (08:34)
[2021-09-08] MEDS ORDERED: HEPARIN SODIUM,PORCINE 5,000 UNIT/ML 1 ML VIAL ONE (08:34)
[2021-09-08] MEDS ORDERED: LIDOCAINE 1% INJ 10MG/ML (20 ML MDV) ONE (08:34)
[2021-09-08] MEDS ORDERED: ROCURONIUM 10 MG/ML (5 ML VIAL) IV ONE (08:34)
[2021-09-08] MEDS ORDERED: DEXAMETHASONE SOD PHOSPHATE 10 MG/ML 1 ML VIAL ONE (08:34)
[2021-09-08] MEDS ORDERED: fentaNYL (PF) 50 MCG/ML 2 ML AMP ONE (08:34)
[2021-09-08] MEDS ORDERED: SUCCINYLCHOLINE CHLORIDE 100 MG/5 ML SYR IV ONE (08:34)
[2021-09-08] MEDS ORDERED: NEOSTIGMINE 1 MG/ML 10 ML VIAL ONE (08:34)
[2021-09-08 08:35] LABS: Calcium 9.3 mg/dL (8.4-10.2)
[2021-09-08 08:37] LABS: Potassium 4.4 mmol/L (3.5-5.1)
[2021-09-08] MEDS ORDERED: BUPIVACAIN-EPI 0.25%-1:200,000 30 ML VIAL SQ ONE ×2 (09:01)
[2021-09-08] MEDS ORDERED: ALPRAZolam 0.25 MG TAB PO PRN (09:28)
[2021-09-08] MEDS ORDERED: traMADol 50 MG TAB PO PRN (09:47)
--- NOTE | 2021-09-08 09:52 | P.OP ---
Date of Procedure: 09/08/21 Procedure(s) Performed: PREOPERATIVE DIAGNOSIS: Acute appendicitis POSTOPERATIVE DIAGNOSIS: Same PROCEDURE: Laparoscopic appendectomy SURGEON: Michelle EBL: 10 mL ANESTHESIA: General COMPLICATIONS: None OPERATIVE PROCEDURE: The patient was brought and placed on the operating table in the supine position. The patient was placed under general anesthesia. The abdomen was prepped and draped in the usual sterile fashion. A small incision was made in the left midabdomen. A 5 mm optical trocar was used to enter the abdominal cavity at that location. Full insufflation took place to 15 mmHg. The patient had extensive dense adhesions between the small bowel and the abdominal wall primarily in the midline. I was able to place another 5 mm trocar in the right upper quadrant. From that location the camera was then inserted and a 5 mm suprapubic trocar was placed and a 5 mm right periumbilical trocar was placed under direct visualization. We were able to avoid the adhesions. The right upper quadrant 5 mm trocar was switched to a 12 mm@that point. The appendix was inspected. It was acutely inflamed. The mesoappendix was dissected. The base of the appendix was divided using a linear 45 mm intestinal stapler. There did appear to be some thickened tissue around the base of the appendix possibly on the basis of residual ovarian cancer deposits. The mesentery itself was divided using the LigaSure. The area was then irrigated. No further purulence or bleeding was seen. The appendix was brought out of the peritoneal cavity through the left lower quadrant trocar site using an Endo Catch bag. The fascia at the 12 mm site was closed using a and Katheryn 0 Vicryl stitch. The skin at all 4 sites was closed using 4-0 Monocryl sutures. Skin glue was then applied. DISPOSITION: Stable to recovery room
[2021-09-08] MEDS ORDERED: HYDROmorphone 0.5 MG/0.5 ML SYRINGE IVP ONE ×2 (10:15→10:16)
[2021-09-08] MEDS ORDERED: diphenhydrAMINE 50 MG/ML 1 ML VIAL IVP ONE (10:17)
--- NOTE | 2021-09-08 12:14 | P.CONS ---
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 She presented to the hospital on 09/07/21 with a chief complaint of abdominal pain, nausea, vomiting, and diarrhea. She underwent full evaluation in the emergency department. X-ray negative for acute cardiopulmonary process. EKG showing normal sinus rhythm at 88 bpm with no noted T-wave or ST abnormality showing no signs of acute ischemia. CT abdomen and pelvis revealed a dilated appendix with surrounding inflammatory changes consistent with acute appendicitis. Labs drawn revealing mild hyponatremia with sodium of 133 and slightly elevated alkaline phosphatase of 136 and a CRP of 1.5. Troponin normal findings at less than 0.012. Urinalysis negative for protein, blood, or infection. Patient was admitted under general surgery team and underwent a laparoscopic appendectomy earlier today. We were consulted for continued medical management throughout her hospitalization. Patient was seen and fully evaluated upon return to room from OR. Patient reports mild pain in right upper and mid quadrant, but otherwise denies any further complaints at this time. She has been tolerating sips of water denies having any postoperative nausea or vomiting. Patient also denies having any other complaints including headache, lightheadedness, dizziness, chest pain, palpitations, shortness of breath, cough, congestion, or experiencing any numbness/tingling/weakness in her extremities. Review of systems: Pertinent positives and negatives as discussed in HPI, a complete review of systems was performed and all other systems are negative. Physical exam: Vital signs reviewed and stable. General: Nontoxic, no distress and appears stated age. Derm: Skin warm and dry, normal coloration for ethnicity. Laparoscopic incisions to the abdomen well approximated and intact with no noted bleeding or drainage. Head: Atraumatic, normocephalic and symmetric. Eyes: EOMs intact, no lid lag, and anicteric sclera Mouth: no lip lesions, mucus membranes moist Cardiovascular: regular rate and rhythm with normal S1S2, no murmur, positive posterior tibial pulses bilaterally, and cap refill < 2 seconds. Lungs: Respirations even, regular, and unlabored on room air. Lungs CTA bilaterally, no rhonchi, no rales, no wheezing, and no accessory muscle usage. Abdominal: soft distended, no guarding, no appreciable organomegaly. Laparoscopic incisions to abdomen well approximated intact with no noted drainage or bleeding. Ext: ROM intact. No gross muscle atrophy, no edema, no contractures Neuro: Speech clear, face symmetrical and CN II-XII grossly intact with no noted focal neuro deficits Psych: Alert and oriented to person, place, time, and situation. Appropriate and pleasant affect. Assessment and Plan of Care: Abdominal pain with intractable nausea, vomiting, and diarrhea Acute appendicitis Status post appendectomy -Patient underwent laparoscopic surgery with Dr. Martinez today. -Symptomatic care and pain management. -Clear liquid diet and may advance as directed by general surgery team. -DVT prophylaxis with heparin -Symptomatic care and pain management -Encourage use of incentive spirometry 10-15 times hourly while awake. -Continue IV antibiotics Zosyn until further directed by general surgery team. Hyponatremia -Improved with IV fluids -Continue hydration with IV fluids until patient has increased oral intake. Depression and anxiety -Continue daily medication regimen with fluoxetine and alprazolam Hyperlipidemia -Continue daily medication regimen with atorvastatin 10 mg nightly. Thank you for allowing us to participate in the care of this pleasant patient. Do not hesitate to contact us with questions. Someone can be reached from the [facility] hospitalist group all hours of the day at [phone] or via [employer]. Past Medical History Past Medical History: Cancer, COPD, CVA/TIA, Hyperlipidemia, Osteoarthritis (OA) Additional Past Medical History / Comment(s): 2007 OVARIAN CANCER WITH SURGERY X2 AND CHEMO (LAST CHEMO 07/2015), TIA x 2, HX OF MIGRAINES, DIVERTICULOSIS migraines in past, UTI., STATES SORE LEFT LOWER EYE LID AND SURGERY SCHEDULED FOR 09/02/17., PT STATES UNSURE OF COPD., ITCHY SKIN, STATES VERY SENSITIVE TO MEDICATIONS AND ANESTHESIA. History of Any Multi-Drug Resistant Organisms: None Reported Past Surgical History: Bladder Surgery, Hysterectomy Additional Past Surgical History / Comment(s): 2007 cancerous ovarian mass removed, 01/2015 pelvic surgery for more cancer removal, colonoscopy, bladder suspension, hemorrhoidectomy, nose repair, ovarian cystectomy. Past Anesthesia/Blood Transfusion Reactions: Previous Problems w/ Anesthesia, Postoperative Nausea & Vomiting (PONV) Additional Past Anesthesia/Blood Transfusion Reaction / Comm: STATES DIFFICULTY WAKING UP- RECEIVED NARCAN , RECORDS REQUESTED FROM [facility] . (02/2015) Past Psychological History: Anxiety, Depression Smoking Status: Former smoker Past Alcohol Use History: Rare Additional Past Alcohol Use History / Comment(s): Pt started smoking in 195 and quit in 2007. SMOKED 1 PPD, SMOKED APPROX 50 YRS. Past Drug Use History: None Reported - Past Family History Father Family Medical History: Cancer Additional Family Medical History / Comment(s): Father had lymphoma. Mother Family Medical History: Cancer Additional Family Medical History / Comment(s): Mother had skin cancer on her nose. Medications and Allergies Home Medications Medication Instructions Recorded Confirmed Type Atorvastatin [Lipitor] 10 mg PO HS 08/25/17 09/07/21 History ALPRAZolam [Xanax] 0.25 mg PO BID PRN 09/07/21 09/07/21 History Ascorbic Acid [Vitamin C] 250 mg PO DAILY 09/07/21 09/07/21 History Cyanocobalamin [Vitamin B-12] 500 mcg PO DAILY 09/07/21 09/07/21 History FLUoxetine HCL [PROzac] 20 mg PO BID 09/07/21 09/07/21 History Ondansetron Odt [Zofran ODT] 8 mg PO Q6H PRN 09/07/21 09/07/21 History Allergies Allergy/AdvReac Type Severity Reaction Status Date / Time carboplatin AdvReac Severe HEART Verified 09/07/21 21:33 PROBLEMS, BLACKED OUT. codeine AdvReac Severe SEVERE Verified 09/07/21 21:33 HEADACHE Sulfa (Sulfonamide AdvReac Severe SEVERE Verified 09/07/21 21:33 Antibiotics) HEADACHE lorazepam [From Ativan] AdvReac Unknown VERY Verified 09/07/21 21:33 DROWSY - SLEPT 12 HOURS prochlorperazine AdvReac Unknown CONFUSED- Verified 09/07/21 21:33 [From Compazine] FELT DRUGGED UP. Physical Exam Vitals: Vital Signs Temp Pulse Pulse Pulse Resp BP BP 09/08/21 10:30 75 16 09/08/21 10:15 83 16 09/08/21 10:00 85 16 09/08/21 09:53 97.8 F 103 H 20 09/08/21 08:03 98.4 F 74 17 112/57 09/08/21 05:14 98.2 F 72 16 114/52 09/08/21 04:15 98.0 F 93 18 102/51 09/07/21 23:45 98.4 F 88 16 122/69 09/07/21 23:04 98.2 F 78 16 115/51 09/07/21 17:15 99.0 F 107 H 18 145/65 BP Pulse Ox 09/08/21 10:30 158/70 100 09/08/21 10:15 166/76 100 09/08/21 10:00 129/90 95 09/08/21 09:53 129/90 100 09/08/21 08:03 92 L 09/08/21 05:14 94 L 09/08/21 04:15 97 09/07/21 23:45 90 L 09/07/21 23:04 96 09/07/21 17:15 96 Intake and Output 09/07/21 09/08/21 09/08/21 22:59 06:59 14:59 Intake Total 800 Output Total 500 5 Balance -500 795 Intake: IV 800 Output: Urine 500 Estimated Blood Loss 5 Other: Weight 81.647 kg Results CBC & Chem 7: 09/08/21 06:54 09/08/21 06:54 Labs: Abnormal Lab Results - Last 24 Hours (Table) 09/07/21 09/07/21 09/07/21 Range/Units 18:17 18:17 18:17 RBC 3.63 L (3.80-5.40) m/uL MCV (80.0-100.0) fL Neutrophils # (1.3-7.7) k/uL Lymphocytes # 0.6 L (1.0-4.8) k/uL APTT 136.1 H* (22.0-30.0) sec Sodium 133 L (137-145) mmol/L Carbon Dioxide (22-30) mmol/L Glucose 107 H (74-99) mg/dL Alkaline Phosphatase 136 H (38-126) U/L C-Reactive Protein 1.5 H (<1.0) mg/dL Urine Ketones (Negative) 09/07/21 09/07/21 09/08/21 Range/Units 19:25 20:00 06:54 RBC 3.73 L (3.80-5.40) m/uL MCV 102.1 H (80.0-100.0) fL Neutrophils # 8.8 H (1.3-7.7) k/uL Lymphocytes # 0.9 L (1.0-4.8) k/uL APTT 21.1 L (22.0-30.0) sec Sodium (137-145) mmol/L Carbon Dioxide (22-30) mmol/L Glucose (74-99) mg/dL Alkaline Phosphatase (38-126) U/L C-Reactive Protein (<1.0) mg/dL Urine Ketones 1+ H (Negative) 09/08/21 Range/Units 06:54 RBC (3.80-5.40) m/uL MCV (80.0-100.0) fL Neutrophils # (1.3-7.7) k/uL Lymphocytes # (1.0-4.8) k/uL APTT (22.0-30.0) sec Sodium 135 L (137-145) mmol/L Carbon Dioxide 19 L (22-30) mmol/L Glucose 104 H (74-99) mg/dL Alkaline Phosphatase (38-126) U/L C-Reactive Protein (<1.0) mg/dL Urine Ketones (Negative) <Radha Garibay - Last Filed: 09/09/21 18:49> History of Present Illness - History of Present Illness I reviewed the documentation as provided by the EDMOND above, who is the original author of this note. I agree with the documented assessment and plan, with the following changes: None Physical Exam Osteopathic Statement: *. No significant issues noted on an osteopathic structural exam other than those noted in the History and Physical/Consult. Vitals: Vital Signs Temp Pulse Pulse Resp BP Pulse Ox 09/09/21 13:00 97.4 F L 70 18 137/80 97 09/09/21 04:09 97.7 F 62 18 126/56 92 L 09/08/21 20:00 72 18 09/08/21 19:44 97 F L 72 18 132/65 95 Intake and Output 09/09/21 09/09/21 09/09/21 06:59 14:59 22:59 Intake Total 1500 1040 Balance 1500 1040 Intake: Intake, IV Titration 1500 Amount Sodium Chloride 0.9% 1, 1500 000 ml @ 125 mls/hr IV . Q8H MARGARITA Rx#:[id number] Oral 1040 Other: # Voids 3 Results CBC & Chem 7: 09/09/21 06:00 09/09/21 06:00 Labs: Abnormal Lab Results - Last 24 Hours (Table) 09/09/21 09/09/21 Range/Units 06:00 06:00 RBC 3.18 L (4.10-5.20) X 10*6/uL Hgb 10.3 L (12.0-15.0) g/dL Hct 32.5 L (37.2-46.3) % MCV 102.2 H (80.0-97.0) fL MCH 32.4 H (27.0-32.0) pg MCHC 31.7 L (32.0-37.0) g/dL Plt Count 133 L (140-440) X 10*3/uL Eosinophils # 0.02 L (0.04-0.35) X 10*3/uL Chloride 111 H (96-109) mmol/L Carbon Dioxide 17.7 L (20.0-27.5) mmol/L Est GFR (CKD-EPI)NonAf 53.2 L (60.0-200.0) BUN/Creatinine Ratio 9.10 L (12.00-20.00) Ratio Microbiology - Last 24 Hours (Table) 09/07/21 22:05 Blood Culture - Preliminary Blood No Growth after 24 hours 09/07/21 22:20 Blood Culture - Preliminary Blood No Growth after 24 hours
[2021-09-08] MEDS: HEPARIN SODIUM,PORCINE/PF 5,000 UNIT/0.5 ML SYRINGE SQ SCH ×2 (15:40→21:29)
--- NOTE | 2021-09-08 16:09 | P.CONS ---
History of Present Illness - Reason for Consult Consult date: 09/08/21 ovarian cancer Requesting physician: Earl Galvan - Chief Complaint abd pain - History of Present Illness Maryuri is a very pleasant female long time pt of pal Estrada with stage III ovarian cancer in May 2008. She had optimal debulking surgery followed by 6 cycles of adjuvant Carbo/Taxol completed 11/23/08. Her Ca125 was 39.9 in October 2011 and 69 on 04/22/2012. CT October 2011 was negative. PET 02/27/12 was negative except for increased uptake in the distal colon, c olonoscopy 04/25/12 was normal. She did well until 10/08 when Ca 125 increased to 163, CT AP revealed 2 new pelvic lesions. Treated with weekly carbo/taxol and completed 6 cycles on 02/24/13. All f/u imaging was neg until 12/08, Ca 125 was 110, CT 2 pelvic lesions. She was started in doxil x 6 and did well until 01/09, Ca125 was increasing, CT showed tissue density in rt pelvis, 03/15/15 she had another debulking surgery. Carbo/avastin but, had allergic reaction to carbo, cont on gemzar/avastin. She did well until 07/15, Ca125 64, 07/08/17 CT was negative however, upon further review with Radiologist, there was a new 1.5cm nodule in right paramedial cul de sac and 6 mm enlarging retroperitoneal node and some nodularity at vaginal cuff. 07/31/17 CA125 was 84. After multiple discussion over the phone and after she consulted with Dr Dallas at [facility], she initially agreed to start carboplatin/taxol with desensitization for carboplatin, which was started on 08/30/17 as inpatient however, she could not tolerate carbopatin and she decided to discontinue it and go on taxol/avastin every 3 weeks which was started 09/20/17. She had 5 cycles, completed 01/12, DC due to poor tolerance. She started anastrazole on 01/25/2018. 08/04/21 was seen in ofc for routine f/u, recent scan results and CA 125 which revealed disease progression, she was started on weekly cisplatin and has had 4 cycles, tolerated well. Plans for re-imaging and labs at the end of the month. Currently admitted for acute appendicitis. She is s/p lap appendectomy. She is just back to floor from surgery when seen. She is sleepy but, oriented X4 when she wakes up. No acute c/o. Review of Systems 10 point ROS is neg except as stated in HPI Past Medical History Past Medical History: Cancer, COPD, CVA/TIA, Hyperlipidemia, Osteoarthritis (OA) Additional Past Medical History / Comment(s): 2008 OVARIAN CANCER WITH SURGERY X2 AND CHEMO (LAST CHEMO 07/2015), TIA x 2, HX OF MIGRAINES, DIVERTICULOSIS migraines in past, UTI., STATES SORE LEFT LOWER EYE LID AND SURGERY SCHEDULED FOR 09/02/17., PT STATES UNSURE OF COPD., ITCHY SKIN, STATES VERY SENSITIVE TO MEDICATIONS AND ANESTHESIA. History of Any Multi-Drug Resistant Organisms: None Reported Past Surgical History: Bladder Surgery, Hysterectomy Additional Past Surgical History / Comment(s): 2007 cancerous ovarian mass removed, 01/2015 pelvic surgery for more cancer removal, colonoscopy, bladder anitra pension, hemorrhoidectomy, nose repair, ovarian cystectomy. Past Anesthesia/Blood Transfusion Reactions: Previous Problems w/ Anesthesia, Postoperative Nausea & Vomiting (PONV) Additional Past Anesthesia/Blood Transfusion Reaction / Comm: STATES DIFFICULTY WAKING UP- RECEIVED NARCAN , RECORDS REQUESTED FROM [facility] . (02/2015) Past Psychological History: Anxiety, Depression Smoking Status: Former smoker Past Alcohol Use History: Rare Additional Past Alcohol Use History / Comment(s): Pt started smoking in 1957 and quit in 2007. SMOKED 1 PPD, SMOKED APPROX 50 YRS. Past Drug Use History: None Reported - Past Family History Father Family Medical History: Cancer Additional Family Medical History / Comment(s): Father had lymphoma. Mother Family Medical History: Cancer Additional Family Medical History / Comment(s): Mother had skin cancer on her nose. Medications and Allergies Home Medications Medication Instructions Recorded Confirmed Type Atorvastatin [Lipitor] 10 mg PO HS 08/25/17 09/07/21 History ALPRAZolam [Xanax] 0.25 mg PO BID PRN 09/07/21 09/07/21 History Ascorbic Acid [Vitamin C] 250 mg PO DAILY 09/07/21 09/07/21 History Cyanocobalamin [Vitamin B-12] 500 mcg PO DAILY 09/07/21 09/07/21 History FLUoxetine HCL [PROzac] 20 mg PO BID 09/07/21 09/07/21 History Ondansetron Odt [Zofran Odt] 8 mg PO Q6H PRN 09/07/21 09/07/21 History Allergies Allergy/AdvReac Type Severity Reaction Status Date / Time carboplatin AdvReac Severe HEART Verified 09/07/21 21:33 PROBLEMS, BLACKED OUT. codeine AdvReac Severe SEVERE Verified 09/07/21 21:33 HEADACHE Sulfa (Sulfonamide AdvReac Severe SEVERE Verified 09/07/21 21:33 Antibiotics) HEADACHE lorazepam [From Ativan] AdvReac Unknown VERY Verified 09/07/21 21:33 DROWSY - SLEPT 12 HOURS prochlorperazine AdvReac Unknown CONFUSED- Verified 09/07/21 21:33 [From Compazine] FELT DRUGGED UP. Physical Exam Vitals: Vital Signs Temp Pulse Pulse Pulse Resp BP BP 09/08/21 10:30 75 16 09/08/21 10:15 83 16 09/08/21 10:00 85 16 09/08/21 09:53 97.8 F 103 H 20 09/08/21 08:03 98.4 F 74 17 112/57 09/08/21 05:14 98.2 F 72 16 114/52 09/08/21 04:15 98.0 F 93 18 102/51 09/07/21 23:45 98.4 F 88 16 122/69 09/07/21 23:04 98.2 F 78 16 115/51 09/07/21 17:15 99.0 F 107 H 18 145/65 BP Pulse Ox 09/08/21 10:30 158/70 100 09/08/21 10:15 166/76 100 09/08/21 10:00 129/90 95 09/08/21 09:53 129/90 100 09/08/21 08:03 92 L 09/08/21 05:14 94 L 09/08/21 04:15 97 09/07/21 23:45 90 L 09/07/21 23:04 96 09/07/21 17:15 96 Intake and Output 09/08/21 09/08/21 09/08/21 06:59 14:59 22:59 Intake Total 800 Output Total 500 5 Balance -500 795 Intake: IV 800 Output: Urine 500 Estimated Blood Loss 5 - Constitutional General appearance: average body habitus, cooperative, no acute distress - EENT Eyes: anicteric sclerae, edentulous ENT: hearing grossly normal - Neck Neck: no lymphadenopathy - Respiratory Respiratory: bilateral: CTA - Cardiovascular Rhythm: regular Heart sounds: normal: S1, S2 Abnormal Heart Sounds: no systolic murmur, no diastolic murmur, no rub, no S3 Gallop, no S4 Gallop, no click, no other leg Peripheral Edema: bilateral: None - Gastrointestinal General gastrointestinal: absent bowel sounds, soft - Integumentary Integumentary: normal - Neurologic Neurologic: CNII-XII intact - Musculoskeletal Musculoskeletal: strength equal bilaterally - Psychiatric drowsy post anesthesia Psychiatric: A&O x's 3, appropriate affect, intact judgment & insight Results CBC & Chem 7: 09/08/21 06:54 09/08/21 06:54 Labs: Abnormal Lab Results - Last 24 Hours (Table) 09/07/21 09/07/21 09/07/21 Range/Units 18:17 18:17 18:17 RBC 3.63 L (3.80-5.40) m/uL MCV (80.0-100.0) fL Neutrophils # (1.3-7.7) k/uL Lymphocytes # 0.6 L (1.0-4.8) k/uL APTT 136.1 H* (22.0-30.0) sec Sodium 133 L (137-145) mmol/L Carbon Dioxide (22-30) mmol/L Glucose 107 H (74-99) mg/dL Alkaline Phosphatase 136 H (38-126) U/L C-Reactive Protein 1.5 H (<1.0) mg/dL Urine Ketones (Negative) 09/07/21 09/07/21 09/08/21 Range/Units 19:25 20:00 06:54 RBC 3.73 L (3.80-5.40) m/uL MCV 102.1 H (80.0-100.0) fL Neutrophils # 8.8 H (1.3-7.7) k/uL Lymphocytes # 0.9 L (1.0-4.8) k/uL APTT 21.1 L (22.0-30.0) sec Sodium (137-145) mmol/L Carbon Dioxide (22-30) mmol/L Glucose (74-99) mg/dL Alkaline Phosphatase (38-126) U/L C-Reactive Protein (<1.0) mg/dL Urine Ketones 1+ H (Negative) 09/08/21 Range/Units 06:54 RBC (3.80-5.40) m/uL MCV (80.0-100.0) fL Neutrophils # (1.3-7.7) k/uL Lymphocytes # (1.0-4.8) k/uL APTT (22.0-30.0) sec Sodium 135 L (137-145) mmol/L Carbon Dioxide 19 L (22-30) mmol/L Glucose 104 H (74-99) mg/dL Alkaline Phosphatase (38-126) U/L C-Reactive Protein (<1.0) mg/dL Urine Ketones (Negative) Chest x-ray: report reviewed CT scan - abdomen: report reviewed CT scan - pelvis: report reviewed Assessment and Plan (1) Acute appendicitis Narrative/Plan: S/P lap appendectomy. She is doing well when seen immediately after procedure. Mgmt per Surgeon Path pending Current Visit: Yes Status: Acute Priority: High Code(s): K35.80 - UNSPECIFIED ACUTE APPENDICITIS SNOMED Code(s): 41764932 (2) Ovarian cancer Narrative/Plan: Pt is on weekly cisplatin for recurrent ov ca. Treatment held this week. She sees Primary Onc nect week before next treatment, he will see if she is cleared to resume at that time. Current Visit: No Status: Chronic Priority: Medium Code(s): C56.9 - MALIGNANT NEOPLASM OF UNSPECIFIED OVARY SNOMED Code(s): 518635795 Plan: attests: I have seen and examined pt, performed H&P, developed impression and plan of care, discussed with dictator. I agree with dictation, documented as a scribe.
[2021-09-08] MEDS: DOCUSATE 100 MG CAP PO SCH (21:29)
[2021-09-08] MEDS: FLUoxetine HCL 20 MG CAP PO SCH (21:29)
[2021-09-08] MEDS: ATORVASTATIN 10 MG TAB PO SCH (21:29)
[2021-09-09] MEDS: SODIUM CHLORIDE 0.9% 1,000 ML IV SCH ×3 (06:01→20:24)
[2021-09-09] MEDS: PIPERACILLIN-TAZOBACTAM 3.375 GM in SODIUM CHLORIDE 0.9% 100 ML IVPB SCH ×2 (06:03→16:08)
[2021-09-09 09:07] LABS: Basophils # (A) 0.01 X 10*3/uL (0.00-0.10); Basophils % (A) 0.1 %; Eosinophils # (A) 0.02 X 10*3/uL (0.04-0.35); Eosinophils % (A) 0.3 %; HCT 32.5 % (37.2-46.3); HGB 10.3 g/dL (12.0-15.0); Immature Grans, Automated 0.3 %; Lymphocytes # (A) 1.18 X 10*3/uL (0.90-5.00); Lymphocytes % (A) 15.2 %; MCH 32.4 pg (27.0-32.0); MCHC 31.7 g/dL (32.0-37.0); MCV 102.2 fL (80.0-97.0); Mean Platelet Volume 10.1 fL (9.5-12.2); Monocytes # (A) 0.47 X 10*3/uL (0.20-1.00); Monocytes % (A) 6.1 %; NRBC Per 100 WBC 0 /100 WBCS (0.0-0.0); Neutrophils # (A) 6.06 X 10*3/uL (1.80-7.70); Platelet Count 133 X 10*3/uL (140-440); RBC 3.18 X 10*6/uL (4.10-5.20); RDW 13.5 % (11.5-14.5); WBC 7.76 X 10*3/uL (4.50-10.00)
[2021-09-09] MEDS: PANTOPRAZOLE 40 MG/10 ML VIAL IV SCH (09:07)
[2021-09-09] MEDS: FLUoxetine HCL 20 MG CAP PO SCH ×2 (09:08→20:24)
[2021-09-09] MEDS: HEPARIN SODIUM,PORCINE/PF 5,000 UNIT/0.5 ML SYRINGE SQ SCH ×2 (09:08→16:09)
[2021-09-09] MEDS: DOCUSATE 100 MG CAP PO SCH ×2 (09:08→20:24)
[2021-09-09] MEDS: CYANOCOBALAMIN 500 MCG TAB PO SCH (09:08)
[2021-09-09] MEDS: ASCORBIC ACID 500 MG TAB PO SCH (09:08)
[2021-09-09 09:42] LABS: African American GFR (CKD) 61.6 (60.0-200.0); Anion Gap 12.3 mmol/L (10.00-18.00); BUN/Creat Ratio 9.1 Ratio (12.00-20.00); Blood Urea Nitrogen 9.1 mg/dL (9.0-27.0); Calcium 9.2 mg/dL (8.7-10.3); Carbon Dioxide 17.7 mmol/L (20.0-27.5); Non-African American GFR(CKD) 53.2 (60.0-200.0); Potassium 4.2 mmol/L (3.5-5.5)
[2021-09-09] MEDS ORDERED: BENZOCAINE/MENTHOL LOZENG 1 EACH LOZENGE MUCOUS MEM PRN (10:12)
--- NOTE | 2021-09-09 11:07 | P.PN ---
Subjective Progress Note Date: 09/09/21 Principal diagnosis: ov ca, laproscopic surgery for appendicitis In f/u today pt has some pain with ambulating, no fever, nausea or cough. Abd distension is persistent, not progressive at this time. Objective - Vital Signs Vital signs: Vital Signs Temp 97.7 F 09/09/21 04:09 Pulse 62 09/09/21 04:09 Resp 18 09/09/21 04:09 BP 126/56 09/09/21 04:09 Pulse Ox 92 L 09/09/21 04:09 Intake & Output 09/08/21 09/09/21 09/09/21 18:59 06:59 18:59 Intake Total 3200 1500 Output Total 5 Balance 3195 1500 Intake: IV 800 Intake, IV Titration 1800 1500 Amount Sodium Chloride 0.9% 1, 1800 1500 000 ml @ 125 mls/hr IV . Q8H MARGARITA Rx#:[id number] Oral 600 Output: Estimated Blood Loss 5 Other: # Voids 3 - Constitutional General appearance: Present: average body habitus, cooperative, no acute distress - EENT EENT Comment(s): dry mucus membranes Eyes: Present: anicteric sclerae, EOMI ENT: Present: hearing grossly normal - Respiratory Respiratory: bilateral: CTA - Cardiovascular Rhythm: regular Heart sounds: normal: S1, S2 Abnormal Heart Sounds: Absent: systolic murmur, diastolic murmur, rub, S3 Gallop, S4 Gallop, click, other - Peripheral edema leg Peripheral Edema: bilateral: Trace - Gastrointestinal General gastrointestinal: Present: decreased bowel sounds, distended, soft, tenderness - Integumentary Integumentary: Present: normal - Neurologic Neurologic: Present: CNII-XII intact - Musculoskeletal Musculoskeletal: Present: generalized weakness, strength equal bilaterally - Psychiatric Psychiatric: Present: A&O x's 3, appropriate affect, intact judgment & insight - Labs CBC & Chem 7: 09/09/21 06:00 09/09/21 06:00 Labs: Abnormal Lab Results - Last 24 Hours (Table) 09/09/21 09/09/21 Range/Units 06:00 06:00 RBC 3.18 L (4.10-5.20) X 10*6/uL Hgb 10.3 L (12.0-15.0) g/dL Hct 32.5 L (37.2-46.3) % MCV 102.2 H (80.0-97.0) fL MCH 32.4 H (27.0-32.0) pg MCHC 31.7 L (32.0-37.0) g/dL Plt Count 133 L (140-440) X 10*3/uL Eosinophils # 0.02 L (0.04-0.35) X 10*3/uL Chloride 111 H (96-109) mmol/L Carbon Dioxide 17.7 L (20.0-27.5) mmol/L Est GFR (CKD-EPI)NonAf 53.2 L (60.0-200.0) BUN/Creatinine Ratio 9.10 L (12.00-20.00) Ratio Microbiology - Last 24 Hours (Table) 09/07/21 22:05 Blood Culture - Preliminary Blood No Growth after 24 hours 09/07/21 22:20 Blood Culture - Preliminary Blood No Growth after 24 hours Assessment and Plan (1) Acute appendicitis Narrative/Plan: S/P lap appendectomy. She is doing well today. discussed case with Surgical [employer]. Some post op pain control. Movement encouraged. Mgmt per Surgeon Path pending Current Visit: Yes Status: Acute Priority: High Code(s): K35.80 - UNSPECIFIED ACUTE APPENDICITIS SNOMED Code(s): 25120343 (2) Ovarian cancer Narrative/Plan: Pt is on weekly cisplatin for recurrent ov ca. Treatment held this week-appt cancelled for pt. She sees Primary Onc next week-appt in discharge plan- before next treatment, he will see if she is cleared to resume at that time. Pt asked for a [id number] appropriate in the post op setting, level can be falsely elevated. This will be drawn at her appt next week. She verbalized understanding. Current Visit: No Status: Chronic Priority: Medium Code(s): C56.9 - MALIGNANT NEOPLASM OF UNSPECIFIED OVARY SNOMED Code(s): 418571316
[2021-09-09] MEDS: ACETAMINOPHEN TAB 500 MG TAB PO SCH ×2 (14:00→18:19)
[2021-09-09] MEDS: KETOROLAC 15 MG/ML 1 ML VIAL IVP SCH ×2 (14:01→18:18)
--- NOTE | 2021-09-09 14:44 | P.PN ---
<Danitza Fletcher - Last Filed: 09/09/21 14:39> Subjective Progress Note Date: 09/09/21 CHIEF COMPLAINT: Acute appendicitis HISTORY OF PRESENT ILLNESS: Postop day #1 status post laparoscopic appendectomy. Patient complaining of abdominal pain as well as aches and pains throughout the body. Due to patient's abdominal pain she did not feel like walking or eating. She denies any flatus. Denies any nausea or vomiting. Reports poor oral intake. She reports that she didn't like the way the Ultram or the Dilaudid made her feel. Afebrile. WBC 7.76 hemoglobin 10.3 platelets 133 creatinine 1.0 PHYSICAL EXAM: VITAL SIGNS: Reviewed. GENERAL: Well-developed in no acute distress. HEENT: No sclera icterus. Extraocular movements grossly intact. Moist buccal mucosa. Head is atraumatic, normocephalic. ABDOMEN: Soft. Mildly distended. Incision sites clean dry and intact NEUROLOGIC: Alert and oriented. Cranial nerves II through XII grossly intact. ASSESSMENT: 1. Acute appendicitis status post laparoscopic appendectomy 2. History of ovarian cancer. Chemotherapy currently on hold PLAN: -Add Toradol 30 mg IV every 6 hours scheduled for pain -Add Tylenol 1000 mg by mouth every 6 hours scheduled for pain -Continue clear liquid diet -Encourage patient to ambulate -Continue ice packs as needed -Continue antibiotics -Encourage patient to ambulate. Also will consult physical therapy to help with ambulation -Encourage patient to use incentive spirometer -GI prophylaxis Protonix and DVT prophylaxis subcu heparin Physician Digital Learning Platforms Manager note has been reviewed by physician. Signing provider agrees with the documented findings, assessment, and plan of care. Objective - Vital Signs Vital signs: Vital Signs Temp 97.4 F L 09/09/21 13:00 Pulse 70 09/09/21 13:00 Resp 18 09/09/21 13:00 BP 137/80 09/09/21 13:00 Pulse Ox 97 09/09/21 13:00 Intake & Output 09/08/21 09/09/21 09/09/21 18:59 06:59 18:59 Intake Total 3200 1500 Output Total 5 Balance 3195 1500 Intake: IV 800 Intake, IV Titration 1800 1500 Amount Sodium Chloride 0.9% 1, 1800 1500 000 ml @ 125 mls/hr IV . Q8H [facility] Rx#:[id number] Oral 600 Output: Estimated Blood Loss 5 Other: # Voids 3 - Labs CBC & Chem 7: 09/09/21 06:00 09/09/21 06:00 Labs: Abnormal Lab Results - Last 24 Hours (Table) 09/09/21 09/09/21 Range/Units 06:00 06:00 RBC 3.18 L (4.10-5.20) X 10*6/uL Hgb 10.3 L (12.0-15.0) g/dL Hct 32.5 L (37.2-46.3) % MCV 102.2 H (80.0-97.0) fL MCH 32.4 H (27.0-32.0) pg MCHC 31.7 L (32.0-37.0) g/dL Plt Count 133 L (140-440) X 10*3/uL Eosinophils # 0.02 L (0.04-0.35) X 10*3/uL Chloride 111 H (96-109) mmol/L Carbon Dioxide 17.7 L (20.0-27.5) mmol/L Est GFR (CKD-EPI)NonAf 53.2 L (60.0-200.0) BUN/Creatinine Ratio 9.10 L (12.00-20.00) Ratio Microbiology - Last 24 Hours (Table) 09/07/21 22:05 Blood Culture - Preliminary Blood No Growth after 24 hours 09/07/21 22:20 Blood Culture - Preliminary Blood No Growth after 24 hours <Kasi Martinez - Last Filed: 09/09/21 16:19> Subjective I have personally seen and examined the patient, reviewed the [employer]OOFER /PAs history, exam and MDM and agree with the assessment and plan as written. Based on total visit time, I have performed more than 50% of the visit. As above: Patient complaining of some abdominal bloating. No flatus. Patient with anticipated adynamic ileus after appendicitis. Will switch to inpatient stay. Patient will likely be her through . Continue analgesics. Continue increasing activity. Continue IV antibiotics. Objective - Vital Signs Vital signs: Vital Signs Temp 97.4 F L 09/09/21 13:00 Pulse 70 09/09/21 13:00 Resp 18 09/09/21 13:00 BP 137/80 09/09/21 13:00 Pulse Ox 97 09/09/21 13:00 Intake & Output 09/08/21 09/09/21 09/09/21 18:59 06:59 18:59 Intake Total 3200 1500 Output Total 5 Balance 3195 1500 Intake: IV 800 Intake, IV Titration 1800 1500 Amount Sodium Chloride 0.9% 1, 1800 1500 000 ml @ 125 mls/hr IV . Q8H [facility] Rx#:[id number] Oral 600 Output: Estimated Blood Loss 5 Other: # Voids 3 - Labs CBC & Chem 7: 09/09/21 06:00 09/09/21 06:00 Labs: Abnormal Lab Results - Last 24 Hours (Table) 09/09/21 09/09/21 Range/Units 06:00 06:00 RBC 3.18 L (4.10-5.20) X 10*6/uL Hgb 10.3 L (12.0-15.0) g/dL Hct 32.5 L (37.2-46.3) % MCV 102.2 H (80.0-97.0) fL MCH 32.4 H (27.0-32.0) pg MCHC 31.7 L (32.0-37.0) g/dL Plt Count 133 L (140-440) X 10*3/uL Eosinophils # 0.02 L (0.04-0.35) X 10*3/uL Chloride 111 H (96-109) mmol/L Carbon Dioxide 17.7 L (20.0-27.5) mmol/L Est GFR (CKD-EPI)NonAf 53.2 L (60.0-200.0) BUN/Creatinine Ratio 9.10 L (12.00-20.00) Ratio Microbiology - Last 24 Hours (Table) 09/07/21 22:05 Blood Culture - Preliminary Blood No Growth after 24 hours 09/07/21 22:20 Blood Culture - Preliminary Blood No Growth after 24 hours Assessment and Plan (1) Acute appendicitis Current Visit: Yes Status: Acute Priority: High Code(s): K35.80 - UNSPECIFIED ACUTE APPENDICITIS SNOMED Code(s): 48568982
[2021-09-09] MEDS ORDERED: BENZOCAINE SPRAY 1 CAN MUCOUS MEM PRN (16:10)
--- NOTE | 2021-09-09 18:10 | P.PN ---
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 She presented to the hospital on 09/07/21 with a chief complaint of abdominal pain, nausea, vomiting, and diarrhea. She underwent full evaluation in the emergency department. X-ray negative for acute cardiopulmonary process. EKG showing normal sinus rhythm at 88 bpm with no noted T-wave or ST abnormality showing no signs of acute ischemia. CT abdomen and pelvis revealed a dilated appendix with surrounding inflammatory changes consistent with acute appendicitis. Labs drawn revealing mild hyponatremia with sodium of 133 and slightly elevated alkaline phosphatase of 136 and a CRP of 1.5. Troponin normal findings at less than 0.012. Urinalys is negative for protein, blood, or infection. Patient was admitted under general surgery team and underwent a laparoscopic appendectomy earlier today. We were consulted for continued medical management throughout her hospitalization. Physical exam: Patient seen and fully evaluated at bedside this morning. She is postoperative day 1. She was sitting up in the chair and appeared to be doing well. Patient reports overall diffuse pain throughout her abdomen but states it is currently controlled with current pain medication regimen. She denies having any nausea or vomiting. She is tolerating clear liquid diet. She denies passing any flatus or having bowel movement. Patient reports urinating without difficulties and denies having any chest pain, palpitations, shortness of breath, or any other complaints at this time. Patient's at bedside visiting. Morning labs reviewed. Vital signs reviewed and stable. General: Nontoxic, no distress and appears stated age. Derm: Skin warm and dry, normal coloration for ethnicity. Laparoscopic incisions to the abdomen well approximated and intact with no noted bleeding or drainage. Head: Atraumatic, normocephalic and symmetric. Eyes: EOMs intact, no lid lag, and anicteric sclera Mouth: no lip lesions, mucus membranes moist Cardiovascular: regular rate and rhythm with normal S1S2, no murmur, positive posterior tibial pulses bilaterally, and cap refill < 2 seconds. Lungs: Respirations even, regular, and unlabored on room air. Lungs CTA bilaterally, no rhonchi, no rales, no wheezing, and no accessory muscle usage. Abdominal: soft distended, no guarding, no appreciable organomegaly. Laparoscopic incisions to abdomen well approximated intact with no noted drainage or bleeding. Ext: ROM intact. No gross muscle atrophy, no edema, no contractures Neuro: Speech clear, face symmetrical and CN II-XII grossly intact with no noted focal neuro deficits Psych: Alert and oriented to person, place, time, and situation. Appropriate and pleasant affect. Assessment and Plan of Care: Abdominal pain with intractable nausea, vomiting, and diarrhea Acute appendicitis Status post appendectomy -Patient underwent laparoscopic surgery with Dr. Martinez 09/08/21 -Symptomatic care and pain management. -Clear liquid diet and may advance as directed by general surgery team. -DVT prophylaxis with heparin -Symptomatic care and pain management -Encourage use of incentive spirometry 10-15 times hourly while awake. -Continue IV antibiotics Zosyn until further directed by general surgery team. Acute blood loss anemia -Expected surgical outcome with hemoglobin of 10.3, stable. -We will continue to monitor with repeat a.m. labs. Hyponatremia, resolved with IV fluids Depression and anxiety -Continue daily medication regimen with fluoxetine and alprazolam Hyperlipidemia -Continue daily medication regimen with atorvastatin 10 mg nightly. Thank you for allowing us to participate in the care of this pleasant patient. Do not hesitate to contact us with questions. Someone can be reached from the [facility] hospitalist group all hours of the day at [phone] or via [employer]. Objective - Vital Signs Vital signs: Vital Signs Temp 97.7 F 09/09/21 04:09 Pulse 62 09/09/21 04:09 Resp 18 09/09/21 04:09 BP 126/56 09/09/21 04:09 Pulse Ox 92 L 09/09/21 04:09 Intake & Output 09/08/21 09/09/21 09/09/21 18:59 06:59 18:59 Intake Total 3200 1500 Output Total 5 Balance 3195 1500 Intake: IV 800 Intake, IV Titration 1800 1500 Amount Sodium Chloride 0.9% 1, 1800 1500 000 ml @ 125 mls/hr IV . Q8H [facility] Rx#:[id number] Oral 600 Output: Estimated Blood Loss 5 Other: # Voids 3 - Labs CBC & Chem 7: 09/09/21 06:00 09/09/21 06:00 Labs: Abnormal Lab Results - Last 24 Hours (Table) 09/08/21 09/08/21 Range/Units 06:54 06:54 RBC 3.73 L (3.80-5.40) m/uL MCV 102.1 H (80.0-100.0) fL Neutrophils # 8.8 H (1.3-7.7) k/uL Lymphocytes # 0.9 L (1.0-4.8) k/uL Sodium 135 L (137-145) mmol/L Carbon Dioxide 19 L (22-30) mmol/L Glucose 104 H (74-99) mg/dL Microbiology - Last 24 Hours (Table) 09/07/21 22:05 Blood Culture - Preliminary Blood No Growth after 24 hours 09/07/21 22:20 Blood Culture - Preliminary Blood No Growth after 24 hours <Radha Garibay - Last Filed: 09/09/21 18:45> Subjective I reviewed the documentation as provided by the EDMOND above, who is the original author of this note. I agree with the documented assessment and plan, with the following changes: None Objective - Vital Signs Vital signs: Vital Signs Temp 97.4 F L 09/09/21 13:00 Pulse 70 09/09/21 13:00 Resp 18 09/09/21 13:00 BP 137/80 09/09/21 13:00 Pulse Ox 97 09/09/21 13:00 Intake & Output 09/08/21 09/09/21 09/09/21 18:59 06:59 18:59 Intake Total 3200 1500 1040 Output Total 5 Balance 3195 1500 1040 Intake: IV 800 Intake, IV Titration 1800 1500 Amount Sodium Chloride 0.9% 1, 1800 1500 000 ml @ 125 mls/hr IV . Q8H [facility] Rx#:[id number] Oral 600 1040 Output: Estimated Blood Loss 5 Other: # Voids 3 3 - Labs CBC & Chem 7: 09/09/21 06:00 09/09/21 06:00 Labs: Abnormal Lab Results - Last 24 Hours (Table) 09/09/21 09/09/21 Range/Units 06:00 06:00 RBC 3.18 L (4.10-5.20) X 10*6/uL Hgb 10.3 L (12.0-15.0) g/dL Hct 32.5 L (37.2-46.3) % MCV 102.2 H (80.0-97.0) fL MCH 32.4 H (27.0-32.0) pg MCHC 31.7 L (32.0-37.0) g/dL Plt Count 133 L (140-440) X 10*3/uL Eosinophils # 0.02 L (0.04-0.35) X 10*3/uL Chloride 111 H (96-109) mmol/L Carbon Dioxide 17.7 L (20.0-27.5) mmol/L Est GFR (CKD-EPI)NonAf 53.2 L (60.0-200.0) BUN/Creatinine Ratio 9.10 L (12.00-20.00) Ratio Microbiology - Last 24 Hours (Table) 09/07/21 22:05 Blood Culture - Preliminary Blood No Growth after 24 hours 09/07/21 22:20 Blood Culture - Preliminary Blood No Growth after 24 hours
[2021-09-09] MEDS: ATORVASTATIN 10 MG TAB PO SCH (20:24)
[2021-09-10] MEDS: ACETAMINOPHEN TAB 500 MG TAB PO SCH ×5 (00:31→23:22)
[2021-09-10] MEDS: KETOROLAC 15 MG/ML 1 ML VIAL IVP SCH ×5 (00:32→23:22)
[2021-09-10] MEDS: HEPARIN SODIUM,PORCINE/PF 5,000 UNIT/0.5 ML SYRINGE SQ SCH ×4 (00:33→23:22)
[2021-09-10] MEDS: PIPERACILLIN-TAZOBACTAM 3.375 GM in SODIUM CHLORIDE 0.9% 100 ML IVPB SCH ×4 (00:33→23:23)
[2021-09-10] MEDS: SODIUM CHLORIDE 0.9% 1,000 ML IV SCH ×2 (03:04→15:36)
[2021-09-10] MEDS: CYANOCOBALAMIN 500 MCG TAB PO SCH (08:59)
[2021-09-10] MEDS: FLUoxetine HCL 20 MG CAP PO SCH ×2 (08:59→20:59)
[2021-09-10] MEDS: ASCORBIC ACID 500 MG TAB PO SCH (08:59)
[2021-09-10] MEDS: DOCUSATE 100 MG CAP PO SCH ×2 (08:59→20:59)
[2021-09-10] MEDS: PANTOPRAZOLE 40 MG/10 ML VIAL IV SCH (09:00)
[2021-09-10 10:32] LABS: HCT 30.8 % (37.2-46.3); HGB 9.8 g/dL (12.0-15.0); MCH 32.3 pg (27.0-32.0); MCHC 31.8 g/dL (32.0-37.0); MCV 101.7 fL (80.0-97.0); Mean Platelet Volume 9.9 fL (9.5-12.2); NRBC Per 100 WBC 0 /100 WBCS (0.0-0.0); Platelet Count 114 X 10*3/uL (140-440); RBC 3.03 X 10*6/uL (4.10-5.20)
[2021-09-10 10:41] LABS: African American GFR (CKD) 54.9 (60.0-200.0); Albumin 3.2 g/dL (3.8-4.9); Albumin/Globulin Ratio 1.68 (1.60-3.17); Anion Gap 8.9 mmol/L (10.00-18.00); BUN/Creat Ratio 7.18 Ratio (12.00-20.00); Blood Urea Nitrogen 7.9 mg/dL (9.0-27.0); Calcium 9.1 mg/dL (8.7-10.3); Carbon Dioxide 19.1 mmol/L (20.0-27.5); Globulin 1.9 g/dL (1.6-3.3); Non-African American GFR(CKD) 47.4 (60.0-200.0); Total Bilirubin 0.4 mg/dL (0.30-1.20); Total Protein 5.1 g/dL (6.2-8.2)
--- NOTE | 2021-09-10 12:53 | P.PN ---
Subjective Progress Note Date: 09/10/21 CHIEF COMPLAINT: Acute appendicitis HISTORY OF PRESENT ILLNESS: Postop day #2 status post laparoscopic appendectomy. Patient reports that her pain was worse during the night. Patient complaining of abdominal pain as well as aches and pains throughout her legs and up into her shoulders. She reports the pain is better this morning than it was last night. She did have flatus. Denies any bowel movement. Patient walked the [place] to the nurses Station 6 times. The walking possibly is contributing to some of her leg pain. She is tolerating regular diet. Afebrile. WBC is 3.40 hemoglobin 9.8 platelets 114 sodium 140 potassium 4.0 creatinine 1. PHYSICAL EXAM: VITAL SIGNS: Reviewed. GENERAL: Well-developed in no acute distress. HEENT: No sclera icterus. Extraocular movements grossly intact. Moist buccal mucosa. Head is atraumatic, normocephalic. ABDOMEN: Soft. Mildly distended. Incision sites clean dry and intact NEUROLOGIC: Alert and oriented. Cranial nerves II through XII grossly intact. ASSESSMENT: 1. Acute appendicitis status post laparoscopic appendectomy 2. Anticipated adynamic ileus after appendicitis 3. History of ovarian cancer. Chemotherapy currently on hold PLAN: -Continue pain management -Continue regular diet -Encourage patient to ambulate -Continue ice packs as needed -Continue antibiotics -Encourage patient to ambulate -Encourage patient to use incentive spirometer -GI prophylaxis Protonix and DVT prophylaxis subcu heparin Physician Rounder Hand note has been reviewed by physician. Signing provider agrees with the documented findings, assessment, and plan of care. Objective - Vital Signs Vital signs: Vital Signs Temp 97.7 F 09/10/21 05:32 Pulse 73 09/10/21 05:32 Resp 16 09/10/21 05:32 BP 144/87 09/10/21 05:32 Pulse Ox 94 L 09/10/21 05:32 Intake & Output 09/09/21 09/10/21 09/10/21 18:59 06:59 18:59 Intake Total 1040 Balance 1040 Intake: Oral 1040 Other: # Voids 3 4 - Labs CBC & Chem 7: 09/10/21 06:28 09/10/21 06:28 Labs: Abnormal Lab Results - Last 24 Hours (Table) 09/10/21 09/10/21 Range/Units 06:28 06:28 WBC 3.40 L (4.50-10.00) X 10*3/uL RBC 3.03 L (4.10-5.20) X 10*6/uL Hgb 9.8 L (12.0-15.0) g/dL Hct 30.8 L (37.2-46.3) % MCV 101.7 H (80.0-97.0) fL MCH 32.3 H (27.0-32.0) pg MCHC 31.8 L (32.0-37.0) g/dL Plt Count 114 L (140-440) X 10*3/uL Chloride 112 H (96-109) mmol/L Carbon Dioxide 19.1 L (20.0-27.5) mmol/L Anion Gap 8.90 L (10.00-18.00) mmol/L BUN 7.9 L (9.0-27.0) mg/dL Est GFR (CKD-EPI)AfAm 54.9 L (60.0-200.0) Est GFR (CKD-EPI)NonAf 47.4 L (60.0-200.0) BUN/Creatinine Ratio 7.18 L (12.00-20.00) Ratio Total Protein 5.1 L (6.2-8.2) g/dL Albumin 3.2 L (3.8-4.9) g/dL Microbiology - Last 24 Hours (Table) 09/07/21 22:20 Blood Culture - Preliminary Blood No Growth after 48 hours 09/07/21 22:05 Blood Culture - Preliminary Blood No Growth after 48 hours
--- NOTE | 2021-09-10 17:56 | P.PN ---
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 She presented to the hospital on 09/07/21 with a chief complaint of abdominal pain, nausea, vomiting, and diarrhea. She underwent full evaluation in the emergency department. X-ray negative for acute cardiopulmonary process. EKG showing normal sinus rhythm at 88 bpm with no noted T-wave or ST abnormality showing no signs of acute ischemia. CT abdomen and pelvis revealed a dilated appendix with surrounding inflammatory changes consistent with acute appendicitis. Labs drawn revealing mild hyponatremia with sodium of 133 and slightly elevated alkaline phosphatase of 136 and a CRP of 1.5. Troponin normal findings at less than 0.012. Urinalysis negative for protein, blood, or infection. Patient was admitted under general surgery team and underwent a laparoscopic appendectomy earlier today. We were consulted for continued medical management throughout her hospitalization. Physical exam: Patient seen and fully evaluated at bedside this morning. She is postoperative day 2. She was sitting up in the chair and appeared to be doing well. Patient reports her pain is worse than yesterday morning. She stated that she did a lot of walking around yesterday with her and ambulating in room and hallway. Patient reports she is passing flatus and denies postoperative bowel movement. She is tolerating oral intake with a full liquid diet and continues to deny having any nausea or vomiting. Vital signs reviewed and stable. General: Nontoxic, no distress and appears stated age. Derm: Skin warm and dry, normal coloration for ethnicity. Laparoscopic incisions to the abdomen well approximated and intact with no noted bleeding or drainage. Head: Atraumatic, normocephalic and symmetric. Eyes: EOMs intact, no lid lag, and anicteric sclera Mouth: no lip lesions, mucus membranes moist Cardiovascular: regular rate and rhythm with normal S1S2, no murmur, positive posterior tibial pulses bilaterally, and cap refill < 2 seconds. Lungs: Respirations even, regular, and unlabored on room air. Lungs CTA bilaterally, no rhonchi, no rales, no wheezing, and no accessory muscle usage. Abdominal: soft distended, no guarding, no appreciable organomegaly. Laparoscopic incisions to abdomen well approximated intact with no noted drainage or bleeding. Ext: ROM intact. No gross muscle atrophy, no edema, no contractures Neuro: Speech clear, face symmetrical and CN II-XII grossly intact with no noted focal neuro deficits Psych: Alert and oriented to person, place, time, and situation. Appropriate and pleasant affect. Assessment and Plan of Care: Abdominal pain with intractable nausea, vomiting, and diarrhea Acute appendicitis Status post appendectomy -Patient underwent laparoscopic appendectomy with Dr. Martinez 09/08/21 -Symptomatic care and pain management. -Clear liquid diet and may advance as directed by general surgery team. -DVT prophylaxis with heparin -Symptomatic care and pain management -Encourage use of incentive spirometry 10-15 times hourly while awake. -Continue IV antibiotics Zosyn until further directed by general surgery team. Acute blood loss anemia, stable -We will continue to monitor with repeat a.m. labs. Hyponatremia, resolved with IV fluids Depression and anxiety -Continue daily medication regimen with fluoxetine and alprazolam Hyperlipidemia -Continue daily medication regimen with atorvastatin 10 mg nightly. Thank you for allowing us to participate in the care of this pleasant patient. Do not hesitate to contact us with questions. Someone can be reached from the [facility] hospitalist group all hours of the day at [phone] or via [employer]. I reviewed the documentation as provided by the EDMOND above, who is the original author of this note. I agree with the documented assessment and plan, with the following changes: None Objective - Vital Signs Vital signs: Vital Signs Temp 97.7 F 09/10/21 05:32 Pulse 73 09/10/21 05:32 Resp 16 09/10/21 05:32 BP 144/87 09/10/21 05:32 Pulse Ox 94 L 09/10/21 05:32 Intake & Output 09/09/21 09/10/21 09/10/21 18:59 06:59 18:59 Intake Total 1040 Balance 1040 Intake: Oral 1040 Other: # Voids 3 4 - Labs CBC & Chem 7: 09/10/21 06:28 09/10/21 06:28 Labs: Abnormal Lab Results - Last 24 Hours (Table) 09/09/21 09/09/21 Range/Units 06:00 06:00 RBC 3.18 L (4.10-5.20) X 10*6/uL Hgb 10.3 L (12.0-15.0) g/dL Hct 32.5 L (37.2-46.3) % MCV 102.2 H (80.0-97.0) fL MCH 32.4 H (27.0-32.0) pg MCHC 31.7 L (32.0-37.0) g/dL Plt Count 133 L (140-440) X 10*3/uL Eosinophils # 0.02 L (0.04-0.35) X 10*3/uL Chloride 111 H (96-109) mmol/L Carbon Dioxide 17.7 L (20.0-27.5) mmol/L Est GFR (CKD-EPI)NonAf 53.2 L (60.0-200.0) BUN/Creatinine Ratio 9.10 L (12.00-20.00) Ratio Microbiology - Last 24 Hours (Table) 09/07/21 22:20 Blood Culture - Preliminary Blood No Growth after 48 hours 09/07/21 22:05 Blood Culture - Preliminary Blood No Growth after 48 hours
[2021-09-10] MEDS: ATORVASTATIN 10 MG TAB PO SCH (20:59)
[2021-09-11] MEDS: KETOROLAC 15 MG/ML 1 ML VIAL IVP SCH ×2 (05:12→11:27)
[2021-09-11] MEDS: ACETAMINOPHEN TAB 500 MG TAB PO SCH ×2 (05:12→11:27)
[2021-09-11] MEDS: PIPERACILLIN-TAZOBACTAM 3.375 GM in SODIUM CHLORIDE 0.9% 100 ML IVPB SCH (05:13)
[2021-09-11 05:58] VITALS: TEMP 97.4
[2021-09-11] MEDS: PANTOPRAZOLE 40 MG/10 ML VIAL IV SCH (08:11)
[2021-09-11] MEDS: HEPARIN SODIUM,PORCINE/PF 5,000 UNIT/0.5 ML SYRINGE SQ SCH (08:12)
[2021-09-11] MEDS: FLUoxetine HCL 20 MG CAP PO SCH (08:12)
[2021-09-11] MEDS: DOCUSATE 100 MG CAP PO SCH (08:12)
[2021-09-11] MEDS: CYANOCOBALAMIN 500 MCG TAB PO SCH (08:12)
[2021-09-11 08:55] LABS: Basophils # (A) 0.01 X 10*3/uL (0.00-0.10); Basophils % (A) 0.4 %; Eosinophils # (A) 0.07 X 10*3/uL (0.04-0.35); Eosinophils % (A) 2.6 %; HCT 30.6 % (37.2-46.3); Immature Grans, Automated 0.4 %; Lymphocytes # (A) 1.26 X 10*3/uL (0.90-5.00); Lymphocytes % (A) 46.3 %; MCH 32.5 pg (27.0-32.0); MCHC 32.7 g/dL (32.0-37.0); MCV 99.4 fL (80.0-97.0); Mean Platelet Volume 10.1 fL (9.5-12.2); Monocytes # (A) 0.22 X 10*3/uL (0.20-1.00); Monocytes % (A) 8.1 %; NRBC Per 100 WBC 0 /100 WBCS (0.0-0.0); Neutrophils # (A) 1.15 X 10*3/uL (1.80-7.70); Neutrophils % (A) 42.2 %; Platelet Count 138 X 10*3/uL (140-440); RBC 3.08 X 10*6/uL (4.10-5.20); WBC 2.72 X 10*3/uL (4.50-10.00)
[2021-09-11] MEDS: SODIUM CHLORIDE 0.9% 1,000 ML IV SCH (11:09)
[2021-09-11 11:19] VITALS: BP 138/84; PULSE 61; RESP 18
--- NOTE | 2021-09-11 15:04 | P.DS ---
Providers Date of admission: 09/09/21 16:18 Expected date of discharge: 09/11/21 Attending physician: Kasi Martinez Consults: 09/07/21 21:09 Consult Physician Stat Consulting Provider: Veronique Denis Consult Reason/Comments: Patient known to you, appendicitis Do you want consulting provider notified?: Already Contacted Consult Physician Urgent Consulting Provider: Doug Vaughn Consult Reason/Comments: Medical management Do you want consulting provider notified?: Yes Primary care physician: Kendrick Willard MD Hospital Course: Discharge diagnosis 1. Acute appendicitis status post laparoscopic appendectomy 2. Anticipated adynamic ileus after appendicitis improved 3. History of ovarian cancer. Chemotherapy currently on hold Hospital course This is an 81-year-old female came to the hospital yesterday with lower abdominal pain. Patient has a pertinent history significant for ovarian cancer. Patient has been on chemotherapy intermittently since 2007. Currently undergoing chemotherapy for her recurrent ovarian cancer. She came to the hospital with abdominal pain that began in the middle of the night. Patient has had episodes of nausea and vomiting. Patient's pain is lower abdomen generalized. CAT scan was then obtained which demonstrates acute appendicitis with an appendicolith and periappendiceal inflammatory changes. T-max 99.0. Tachycardia on arrival that resolved. Patient is status post laparoscopic appendectomy. Her pain is controlled. She is up and ambulating. She's tolerating diet. She is having bowel movements. She is afebrile. Her incision sites clean dry and intact. She is stable for discharge. Please refer to chart for any further details. Physician Java Tech Lead note has been reviewed by physician. Signing provider agrees with the documented findings, assessment, and plan of care. Patient Condition at Discharge: Stable Plan - Discharge Summary New Discharge Prescriptions: New Ibuprofen [Motrin] 600 mg PO Q8HR PRN #21 tab PRN Reason: Pain Acetaminophen Tab [Tylenol] 1,000 mg PO Q6HR PRN #30 tablet PRN Reason: Pain Continue Atorvastatin [Lipitor] 10 mg PO HS FLUoxetine HCL [PROzac] 20 mg PO BID Ondansetron Odt [Zofran ODT] 8 mg PO Q6H PRN PRN Reason: Nausea Ascorbic Acid [Vitamin C] 250 mg PO DAILY ALPRAZolam [Xanax] 0.25 mg PO BID PRN PRN Reason: Anxiety Cyanocobalamin [Vitamin B-12] 500 mcg PO DAILY Discharge Medication List Atorvastatin [Lipitor] 10 mg PO HS 08/25/17 [History] ALPRAZolam [Xanax] 0.25 mg PO BID PRN 09/07/21 [History] Ascorbic Acid [Vitamin C] 250 mg PO DAILY 09/07/21 [History] Cyanocobalamin [Vitamin B-12] 500 mcg PO DAILY 09/07/21 [History] FLUoxetine HCL [PROzac] 20 mg PO BID 09/07/21 [History] Ondansetron Odt [Zofran ODT] 8 mg PO Q6H PRN 09/07/21 [History] Acetaminophen Tab [Tylenol] 1,000 mg PO Q6HR PRN #30 tablet 09/11/21 [Rx] Ibuprofen [Motrin] 600 mg PO Q8HR PRN #21 tab 09/11/21 [Rx] Follow up Appointment(s)/Referral(s): Kasi Martinez MD [Medical Doctor] - 1 Week Kendrick Willard MD [Primary Care Provider] - 1-2 days Veronique Denis MD [Family Provider] - 09/17/21 8:00 am Activity/Diet/Wound Care/Special Instructions: Activity: As tolerated. Take breaks as needed. No lifting over 10 pounds You may shower. No soaking or tub baths for 2 weeks Very light activity until you are reevaluated at your follow up appointment with your surgeon Diet: Heart healthy and carb consistent diet. Avoid salts, or foods with hidden salts such as canned or boxed foods and frozen dinners. Extra salt makes your heart work harder and traps the fluid in your body for longer. Special Instructions: Take all of your medications as directed and remember to keep all of your doctor's appointments and follow-up as needed. Chemo for the week of 09/08 held. Thank you for allowing us to participate in your care, it was truly a pleasure having you for our patient!!! Discharge Disposition: HOME SELF-CARE
--- NOTE | 2021-09-11 15:13 | P.PN ---
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 She presented to the hospital on 09/07/21 with a chief complaint of abdominal pain, nausea, vomiting, and diarrhea. She underwent full evaluation in the emergency department. X-ray negative for acute cardiopulmonary process. EKG showing normal sinus rhythm at 88 bpm with no noted T-wave or ST abnormality showing no signs of acute ischemia. CT abdomen and pelvis revealed a dilated appendix with surrounding inflammatory changes consistent with acute appendicitis. Labs drawn revealing mild hyponatremia with sodium of 133 and slightly elevated alkaline phosphatase of 136 and a CRP of 1.5. Troponin normal findings at less than 0.012. Urinalysis negative for protein, blood, or infection. Patient was admitted under general surgery team and underwent a laparoscopic appendectomy earlier today. We were consulted for continued medical management throughout her hospitalization. Physical exam: Patient seen and fully evaluated at bedside this morning. She is postoperative day 3. She was walking in the hallway with a walker, unassisted and doing well. Patient reports she is passing flatus and has had a postoperative bowel movement. Patient is tolerating oral intake and denies having any nausea or vom iting. Blood cultures showing no growth after 72 hours. Postoperative blood loss anemia stable with hemoglobin 10.0. Patient denies having any dizziness, lightheadedness, chest pain, palpitations, or any other complaints at this time. Patient medically stable for discharge once cleared by primary admitting surgery team. Vital signs reviewed and stable. General: Nontoxic, no distress and appears stated age. Derm: Skin warm and dry, normal coloration for ethnicity. Laparoscopic incisions to the abdomen well approximated and intact with no noted bleeding or drainage. Head: Atraumatic, normocephalic and symmetric. Eyes: EOMs intact, no lid lag, and anicteric sclera Mouth: no lip lesions, mucus membranes moist Cardiovascular: regular rate and rhythm with normal S1S2, no murmur, positive posterior tibial pulses bilaterally, and cap refill < 2 seconds. Lungs: Respirations even, regular, and unlabored on room air. Lungs CTA bilaterally, no rhonchi, no rales, no wheezing, and no accessory muscle usage. Abdominal: soft distended, no guarding, no appreciable organomegaly. Laparo scopic incisions to abdomen well approximated intact with no noted drainage or bleeding. Ext: ROM intact. No gross muscle atrophy, no edema, no contractures Neuro: Speech clear, face symmetrical and CN II-XII grossly intact with no noted focal neuro deficits Psych: Alert and oriented to person, place, time, and situation. Appropriate and pleasant affect. Assessment and Plan of Care: Abdominal pain with intractable nausea, vomiting, and diarrhea Acute appendicitis Status post appendectomy -Patient underwent laparoscopic appendectomy with Dr. Martinez 09/08/21 -Symptomatic care and pain management. -Patient tolerating regular diet -DVT prophylaxis with heparin -Symptomatic care and pain management -Encourage use of incentive spirometry 10-15 times hourly while awake. -Continue IV antibiotics Zosyn until further directed by general surgery team. Acute postoperative blood loss anemia, expected finding and stable Hyponatremia, resolved with IV fluids Depression and anxiety, Continue daily medication regimen with fluoxetine and alprazolam Hyperlipidemia, Continue daily medication regimen with atorvastatin 10 mg nightly. Thank you for allowing us to participate in the care of this pleasant patient. Do not hesitate to contact us with questions. Someone can be reached from the [facility] hospitalist group all hours of the day at [phone] or via [employer]. Christiano Miller NP rendered care for this patient independently, reviewed the findings and plan as documented in the note above. I did not physically speak with or examine the patient on this date. Additional Diagnosis Ovarian Cancer - last chemo 1 week ago - outpatient follow-up with Oncology Objective - Vital Signs Vital signs: Vital Signs Temp 97.4 F L 09/11/21 04:35 Pulse 68 09/11/21 04:35 Resp 20 09/11/21 04:35 BP 157/75 09/11/21 04:35 Pulse Ox 95 09/11/21 04:35 Intake & Output 09/10/21 09/11/21 09/11/21 18:59 06:59 18:59 Intake Total 150 100 Output Total 1 Balance 149 100 Intake: Intake, IV Titration 150 Amount Piperacillin-Tazobactam 3 100 .375 gm In Sodium Chloride 0.9% 100 ml @ 25 mls/hr IVPB Q8H MARGARITA Rx#: [id number] Sodium Chloride 0.9% 1, 50 000 ml @ 50 mls/hr IV . Q20H MARGARITA Rx#:[id number] Oral 100 Output: Stool 1 Other: # Voids 3 1 - Labs CBC & Chem 7: 09/11/21 05:15 09/10/21 06:28 Labs: Abnormal Lab Results - Last 24 Hours (Table) 09/10/21 09/10/21 09/11/21 Range/Units 06:28 06:28 05:15 WBC 3.40 L 2.72 L (4.50-10.00) X 10*3/uL RBC 3.03 L 3.08 L (4.10-5.20) X 10*6/uL Hgb 9.8 L 10.0 L (12.0-15.0) g/dL Hct 30.8 L 30.6 L (37.2-46.3) % MCV 101.7 H 99.4 H (80.0-97.0) fL MCH 32.3 H 32.5 H (27.0-32.0) pg MCHC 31.8 L (32.0-37.0) g/dL Plt Count 114 L 138 L (140-440) X 10*3/uL Neutrophils # 1.15 L (1.80-7.70) X 10*3/uL Chloride 112 H (96-109) mmol/L Carbon Dioxide 19.1 L (20.0-27.5) mmol/L Anion Gap 8.90 L (10.00-18.00) mmol/L BUN 7.9 L (9.0-27.0) mg/dL Est GFR (CKD-EPI)AfAm 54.9 L (60.0-200.0) Est GFR (CKD-EPI)NonAf 47.4 L (60.0-200.0) BUN/Creatinine Ratio 7.18 L (12.00-20.00) Ratio Total Protein 5.1 L (6.2-8.2) g/dL Albumin 3.2 L (3.8-4.9) g/dL Microbiology - Last 24 Hours (Table) 09/07/21 22:20 Blood Culture - Preliminary Blood No Growth after 72 hours 09/07/21 22:05 Blood Culture - Preliminary Blood No Growth after 72 hours
--- NOTE | 2021-09-11 18:53 | P.PN ---
Subjective Progress Note Date: 09/11/21 Objective - Vital Signs Vital signs: Vital Signs Temp 97.4 F L 09/11/21 11:18 Pulse 61 09/11/21 11:18 Resp 18 09/11/21 11:18 BP 138/84 09/11/21 11:18 Pulse Ox 96 09/11/21 11:18 Intake & Output 09/10/21 09/11/21 09/11/21 18:59 06:59 18:59 Intake Total 150 100 Output Total 1 Balance 149 100 Intake: Intake, IV Titration 150 Amount Piperacillin-Tazobactam 3 100 .375 gm In Sodium Chloride 0.9% 100 ml @ 25 mls/hr IVPB Q8H MARG[facility]ITA Rx#: [id number] Sodium Chloride 0.9% 1, 50 000 ml @ 50 mls/hr IV . Q20H MARGARITA Rx#:[id number] Oral 100 Output: Stool 1 Other: Voiding Method Toilet # Voids 3 1 - Constitutional General appearance: Present: no acute distress - EENT Eyes: Present: EOMI ENT: Present: hearing grossly normal, normal oropharynx - Respiratory Respiratory: bilateral: CTA - Cardiovascular Rhythm: regular Heart sounds: normal: S1, S2 - Gastrointestinal General gastrointestinal: Present: normal bowel sounds, soft Localized gastrointestinal: tender: RLQ, LLQ - Integumentary Integumentary Comment(s): abdominal incisions CDI - Neurologic Neurologic: Present: CNII-XII intact - Musculoskeletal Musculoskeletal: Present: generalized weakness, strength equal bilaterally - Psychiatric Psychiatric: Present: A&O x's 3, appropriate affect - Labs CBC & Chem 7: 09/11/21 05:15 09/10/21 06:28 Labs: Abnormal Lab Results - Last 24 Hours (Table) 09/11/21 Range/Units 05:15 WBC 2.72 L (4.50-10.00) X 10*3/uL RBC 3.08 L (4.10-5.20) X 10*6/uL Hgb 10.0 L (12.0-15.0) g/dL Hct 30.6 L (37.2-46.3) % MCV 99.4 H (80.0-97.0) fL MCH 32.5 H (27.0-32.0) pg Plt Count 138 L (140-440) X 10*3/uL Neutrophils # 1.15 L (1.80-7.70) X 10*3/uL Microbiology - Last 24 Hours (Table) 09/07/21 22:20 Blood Culture - Preliminary Blood No Growth after 72 hours 09/07/21 22:05 Blood Culture - Preliminary Blood No Growth after 72 hours Assessment and Plan (1) Acute appendicitis Narrative/Plan: the patient is progressing well post surgery. No obvious complications. Incision sites appear clean. Bowel activity has returned and she is tolerating diet. Discharge per surgical service Status: Acute Priority: High Code(s): K35.80 - UNSPECIFIED ACUTE APPENDICITIS SNOMED Code(s): 60755361 (2) Ovarian cancer Narrative/Plan: most recent chemotherapy was one week ago. Chemotherapy will be on hold until the patient is sufficiently recovered from her surgery, and clearance is obtained from the surgical service to resume treatment. Status: Chronic Priority: Medium Code(s): C56.9 - MALIGNANT NEOPLASM OF UNSPECIFIED OVARY SNOMED Code(s): 217025169 (3) Pancytopenia due to chemotherapy Narrative/Plan: mild, expected for her stage of treatment. No intervention required currently. Repeat CBC as an outpatient. Consider G-CSF if ANC falls to less than 1000, given recent surgery. Status: Acute Code(s): D61.810 - ANTINEOPLASTIC CHEMOTHERAPY INDUCED PANCYTOPENIA SNOMED Code(s): 4126382
== END 2021-09-11 16:45 | disposition home or self-care (01) | DRG 341 ==
LOC: EC 17:00 → 5NMEDONC 21:32 → OBSVTOIN 09-09 16:18
PROVIDERS: ADMIT Surgery; ATTEND Surgery
PROC: 0DTJ4ZZ Resection of Appendix, Percutaneous Endoscopic Approach (ICD-10-PCS; principal; 2021-09-08 08:30)
DX: K35.80 Unspecified acute appendicitis (principal); D61.810 Antineoplastic chemotherapy induced pancytopenia; K56.0 Paralytic ileus; C78.80 Secondary malignant neoplasm of unspecified digestive organ; C77.2 Secondary and unspecified malignant neoplasm of intra-abdominal lymph nodes; E87.1 Hypo-osmolality and hyponatremia; D62 Acute posthemorrhagic anemia; J44.9 Chronic obstructive pulmonary disease, unspecified; T45.1X5A Adverse effect of antineoplastic and immunosuppressive drugs, initial encounter; F32.A Depression, unspecified; F41.9 Anxiety disorder, unspecified; E78.5 Hyperlipidemia, unspecified; M19.90 Unspecified osteoarthritis, unspecified site; Z79.899 Other long term (current) drug therapy; Z85.43 Personal history of malignant neoplasm of ovary; Z86.73 Personal history of transient ischemic attack (TIA), and cerebral infarction without residual deficits; Z87.440 Personal history of urinary (tract) infections; Z86.69 Personal history of other diseases of the nervous system and sense organs; Z90.710 Acquired absence of both cervix and uterus; Z87.42 Personal history of other diseases of the female genital tract; Z87.19 Personal history of other diseases of the digestive system; Z87.448 Personal history of other diseases of urinary system; Z87.891 Personal history of nicotine dependence; Z98.890 Other specified postprocedural states; Z88.8 Allergy status to other drugs, medicaments and biological substances; Z88.2 Allergy status to sulfonamides; Z80.7 Family history of other malignant neoplasms of lymphoid, hematopoietic and related tissues; Z80.8 Family history of malignant neoplasm of other organs or systems; K57.90 Diverticulosis of intestine, part unspecified, without perforation or abscess without bleeding
CPT/HCPCS: 36415; 71045; 74177; 80048; 80053; 81003; 82150; 83605; 83690; 83735; 84484; 85025; 85027; 85610; 85730; 86140; 86850; 86900; 86901; 87040; 88304; 93005; 96361; 96365; 96375; 96376; 99285

== ENCOUNTER → 2021-09-16 | Outpatient (CLI) | payer MEDICARE ==
[2021-09-16 20:08] LABS: Albumin 4.1 g/dL (3.8-4.9); Albumin/Globulin Ratio 1.8 (1.60-3.17); Anion Gap 12.9 mmol/L (10.00-18.00); BUN/Creat Ratio 16.7 Ratio (12.00-20.00); Blood Urea Nitrogen 15.4 mg/dL (9.0-27.0); Calcium 10.1 mg/dL (8.7-10.3); Carbon Dioxide 21.6 mmol/L (20.0-27.5); Globulin 2.3 g/dL (1.6-3.3); Non-African American GFR(CKD) 58.7 (60.0-200.0); Potassium 4.2 mmol/L (3.5-5.5); Total Bilirubin 0.3 mg/dL (0.30-1.20); Total Protein 6.4 g/dL (6.2-8.2)
[2021-09-16 21:05] LABS: Basophils # (A) 0.01 X 10*3/uL (0.00-0.10); Basophils % (A) 0.3 %; Eosinophils # (A) 0.03 X 10*3/uL (0.04-0.35); Eosinophils % (A) 0.8 %; HGB 10.8 g/dL (12.0-15.0); Immature Grans, Automated 0.3 %; Lymphocytes # (A) 1.39 X 10*3/uL (0.90-5.00); Lymphocytes % (A) 37.9 %; MCH 32.7 pg (27.0-32.0); MCHC 32.7 g/dL (32.0-37.0); Monocytes # (A) 0.36 X 10*3/uL (0.20-1.00); Monocytes % (A) 9.8 %; NRBC Per 100 WBC 0 /100 WBCS (0.0-0.0); Neutrophils # (A) 1.87 X 10*3/uL (1.80-7.70); Neutrophils % (A) 50.9 %; Platelet Count 156 X 10*3/uL (140-440); RDW 14.5 % (11.5-14.5); WBC 3.67 X 10*3/uL (4.50-10.00)
== END | disposition home or self-care (01) ==
LOC: LABWHC1 13:59
PROVIDERS: ATTEND Internal Medicine
DX: C56.9 Malignant neoplasm of unspecified ovary (principal)
CPT/HCPCS: 36415; 80053; 85025

== ENCOUNTER → 2021-10-08 | Outpatient (CLI) | payer MEDICARE ==
--- NOTE | 2021-10-08 18:16 | XR ---
EXAMINATION TYPE: XR chest 2V DATE OF EXAM: 10/08/2021 COMPARISON: X-ray dated 09/07/2021 HISTORY: Weakness and shortness of breath. TECHNIQUE: Frontal and lateral views of the chest are obtained. FINDINGS: Suspected COPD changes. Tiny nodular infiltrates in the right lung apex, likely pleural-based. Grossl y unremarkable lungs otherwise. No sizable pleural effusion or definite pneumothorax. No cardiomegaly. Aortic atherosclerotic calcification. Right upper chest wall Port-A-Cath with the ti p is seen at the atriocaval junction. No gross aggressive bone lesion. IMPRESSION: The described right apical peripheral nodular infiltrates could represent mild pleural-based fibrotic changes however subtle nodular pulmonary infiltration at that location cannot be excluded. Recommend clinical correlation. Further CT assessment can be considered. Other findings as described above.
[2021-10-08 23:40] LABS: Basophils # (A) 0.02 X 10*3/uL (0.00-0.10); Basophils % (A) 0.3 %; Eosinophils # (A) 0.07 X 10*3/uL (0.04-0.35); Eosinophils % (A) 1.1 %; HCT 36.2 % (37.2-46.3); HGB 11.8 g/dL (12.0-15.0); Immature Grans, Automated 0.5 %; Lymphocytes # (A) 1.47 X 10*3/uL (0.90-5.00); Lymphocytes % (A) 22.3 %; MCH 33.7 pg (27.0-32.0); MCHC 32.6 g/dL (32.0-37.0); MCV 103.4 fL (80.0-97.0); Mean Platelet Volume 10.3 fL (9.5-12.2); Monocytes # (A) 0.69 X 10*3/uL (0.20-1.00); Monocytes % (A) 10.5 %; NRBC Per 100 WBC 0 /100 WBCS (0.0-0.0); Neutrophils # (A) 4.32 X 10*3/uL (1.80-7.70); Neutrophils % (A) 65.3 %; Platelet Count 183 X 10*3/uL (140-440); RDW 15.2 % (11.5-14.5)
[2021-10-08 23:45] LABS: African American GFR (CKD) 54.9 (60.0-200.0); Albumin 4.3 g/dL (3.8-4.9); Albumin/Globulin Ratio 1.59 (1.60-3.17); Anion Gap 12.9 mmol/L (10.00-18.00); BUN/Creat Ratio 12.18 Ratio (12.00-20.00); Blood Urea Nitrogen 13.4 mg/dL (9.0-27.0); Calcium 10.4 mg/dL (8.7-10.3); Carbon Dioxide 21.1 mmol/L (20.0-27.5); Globulin 2.7 g/dL (1.6-3.3); Non-African American GFR(CKD) 47.4 (60.0-200.0); Potassium 4.6 mmol/L (3.5-5.5); Total Bilirubin 0.5 mg/dL (0.30-1.20)
== END | disposition home or self-care (01) ==
LOC: LABWHC1 14:14
PROVIDERS: ATTEND Internal Medicine
DX: J06.9 Acute upper respiratory infection, unspecified (principal)
CPT/HCPCS: 36415; 71046; 80053; 85025

== ENCOUNTER → 2022-01-08 | Outpatient (CLI) | payer MEDICARE ==
--- NOTE | 2022-01-09 08:29 | MM ---
Reason for Exam: Screening (asymptomatic). Last screening mammogram was performed 12 month(s) ago. Patient History: Menarche at age 13. First Full-Term at age 27. Left ovary removed at age 67. Right ovary removed at age 67. Hysterectomy at age 46. Postmenopausal. Ovarian cancer, age 67. Estrogen for 20 years from age 45 until age 65. 1969, Excisional Biopsy on the Left side. Maternal cousin had breast cancer. Paternal aunt had breast cancer, age 50. Maternal aunt had breast cancer, age 50. Risk Values: Beatriz 5 year model risk: 2.2%. NCI Lifetime model risk: 3.3%. Prior Study Comparison: 09/22/2018 Bilateral Screening Mammogram, [facility]. 11/22/2019 Bilateral Screening Mammogram, [facility]. 01/02/2021 Bilateral Screening Mammogram, [facility]. Tissue Density: There are scattered fibroglandular densities. Findings: Analyzed By CAD. . Benign-appearing vascular calcification bilaterally is redemonstrated. Stable asymmetric prominent tissue right breast upper outer aspect adjacent to well-defined round 6 mm mass unchanged from 2018 mammogram presumed benign. Benign-appearing left axillary lymph nodes are redemonstrated. There is no suspicious group of microcalcifications or new suspicious mass in either breast. Overall Assessment: Benign, BI-RAD 2 Management: Screening Mammogram of both breasts in 1 year. A clinical breast exam by your physician is recommended on an annual basis and results should be correlated with mammographic findings. Electronically signed and approved by: Panda Oneill M.D.
== END | disposition home or self-care (01) ==
LOC: RADMAMWWP 09:22
PROVIDERS: ATTEND Internal Medicine
DX: Z12.31 Encounter for screening mammogram for malignant neoplasm of breast (principal)
CPT/HCPCS: 77063; 77067

== ENCOUNTER → 2022-02-20 | Outpatient (CLI) | payer MEDICARE ==
--- NOTE | 2022-02-20 14:18 | CT ---
EXAMINATION TYPE: CT ChestAbdPelvis w con CT DLP: 1023.1 mGycm, Automated exposure control for dose reduction was used. DATE OF EXAM: 02/20/2022 1:14 PM COMPARISON: CT chest abdomen pelvis most recent 10/10/2021, PET/CT 11/01/2020. 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 Two-dimensional cor onal and sagittal reconstructions were obtained. Contrast used:70cc mL of Isovue 300 with IV Contrast, Oral contrast used: with Oral Contrast Findings: CHEST: LUNGS/ PLEURA: No focal consolidation, pneumothorax or pleural effusion. Mild apical scarring of the lungs. AIRWAY: Patent and unremarkable. HEART: Size within normal limits. Mild coronary artery atherosclerosis. MEDIASTINUM: No gross evidence of adenopathy. VASCULATURE: No aortic aneurysm. Right chest wall [id number]-l-Dtzg with distal tip terminating at the s uperior vena cava. MUSCULOSKELETAL: No acute osseous abnormalities. SOFT TISSUES/LYMPH NODES: Unremarkable. LOWER NECK: No significant findings. ABDOMEN: ABDOMEN LIVER: Diffusely hypoattenuating parenchyma. GALLBLADDER AND BILE DUCTS: Unremarkable. PANCREAS: Unremarkable. SPLEEN: Unremarkable. ADRENAL GLANDS: Unremarkable. KIDNEYS AND URETERS: No evidence of hydronephrosis or renal calculus. Right renal cyst. PELVIS BLADDER: Unremarkable REPRODUCTIVE: Uterus and ovaries are surgically absent. No evidence of recurrent soft tissue. No lymp hadenopathy identified. ABDOMEN & PELVIS STOMACH AND BOWEL: No evidence of bowel obstruction. PERITONEUM: No evidence of pneumoperitoneum or free fluid. No evidence of omental caking. VASCULATURE: Moderate atherosclerotic calcifications are present throughout the abdominal aorta and i ts branches. MUSCULOSKELETAL: No acute osseous abnormalities LYMPH NODES: No gross evidence for lymphadenopathy. SOFT TISSUE/ABDOMINAL WALL: Unremarkable IMPRESSION: No evidence for recurrence metastatic disease.
== END | disposition home or self-care (01) ==
LOC: RADPROMAIN 11:22
PROVIDERS: ATTEND Internal Medicine Hematology & Oncology
DX: C56.9 Malignant neoplasm of unspecified ovary (principal)
CPT/HCPCS: 71260; 74177; J1642; Q9967

== ENCOUNTER → 2022-03-06 | Outpatient (CLI) | payer MEDICARE ==
--- NOTE | 2022-03-08 09:01 | PE ---
EXAMINATION TYPE: PET CT fusion skull to thigh DATE OF EXAM: 03/06/2022 COMPARISON: Prior PET CT report November 01, 2020. Most recent whole body CT February 20, 2022 and older CTs back through July 31, 2021 HISTORY: Right-sided ovarian cancer completed chemotherapy November 13, 2021 and radiation treatment Jose Maria 2020 TECHNIQUE: Following the intravenous administration of 12.3 mCi of F-18 FDG, whole body images are p erformed from the skull base to the midthigh. Images are reviewed on the computer in the coronal, ax ial, and sagittal planes. Reconstructed rotating images are created on independent workstation and r eviewed on the computer. A localization and attenuation correction CT is performed in conjunction w ith the PET scan. Blood glucose level equals 95. SCAN: Subsequent Scan FINDINGS: SKULL BASE AND NECK: No new areas of suspicious hypermetabolic uptake. Mild uptake at level of vocal cords presumed product of phonation. CHEST, MEDIASTINUM, AND HILAR REGION: No abnormal hypermetabolic uptake. ABDOMEN AND PELVIS: There is hypermetabolic 1.1 cm lesion just past aortic bifurcation consistent wit h persistent active neoplasm or adenopathy axial image 159, this is increased in size in retrospect o n most recent CT from October 10, 2021. No additional abnormal hypermetabolic masses or lymph nodes. OSSEOUS STRUCTURES: No areas of abnormal hypermetabolic uptake. OTHER CT: Right internal jugular Mediport catheter redemonstrated. Coronary artery calcifications are present. Visualized liver heterogeneously hypodense consistent with diffuse fatty infiltration. Moderate calci fied plaque of the aorta extends into branch vessels. Uterus surgically absent. A few scattered colon ic diverticula are redemonstrated. IMPRESSION: Persistent active neoplasm or abnormal adenopathy just past the aortic bifurcation in the lower abdomen.
== END | disposition home or self-care (01) ==
LOC: RADPETMAIN 15:58
PROVIDERS: ATTEND Radiology Radiation Oncology
DX: C56.1 Malignant neoplasm of right ovary (principal)
CPT/HCPCS: 78815; A9552

== ENCOUNTER → 2022-07-10 | Outpatient (CLI) | payer MEDICARE ==
--- NOTE | 2022-07-12 22:09 | PE ---
EXAMINATION TYPE: PET CT fusion skull to thigh DATE OF EXAM: 07/10/2022 CLINICAL INDICATION:Female, 81 years old with history of C56.1 MALIGNANT NEOPLASM OF RIGHT OVARY; TECHNIQUE: Following the intravenous administration of 11.28 mCi of F-18 FDG, whole body images are performed from the skull base to the midthigh. Images are reviewed on the computer in the coronal, axial, and sagittal planes. Reconstructed rotating images are created on independent workstation and reviewed on the computer. A non-contrast CT is performed in conjunction with the PET scan. Glucose level 85 mg/dL COMPARISON: CT 02/20/2022, PET/CT 03/06/2022. FINDINGS: Mediastinal SUV mean is 1.97. Hepatic parenchyma SUV mean is 2.6. SKULL BASE AND NECK: No suspicious radiotracer activity. CHEST, MEDIASTINUM, AND HILAR REGION: No suspicious radiotracer activity. ABDOMEN AND PELVIS: * Lymph node in the retroperitoneum of abnormal FDG activity on prior near the aortic bifurcation no w measures 6 mm, previously 11 mm and max SUV of 1.5 previously 5.4 * Abnormal FDG activity extends posterior right lateral from the urinary bladder within the expected with dictation of the vagina/cervix on sagittal imaging max SUV 8.4. CT images series 2 image 217 an d image 214 on fusion. OSSEOUS STRUCTURES: No suspicious radiotracer activity. OTHER CT: Right chest wall Kjycuj-t-Iwyh with distal tip terminating in the superior vena cava athero sclerosis of the arterial vasculature including the coronary arteries. Heart is mildly enlarged for s ize. Right renal cyst. Small hiatal hernia. IMPRESSION: 1. Positive response to therapy with decrease in metabolic activity and size of aortic bifurcation r etroperitoneal lymph node. 2. FDG activity extending posterior right lateral away from the bladder wall possibly within the vag usama/cervix area on the right. Soft tissue in this area measuring 21 x 12 mm is present. Findings are suspicious for malignancy. Consider direct visualization with pelvic exam with attention to the deep/ superior right aspect.
== END | disposition home or self-care (01) ==
LOC: RADPETMAIN 11:48
PROVIDERS: ATTEND Radiology Radiation Oncology
DX: J44.9 Chronic obstructive pulmonary disease, unspecified (principal); C77.9 Secondary and unspecified malignant neoplasm of lymph node, unspecified; Z92.3 Personal history of irradiation
CPT/HCPCS: 78815; A9552; J1642

== ENCOUNTER → 2022-11-06 | Outpatient (CLI) | payer MEDICARE ==
--- NOTE | 2022-11-07 13:53 | PE ---
EXAMINATION TYPE: PET CT fusion skull to thigh DATE OF EXAM: 11/06/2022 CLINICAL INDICATION:Female, 82 years old with history of C56.1; TECHNIQUE: Following the intravenous administration of 11.2 mCi of F-18 FDG, whole body images are performed from the skull base to the midthigh. Images are reviewed on the computer in the coronal, a xial, and sagittal planes. Reconstructed rotating images are created on independent workstation and reviewed on the computer. A non-contrast CT is performed in conjunction with the PET scan. Glucose level 101 mg/dL COMPARISON: CT 02/20/2022, PET/CT 07/12/2022, 03/09/2022, FINDINGS: Mediastinal SUV mean is 2.2. Hepatic parenchyma SUV mean is 3.2 SKULL BASE AND NECK: No suspicious radiotracer activity. Contamination in the anterior chest/left ne ck. CHEST, MEDIASTINUM, AND HILAR REGION: No suspicious radiotracer activity. ABDOMEN AND PELVIS: * Lymph node in the retroperitoneum of abnormal FDG activity on prior near the aortic bifurcation no w measures 3 mm, previously 6 mm, 11 mm and max SUV of 1.5, previously 1.5, 5.4. * Abnormal FDG activity extends posterior right lateral from the urinary bladder is no longer visual ized and could've represented artifact on prior. OSSEOUS STRUCTURES: No suspicious radiotracer activity. OTHER CT: Right chest wall [id number]-[id number] with distal tip terminating in the superior vena cava athero sclerosis of the arterial vasculature including the coronary arteries. Heart is mildly enlarged for s ize. Right renal cyst. Small hiatal hernia. IMPRESSION: 1. Positive response to therapy without evidence for suspicious FDG activity. 2. FDG activity extending posterior right lateral away from the bladder wall is no longer visualized and could have represented artifact.
== END | disposition home or self-care (01) ==
LOC: RADPETMAIN 09:25
PROVIDERS: ATTEND Radiology Radiation Oncology
DX: C56.1 Malignant neoplasm of right ovary (principal)
CPT/HCPCS: 78815; A9552

== ENCOUNTER → 2022-12-17 | Outpatient (CLI) | payer MEDICARE ==
--- NOTE | 2022-12-17 16:18 | CA ---
Transthoracic Echo Report Name: Maryuri Mahan Age: 82 Gender: F : 1940 Exam Date: 12/17/2022 08:39 Exam Location: [facility] Ht (in): 65 Wt (lb): 168 Ordering Physician: Veronique Denis MD Attending/Referring Phys: Hospital Insurance Clerk Osiris Quick RDCS Procedure CPT: Indications: Z01.818 Cardiac Hx: Technical Quality: Fair Contrast 1: Total Dose (mL): Contrast 2: Total Dose (mL): MEASUREMENTS (Male / Female) Normal Values 2D ECHO LV Diastolic Diameter PLAX 3.3 cm 4.2 - 5.9 / 3.9 - 5.3 cm LV Systolic Diameter PLAX 2.4 cm IVS Diastolic Thickness 1.3 cm 0.6 - 1.0 / 0.6 - 0.9 cm LVPW Diastolic Thickness 1.3 cm 0.6 - 1.0 / 0.6 - 0.9 cm LV Relative Wall Thickness 0.8 RV Internal Dim ED PLAX 2.3 cm LA Volume 42.0 cm??? 18 - 58 / 22 - 52 cm??? M-MODE Aortic Root Diameter MM 3.3 cm LA Systolic Diameter MM 4.0 cm LA Ao Ratio MM 1.2 DOPPLER AV Peak Velocity 100.0 cm/s AV Peak Gradient 4.0 mmHg AV Mean Velocity 72.8 cm/s AV Mean Gradient 2.3 mmHg AV Velocity Time Integral 18.8 cm LVOT Peak Velocity 89.6 cm/s LVOT Peak Gradient 3.2 mmHg LVOT Velocity Time Integral 18.4 cm MV Area PHT 2.6 cm??? Mitral E Point Velocity 59.2 cm/s Mitral A Point Velocity 100.2 cm/s Mitral E to A Ratio 0.6 MV Deceleration Time 289.7 ms MV E' Velocity 4.9 cm/s Mitral E to MV E' Ratio 12.1 TR Peak Velocity 240.2 cm/s TR Peak Gradient 23.1 mmHg Right Ventricular Systolic Press 28.0 mmHg FINDINGS Left Ventricle Mildly increased left ventricular wall thickness. Normal left ventricular wall motion. Normal left ventricular systolic function with no obvious regional wall motion abnormalities. Left ventricular ejection fraction is estimated at 55-60 %. Right Ventricle Normal right ventricular size and function. Right ventricular systolic pressure within normal limits. Right Atrium Normal right atrial size. Left Atrium Normal left atrial size. Mitral Valve Structurally normal mitral valve. Mild mitral regurgitation. Aortic Valve Trileaflet aortic valve. No aortic stenosis. Trace aortic regurgitation. Tricuspid Valve Structurally normal tricuspid valve. Mild tricuspid regurgitation. Pulmonic Valve Trace pulmonic regurgitation. Pericardium No pericardial effusion. Aorta Normal size aortic root and proximal ascending aorta. CONCLUSIONS Mild increased left ventricular wall thickness Left ventricular ejection fraction 55-60% RVSP 28 Mild mitral regurgitation Mild tricuspid regurgitation Previewed by: Dr. Chinedu Asif DO (Electronically Signed) Final Date: 17 December 2022 16:17
== END | disposition home or self-care (01) ==
LOC: RADECHMAIN 08:13
PROVIDERS: ATTEND Internal Medicine Hematology & Oncology
DX: Z01.818 Encounter for other preprocedural examination (principal); I08.1 Rheumatic disorders of both mitral and tricuspid valves; C56.9 Malignant neoplasm of unspecified ovary; D69.59 Other secondary thrombocytopenia; F41.9 Anxiety disorder, unspecified; E78.5 Hyperlipidemia, unspecified
CPT/HCPCS: 93306

== ENCOUNTER → 2022-12-23 | Outpatient (CLI) | payer MEDICARE ==
[2022-12-23 12:34] LABS: African American GFR (CKD) 72 (>60 ml/min/1.73 sqM); Blood Urea Nitrogen 12 mg/dL (7-17); Non-African American GFR(CKD) 63 (>60 ml/min/1.73 sqM)
--- NOTE | 2022-12-23 19:18 | CT ---
EXAMINATION TYPE: CT ChestAbdPelvis w con CT DLP: 1035.9 mGycm, Automated exposure control for dose reduction was used. DATE OF EXAM: 12/23/2022 1:39 PM COMPARISON: PET CT 11/06/2022, 07/10/2022, CT chest abdomen pelvis 02/20/2022 CLINICAL INDICATION:Female, 82 years old with history of C56.9; PHH, Follow up for ovarian cancer. Technique: Multiple axial images of the chest, abdomen, and pelvis were obtained following the intrav enous administration of 100 mL Isovue-300. Oral contrast was administered. Two-dimensional coronal an d sagittal reconstructions were obtained. Findings: CHEST: LUNGS/ PLEURA: No focal consolidation, pneumothorax or pleural effusion. Mild apical scarring of the lungs. AIRWAY: Patent and unremarkable. HEART: Size within normal limits. No pericardial effusion.Mild coronary artery atherosclerosis. MEDIASTINUM: No evidence of adenopathy. VASCULATURE: No aortic aneurysm. Right chest wall Fgyrfy-d-Igdm with distal tip terminating at the s uperior cavoatrial junction. MUSCULOSKELETAL: No acute osseous abnormalities. No aggressive osseous lesion. SOFT TISSUES/LYMPH NODES: Unremarkable. LOWER NECK: No significant findings. ABDOMEN: ABDOMEN LIVER: Diffusely hypoattenuating parenchyma consistent with steatosis. GALLBLADDER AND BILE DUCTS: Unremarkable. PANCREAS: Unremarkable. SPLEEN: Unremarkable. ADRENAL GLANDS: Unremarkable. KIDNEYS AND URETERS: No evidence of hydronephrosis or renal calculus. Right renal cyst redemonstrated . PELVIS BLADDER: Unremarkable REPRODUCTIVE: Uterus and ovaries are surgically absent. No evidence of recurrent soft tissue to sugge st recurrence. No lymphadenopathy identified. ABDOMEN & PELVIS STOMACH AND BOWEL: Enteric contrast reaches the ascending colon. No focal bowel wall thickening or lloyd rrounding inflammatory changes. No evidence of bowel obstruction. PERITONEUM: No evidence of pneumoperitoneum or free fluid. No evidence of omental caking. Surgical cl ips identified along the right mid abdomen laterally and near the right iliac vessels. VASCULATURE: Moderate atherosclerotic calcifications are present throughout the abdominal aorta and i ts branches. MUSCULOSKELETAL: No acute osseous abnormalities. No aggressive osseous lesion. Degenerative changes a t L5-S1 with disc space narrowing, endplate sclerosis, and vacuum disc disease. LYMPH NODES: No evidence for lymphadenopathy. SOFT TISSUE/ABDOMINAL WALL: Unremarkable IMPRESSION: No evidence for recurrence/metastatic disease within the chest, abdomen or pelvis.
== END | disposition home or self-care (01) ==
LOC: RADPROMAIN 11:13
PROVIDERS: ATTEND Internal Medicine Hematology & Oncology
DX: Z03.89 Encounter for observation for other suspected diseases and conditions ruled out (principal); C56.9 Malignant neoplasm of unspecified ovary
CPT/HCPCS: 82565; 84520; 71260; 74177; J1642; Q9967

== ENCOUNTER → 2023-01-05 | Outpatient (CLI) | payer MEDICARE | END | disposition home or self-care (01) | LOC: LABWHC1 08:21 | PROVIDERS: ATTEND Radiology Radiation Oncology | DX: C77.5 Secondary and unspecified malignant neoplasm of intrapelvic lymph nodes (principal); C56.1 Malignant neoplasm of right ovary; J44.9 Chronic obstructive pulmonary disease, unspecified; Z92.3 Personal history of irradiation | CPT/HCPCS: 36415; 86304 ==

== ENCOUNTER → 2023-01-22 | Outpatient (CLI) | payer MEDICARE ==
--- NOTE | 2023-01-25 07:48 | MM ---
Reason for Exam: Screening (asymptomatic). Last screening mammogram was performed 12 month(s) ago. Patient History: Menarche at age 13. First Full-Term at age 27. Left ovary removed at age 67. Right ovary removed at age 67. Hysterectomy at age 46. Postmenopausal. Ovarian cancer, age 67. Estrogen for 20 years from age 45 until age 65. 1969, Excisional Biopsy on the Left side. Maternal cousin had breast cancer. Paternal aunt had breast cancer, age 50. Maternal aunt had breast cancer, age 50. Risk Values: Beatriz 5 year model risk: 2.1%. NCI Lifetime model risk: 3.1%. Prior Study Comparison: 11/22/2019 Bilateral Screening Mammogram, [facility]. 01/02/2021 Bilateral Screening Mammogram, [facility]. 01/08/2022 Bilateral MG 3D screening mammo w/cad, [facility]. Tissue Density: The breast tissue is almost entirely fat. Findings: Analyzed By CAD. There is no suspicious group of microcalcifications or new suspicious mass in either breast. Overall Assessment: Negative, BI-RAD 1 Management: Screening Mammogram of both breasts in [address] [facility] will attempt to contact patient to return for supplemental views and ultrasound if indicated. Patient should continue monthly self-breast exams. A clinical breast exam by your physician is recommended on an annual basis. This exam should not preclude additional follow-up of suspicious palpable abnormalities. Note on Beatriz scores and lifetime risk: 1. A Beatriz score greater than 3% is considered moderate risk. If this is the case, consider specialist referral to assess eligibility for a risk reducing agent. 2. If overall lifetime risk for the development of breast cancer is 20% or higher, the patient may qualify for future screening with alternating mammogram and breast MRI. Electronically signed and approved by: Boris Segundo DO
== END | disposition home or self-care (01) ==
LOC: RADMAMWWP 08:15
PROVIDERS: ATTEND Internal Medicine
DX: Z12.31 Encounter for screening mammogram for malignant neoplasm of breast (principal); Z78.0 Asymptomatic menopausal state; Z80.3 Family history of malignant neoplasm of breast
CPT/HCPCS: 77063; 77067

== ENCOUNTER → 2023-03-12 | Outpatient (CLI) | payer MEDICARE ==
--- NOTE | 2023-03-14 11:24 | PE ---
EXAMINATION TYPE: PET CT fusion skull to thigh DATE OF EXAM: 03/12/2023 CLINICAL INDICATION:Female, 82 years old with history of R07.9 CHEST PAIN, UNSPECIFIED; TECHNIQUE: Following the intravenous administration of 13.7 mCi of F-18 FDG, whole body images are performed from the skull base to the midthigh. Images are reviewed on the computer in the coronal, a xial, and sagittal planes. Reconstructed rotating images are created on independent workstation and reviewed on the computer. A non-contrast CT is performed in conjunction with the PET scan. Glucose level 105 mg/dL CT DLP: 439.25 mGycm, Automated exposure control for dose reduction was used. COMPARISON: CT 12/15/2022, PET/CT 11/14/2022, FINDINGS: Mediastinal SUV mean is 2.1. Hepatic parenchyma SUV mean is 2.8. SKULL BASE AND NECK: No suspicious radiotracer activity. Contamination in the anterior chest/left ne ck. CHEST, MEDIASTINUM, AND HILAR REGION: No suspicious radiotracer activity. Radiotracer uptake at the Qepwui-l-Lyrm injection site. ABDOMEN AND PELVIS: * There may be mildly increased size of lymph nodes within the retroperitoneum with abnormal FDG act ivity just below the right renal vasculature measuring up to 7 mm Max SUV 6.2, previously 4.4 and murali suring 6 mm. * Right common iliac chain lymph nodes max SUV 3.4, previously 3.7. Measurements are difficult witho ut IV contrast additional lymph node also present measuring 6 mm in the right external iliac chain ma x SUV 3.8 previously 3.0. Inferior along the external iliac chain versus bowel max SUV 4.0 not really seen on the prior study. * * Abnormal FDG activity extends posterior right lateral from the urinary bladder is no longer visual ized and could've represented artifact on prior. OSSEOUS STRUCTURES: No suspicious radiotracer activity. Right upper neck posterior neck muscle strain max SUV 9.5. OTHER CT: Right chest wall Ihfyje-e-Tlfx with distal tip terminating in the superior vena cava athero sclerosis of the arterial vasculature including the coronary arteries. Heart is mildly enlarged for s ize. Right renal cyst. Small hiatal hernia. Moderate coronary artery dislocations. The heart is mildl y enlarged for size. Chest wall Hjykis-n-Ljyb with tip in appropriate position. IMPRESSION: Slight increase in metabolic activity within the retroperitoneal lymph nodes with fractionally increa se in size suggested. Additionally the right iliac chain lymph nodes have increased in metabolic acti vity. Findings suggest mild progression of disease.
== END | disposition home or self-care (01) ==
LOC: RADPETMAIN 08:18
PROVIDERS: ATTEND Internal Medicine Hematology & Oncology
DX: C56.1 Malignant neoplasm of right ovary (principal); R59.0 Localized enlarged lymph nodes
CPT/HCPCS: 78815; A9552

== ENCOUNTER → 2023-05-10 | Outpatient (CLI) | payer MEDICARE ==
--- NOTE | 2023-05-10 12:18 | MR ---
EXAMINATION TYPE: MR brain wo/w con DATE OF EXAM: 05/10/2023 COMPARISON: None HISTORY: Dizziness CONTRAST: Performed utilizing 7.5 mL intravenous Gadavist gadolinium contrast. TECHNIQUE: Multiplanar, multiecho imaging on a 3.0 Malaika magnet is performed through the brain. Stud y is performed within 24 hours of arrival to the hospital. The craniovertebral junction is normal. The pituitary is normal. Diffusion-weighted imaging is performed. No abnormal hyperintensity is present to suggest an acute i ntracranial infarct or acute ischemic change. There are multiple small scattered periventricular and subcortical white matter changes present bilat erally. Findings are nonspecific but can be compatible with chronic white matter ischemic changes. Di fferential diagnosis should include multiple sclerosis, some of these white matter changes are perpen dicular to the lateral ventricles. Vasculitis, Lyme disease could be considered within the differenti al. Ventricles and sulci are prominent for the patient age. Following contrast administration, no abnormal enhancement is evident. IMPRESSION: 1. Intact appearing periventricular white matter ischemic changes. Differential diagnosis should incl ude multiple sclerosis.
== END | disposition home or self-care (01) ==
LOC: RADMRIMAIN 07:33
PROVIDERS: ATTEND Internal Medicine Hematology & Oncology
DX: I67.82 Cerebral ischemia (principal); C56.9 Malignant neoplasm of unspecified ovary
CPT/HCPCS: 70553; A9585

== ENCOUNTER → 2023-07-30 | Outpatient (CLI) | payer MEDICARE ==
--- NOTE | 2023-07-30 12:38 | XR ---
EXAMINATION TYPE: XR shoulder limited RT DATE OF EXAM: 07/30/2023 COMPARISON: NONE HISTORY: 82-year-old female with right shoulder pain after fall. S49.91XA UNSP INJURY OF RIGHT SHOUL WESLEY AND UPPER A TECHNIQUE: 2 views FINDINGS: Mild capsular hypertrophy at the AC joint. Subacromial space is preserved. No acute fracture, subluxa tion, or dislocation is seen. Right anterior chest wall injection port partially visualized. IMPRESSION: Mild capsular hypertrophy at the AC joint could reflect mild degenerative change or a mild joint spra in. No acute osseous abnormality seen on these 2 views.
== END | disposition home or self-care (01) ==
LOC: RADXRMAIN 12:06
PROVIDERS: ATTEND Internal Medicine Hematology & Oncology
DX: S49.91XA Unspecified injury of right shoulder and upper arm, initial encounter (principal); M25.811 Other specified joint disorders, right shoulder; M19.011 Primary osteoarthritis, right shoulder

== ENCOUNTER → 2023-07-30 | Outpatient (CLI) | payer MEDICARE ==
[2023-07-30 21:02] LABS: HCT 33.5 % (37.2-46.3); HGB 10.9 g/dL (12.0-15.0); MCH 35.2 pg (27.0-32.0); MCHC 32.5 g/dL (32.0-37.0); MCV 108.1 FL (80.0-97.0); Mean Platelet Volume 10.9 FL (9.5-12.2); NRBC Per 100 WBC 0 X 10*3/uL (0.00-0.01); Platelet Count 150 X 10*3/uL (140-440); RDW 12.7 % (11.5-14.5); WBC 2.66 X 10*3/uL (4.50-10.00)
[2023-07-30 21:18] LABS: % Iron Saturation 30.07 (12.00-45.00); Iron 83 UG/DL (50-170); Total Iron Binding Capacity 276 UG/DL (228-460)
[2023-07-30 21:31] LABS: Basophils # (A) 0.02 X 10*3/uL (0.00-0.10); Basophils % (A) 0.8 %; Eosinophils # (A) 0.06 X 10*3/uL (0.04-0.35); Eosinophils % (A) 2.3 %; Lymphocytes # (A) 0.63 X 10*3/uL (0.90-5.00); Lymphocytes % (A) 23.7 %; Monocytes # (A) 0.38 X 10*3/uL (0.20-1.00); Monocytes % (A) 14.3 %; Neutrophils # (A) 1.56 X 10*3/uL (1.80-7.70); Neutrophils % (A) 58.5 %; RBC Morphology Normal (Normal)
== END | disposition home or self-care (01) ==
LOC: LABWHC1 11:32
PROVIDERS: ATTEND Family Medicine
DX: I95.1 Orthostatic hypotension (principal)
CPT/HCPCS: 36415; 82728; 83540; 83550; 84443; 84445; 85025

== ENCOUNTER → 2023-08-11 | Outpatient (CLI) | payer MEDICARE ==
--- NOTE | 2023-08-12 10:49 | CA ---
Transthoracic Echo Report Name: Maryuri Mahan Age: 82 Gender: F : 1940 Exam Date: 08/11/2023 12:33 Exam Location: [facility] Ht (in): 66 Wt (lb): 162 Ordering Physician: Kendrick Willard DO Attending/Referring Phys: Dayan Keen [facility] Pulp Drier Osiris Quick RDCS Procedure CPT: Indications: I95.1 ORTHOSTATIC HYPOTENSION Cardiac Hx: Technical Quality: Fair Contrast 1: Total Dose (mL): Contrast 2: Total Dose (mL): MEASUREMENTS (Male / Female) Normal Values 2D ECHO LV Diastolic Diameter PLAX 2.9 cm 4.2 - 5.9 / 3.9 - 5.3 cm LV Systolic Diameter PLAX 1.8 cm IVS Diastolic Thickness 1.3 cm 0.6 - 1.0 / 0.6 - 0.9 cm LVPW Diastolic Thickness 1.1 cm 0.6 - 1.0 / 0.6 - 0.9 cm LV Relative Wall Thickness 0.8 RV Internal Dim ED PLAX 2.9 cm M-MODE Aortic Root Diameter MM 3.3 cm LA Systolic Diameter MM 2.2 cm LA Ao Ratio MM 0.7 AV Cusp Separation MM 3.7 cm DOPPLER AV Peak Velocity 115.4 cm/s AV Peak Gradient 5.3 mmHg AV Mean Velocity 74.1 cm/s AV Mean Gradient 2.6 mmHg AV Velocity Time Integral 21.6 cm LVOT Peak Velocity 100.3 cm/s LVOT Peak Gradient 4.0 mmHg LVOT Velocity Time Integral 21.3 cm Mitral E Point Velocity 56.7 cm/s Mitral A Point Velocity 102.6 cm/s Mitral E to A Ratio 0.6 MV Deceleration Time 322.0 ms TR Peak Velocity 175.0 cm/s TR Peak Gradient 12.2 mmHg Right Ventricular Systolic Press 22.2 mmHg FINDINGS Left Ventricle Mildly increased left ventricular wall thickness. Left ventricular cavity size normal. Normal left ventricular systolic function with no obvious regional wall motion abnormalities. Left ventricular ejection fraction is estimated at 55-60 %. Right Ventricle Normal right ventricular size and function. Right ventricular systolic pressure within normal limits. Right Atrium Normal right atrial size. Left Atrium Normal left atrial size. Mitral Valve Structurally normal mitral valve. Mild mitral annular calcification. Trace mitral regurgitation. Aortic Valve Trileaflet aortic valve. No aortic valve stenosis or regurgitation. Tricuspid Valve Structurally normal tricuspid valve. Mild tricuspid regurgitation. Pulmonic Valve Structurally normal pulmonic valve. Pericardium No pericardial effusion. Aorta Normal size aortic root and proximal ascending aorta. CONCLUSIONS Mildly increased left ventricular wall thickness Left ventricular ejection fraction 55-60% RVSP 22 Trace mitral regurgitation Mild tricuspid regurgitation Previewed by: Dr. Chinedu Asif DO (Electronically Signed) Final Date: 12 August 2023 10:49
== END | disposition home or self-care (01) ==
LOC: RADECHMAIN 12:07
PROVIDERS: ATTEND Internal Medicine
DX: I34.0 Nonrheumatic mitral (valve) insufficiency (principal); I36.1 Nonrheumatic tricuspid (valve) insufficiency; I51.89 Other ill-defined heart diseases; I95.1 Orthostatic hypotension
CPT/HCPCS: 93306

== ENCOUNTER → 2023-08-17 | Outpatient (CLI) | payer MEDICARE ==
--- NOTE | 2023-08-17 22:19 | BD ---
EXAMINATION TYPE: Axial Bone Density DATE OF EXAM: 08/17/2023 CLINICAL HISTORY: 83 years old Female. ICD-10 CODE: N95.1 MENOPAUSAL AND FEMALE CLIMACTERIC STATES Height: 63.5 Weight: 184 FRAX RISK QUESTIONS: Secondary Osteoporosis: possibly 3. Menopause before 45: hyst at at 41 yrs old RISK FACTORS HISTORY OF: pt states no to these questions, not very sure of self though. pt has stage 4 ovarian ca, chemo and radiation MEDICATIONS: vit d3, statin for cholesterol, EXAM MEASUREMENTS: Bone mineral densitometry was performed using the OraMet[employer] System. Bone mineral density as measured about the Lumbar spine is: ----- L1-L4(G/cm2): 1.037 T Score Values are as follows: ----- L1: -1.2 ----- L2: -1.9 ----- L3: -1.2 ----- L4: -0.7 ----- L1-L4: -1.2 Z Score Values are as follows: ----- L1: 0.4 ----- L2: -0.3 ----- L3: 0.3 ----- L4: 0.9 ----- L1-L4: 0.4 Bone mineral density has: Decreased -1.5% since study of: 10.24.2018 Bone mineral density about the R hip (g/cm2): 0.877 Bone mineral density about the L hip (g/cm2): 0.891 T Score values are as follows: -----R Neck: -0.4 -----L Neck: -0.7 -----R Total: -1.0 -----L Total: -0.9 Z Score values are as follows: -----R Neck: 1.6 -----L Neck: 1.3 -----R Total: 0.8 -----L Total: 1.0 Bone mineral density has: Decreased -5.6% since study of: 10.24.2018 FRAX%s: The graph provided illustrates a 10.4% chance for a major osteoporotic fx and a 2.0% chance f or the hips probability for fx in 10 years time. IMPRESSION: Osteopenia (T Score between -2.5 and -1). There is slightly increased risk of fracture and the patient may be considered for treatment. Re-Screen 2-5 years. NOTE: T-SCORE=SD OF THE YOUNG ADULT MEAN.
== END | disposition home or self-care (01) ==
LOC: RADBDWWP 10:16
PROVIDERS: ATTEND Internal Medicine
DX: M85.89 Other specified disorders of bone density and structure, multiple sites (principal); N95.1 Menopausal and female climacteric states
CPT/HCPCS: 77080

== ENCOUNTER → 2023-10-22 | Outpatient (CLI) | payer MEDICARE ==
--- NOTE | 2023-10-25 08:34 | MM ---
Reason for Exam: Clinical finding. Last screening mammogram was performed 9 month(s) ago. Patient History: Menarche at age 13. First Full-Term at age 27. Left ovary removed at age 67. Right ovary removed at age 67. Hysterectomy at age 46. Postmenopausal. Ovarian cancer, age 67. Estrogen for 20 years from age 45 until age 65. 1969, Excisional Biopsy on the Left side. Maternal cousin had breast cancer. Paternal aunt had breast cancer, age 50. Maternal aunt had breast cancer, age 50. Risk Values: Beatriz 5 year model risk: 2.1%. NCI Lifetime model risk: 2.7%. Tissue Density: The breasts are almost entirely fatty. Findings: Analyzed By CAD. No evidence for mass or distortion. No suspicious microcalcifications. Benign vascular calcifications seen bilaterally. Manage clinically. Overall Assessment: Benign, BI-RAD 2 Management: Screening Mammogram of both breasts in 1 year. Results were given to the patient verbally at the time of exam. Patient should continue monthly self-breast exams. A clinical breast exam by your physician is recommended on an annual basis. This exam should not preclude additional follow-up of suspicious palpable abnormalities. Note on Beatriz scores and lifetime risk: 1. A Beatriz score greater than 3% is considered moderate risk. If this is the case, consider specialist referral to assess eligibility for a risk reducing agent. 2. If overall lifetime risk for the development of breast cancer is 20% or higher, the patient may qualify for future screening with alternating mammogram and breast MRI. Electronically signed and approved by: Manuel Christiansen M.D. Radiologis
== END | disposition home or self-care (01) ==
LOC: RADMAMWWP 13:37
PROVIDERS: ATTEND Internal Medicine
DX: C56.9 Malignant neoplasm of unspecified ovary (principal); N64.4 Mastodynia; Z78.0 Asymptomatic menopausal state; Z80.3 Family history of malignant neoplasm of breast
CPT/HCPCS: 77066; G0279; 77062

== ENCOUNTER → 2024-01-04 | Outpatient (CLI) | payer MEDICARE ==
--- NOTE | 2024-01-04 15:59 | US ---
EXAMINATION TYPE: US kidneys/renal and bladder DATE OF EXAM: 01/04/2024 COMPARISON: CT 12/23/2022 CLINICAL INDICATION: Female, 83 years old with history of N18.31 STAGE 3A CHRONIC KIDNEY DISEASE; CKD EXAM MEASUREMENTS: Right Kidney: 10.0 x 4.9 x 4.5 cm Left Kidney: 9.5 x 4.9 x 5.0 cm Right Kidney: *Anechoic area seen upper pole: 5.2 x 4.9 x 3.6 cm. Left Kidney: No hydronephrosis or masses seen Bladder: Appears anechoic Bilateral Jets seen: Yes IMPRESSION: 1. No evidence for obstructive uropathy. 2. Right renal simple appearing cyst.
== END | disposition home or self-care (01) ==
LOC: RADUSWWP 13:00
PROVIDERS: ATTEND Internal Medicine
DX: N28.1 Cyst of kidney, acquired (principal); N18.31 Chronic kidney disease, stage 3a
CPT/HCPCS: 76770

== ENCOUNTER → 2024-03-23 | Outpatient (CLI) | payer MEDICARE ==
--- NOTE | 2024-03-24 21:57 | PE ---
EXAMINATION TYPE: PET CT fusion skull to thigh DATE OF EXAM: 03/23/2024 CLINICAL INDICATION:Female, 83 years old with history of C56.3 OVARIAN CANCER; TECHNIQUE: Following the intravenous administration of 11.86 mCi of F-18 FDG, whole body images are performed from the skull base to the midthigh. Images are reviewed on the computer in the coronal, axial, and sagittal planes. Reconstructed rotating images are created on independent workstation and reviewed on the computer. A non-contrast CT is performed in conjunction with the PET scan. Glucose level 94 mg/dL CT DLP: 758 mGycm, Automated exposure control for dose reduction was used. COMPARISON: CT None, PET/CT 03/12/2023, MRI: None FINDINGS: Mediastinal SUV mean is 2.1. Hepatic parenchyma SUV mean is 4.0. SKULL BASE AND NECK: * Left neck lymph nodes with increased metabolic activity max SUV 8.1 measuring up to 7 mm. CHEST, MEDIASTINUM, AND HILAR REGION: * Left periaortic lymph node in the mediastinum max SUV 5.5 measuring 5 mm.r ABDOMEN AND PELVIS: * There may be mildly increased size of lymph nodes within the retroperitoneum with abnormal FDG act ivity just below the right renal vasculature measuring up to now measuring 4 mm Max SUV 8.7, previous ly 7 mm Max SUV 6.2, 4.4 and measuring 6 mm. * Right common iliac chain lymph nodes not well appreciated on today's exam. Previously Max SUV 3.4, previously 3.7. Measurements are difficult without IV contrast additional lymph node also present me asuring 6 mm in the right external iliac chain max SUV 3.8 previously 3.0. Inferior along the externa l iliac chain versus bowel max SUV 4.0 not really seen on the prior study. * * Abnormal FDG activity extends posterior right lateral from the urinary bladder is now again visual ized possibly connected to the vagina max SUV 15.6. OSSEOUS STRUCTURES: No suspicious radiotracer activity. Right upper neck posterior neck muscle strain max SUV 9.5. OTHER CT: Right chest wall Eacpwt-k-Ibig with distal tip terminating in the superior vena cava athero sclerosis of the arterial vasculature including the coronary arteries. Heart is mildly enlarged for s ize. Right renal cyst. Small hiatal hernia. Moderate coronary artery dislocations. The heart is mildl y enlarged for size. Chest wall Rfarxi-p-Odut with tip in appropriate position. IMPRESSION: Findings suspicious for progression of disease with recurrent focus of uptake thought to be possibly connected to the vagina, new left lower neck lymph nodes in the thoracic inlet, new left periaortic m ediastinal lymph node and increasing FDG activity of the lymph node near the right renal vasculature in the retroperitoneum. [facility], , 03/24/2024 9:55 PM
== END | disposition home or self-care (01) ==
LOC: RADPETMAIN 14:24
PROVIDERS: ATTEND Internal Medicine Hematology & Oncology
DX: C56.3 Malignant neoplasm of bilateral ovaries (principal)
CPT/HCPCS: 78815

== ENCOUNTER 2024-05-19 08:47 | Emergency (ER) | payer MEDICARE ==
--- NOTE | 2024-05-19 09:00 | ED ---
General Adult HPI - General Source: patient, family, RN notes reviewed Mode of arrival: wheelchair Limitations: no limitations <Marsha Wolfe - Last Filed: 05/19/24 08:58> - General Source: patient, family, RN notes reviewed Limitations: no limitations <Julio Cesar Victor - Last Filed: 05/19/24 13:01> - General Chief complaint: Recheck/Abnormal Lab/Rx Stated complaint: cough,chest congestion Time Seen by Provider: 05/19/24 08:55 - History of Present Illness Initial comments: Quick Note: This is a 83-year-old female who presents to the emergency department for concerns of problems related to COVID. Patient states that on 05/16 she started developing coughing and congestion and she tested positive for COVID the following day, on 05/17. Since then she continues to have worsening symptoms including shortness of breath and difficulty swallowing. She had an outpatient x-ray earlier today and states that her doctor told her that if symptoms did not get better she needs to go to the emergency department for possible admission. (Marsha Wolfe) Patient is an 83-year-old female present to the emergency department not feeling well. Patient was diagnosed with COVID-19 infection 3 days ago. Onset of symptoms was 4 days ago. Patient was started on Paxlovid. Patient does have history of underlying stage IV ovarian cancer which has reoccurred and is currently on chemotherapy for this. Patient does have nausea and decreased appetite. Patient does feel short of breath. Patient has some congestion and sore throat. (Julio Cesar Victor) - Related Data Home Medications Medication Instructions Recorded Confirmed Atorvastatin [Lipitor] 10 mg PO HS 08/25/17 05/19/24 Cyanocobalamin [Vitamin B-12] 500 mcg PO DAILY 09/07/21 05/19/24 FLUoxetine HCL [PROzac] 20 mg PO BID 09/07/21 05/19/24 Albuterol Sulfate [Ventolin HFA] 2 puff INHALATION RT-QID PRN 05/19/24 05/19/24 Cholecalciferol [Vitamin D3 (125 125 mcg PO DAILY 05/19/24 05/19/24 Mcg = 5000 Iu)] Gabapentin [Neurontin] 100 mg PO HS 05/19/24 05/19/24 Lactulose 10 gm PO Q8H PRN 05/19/24 05/19/24 Nirmatrelvir/Ritonavir [Paxlovid 2 tab PO BID 05/19/24 05/19/24 150-100 mg Dose Pack] Thiamine [Vitamin B-1] 100 mg PO DAILY 05/19/24 05/19/24 Timolol 0.5% Ophth Soln [Timoptic 1 drop BOTH EYES BID 05/19/24 05/19/24 0.5% Ophth Soln] Vitamin K (Unknown Strength) 1 dose PO DAILY 05/19/24 05/19/24 Previous Rx's Medication Instructions Recorded Albuterol Inhaler [Ventolin Hfa 2 puff INHALATION Q4HR PRN #1 each 05/19/24 Inhaler] dexAMETHasone [Decadron] 4 mg PO DAILY #5 tablet 05/19/24 Allergies Allergy/AdvReac Type Severity Reaction Status Date / Time carboplatin AdvReac Severe HEART Verified 05/19/24 10:35 PROBLEMS, BLACKED OUT. codeine AdvReac Severe SEVERE Verified 05/19/24 10:35 HEADACHE Sulfa (Sulfonamide AdvReac Severe SEVERE Verified 05/19/24 10:35 Antibiotics) HEADACHE lorazepam [From Ativan] AdvReac Unknown VERY Verified 05/19/24 10:35 DROWSY - SLEPT 12 HOURS prochlorperazine AdvReac Unknown CONFUSED- Verified 05/19/24 10:35 [From Compazine] FELT DRUGGED UP. Review of Systems ROS Other: All systems not noted in ROS Statement are negative. <Marsha Wolfe - Last Filed: 05/19/24 08:58> ROS Other: All systems not noted in ROS Statement are negative. Constitutional: Denies: fever Eyes: Denies: eye pain ENT: Reports: throat pain, congestion Respiratory: Reports: cough, dyspnea Cardiovascular: Denies: chest pain Endocrine: Reports: fatigue Gastrointestinal: Reports: nausea Musculoskeletal: Denies: back pain <Julio Cesar Victor - Last Filed: 05/19/24 13:01> ROS Statement: Those systems with pertinent positive or pertinent negative responses have been documented in the HPI. Past Medical History Past Medical History: Cancer, COPD, CVA/TIA, Hyperlipidemia, Osteoarthritis (OA) Additional Past Medical History / Comment(s): 2008 OVARIAN CANCER WITH SURGERY X2 AND CHEMO (LAST CHEMO 07/2015), TIA x 2, HX OF MIGRAINES, DIVERTICULOSIS migraines in past, UTI., STATES SORE LEFT LOWER EYE LID AND SURGERY SCHEDULED FOR 09/02/17., PT STATES UNSURE OF COPD., ITCHY SKIN, STATES VERY SENSITIVE TO MEDICATIONS AND ANESTHESIA. History of Any Multi-Drug Resistant Organisms: None Reported Past Surgical History: Appendectomy, Bladder Surgery, Hysterectomy Additional Past Surgical History / Comment(s): 2007 cancerous ovarian mass removed, 01/2015 pelvic surgery for more cancer removal, colonoscopy, bladder suspension, hemorrhoidectomy, nose repair, ovarian cystectomy. Past Anesthesia/Blood Transfusion Reactions: Previous Problems w/ Anesthesia, Postoperative Nausea & Vomiting (PONV) Additional Past Anesthesia/Blood Transfusion Reaction / Comment(s): STATES DIFFICULTY WAKING UP- RECEIVED NARCAN , RECORDS REQUESTED FROM [facility] . (02/2015) Smoking Status: Former smoker - Past Family History Father Family Medical History: Cancer Additional Family Medical History / Comment(s): Father had lymphoma. Mother Family Medical History: Cancer Additional Family Medical History / Comment(s): Mother had skin cancer on her nose. <Marsha Wolfe - Last Filed: 05/19/24 08:58> General Exam <Marsha Wolfe - Last Filed: 05/19/24 08:58> Limitations: no limitations General appearance: alert, in no apparent distress Head exam: Present: normocephalic Eye exam: Present: normal appearance ENT exam: Present: normal oropharynx Neck exam: Present: normal inspection. Absent: tenderness, meningismus Respiratory exam: Present: normal lung sounds bilaterally Cardiovascular Exam: Present: regular rate, normal rhythm GI/Abdominal exam: Present: soft. Absent: tenderness Extremities exam: Present: normal inspection. Absent: pedal edema, calf tenderness Neurological exam: Present: alert Psychiatric exam: Present: normal affect, normal mood Skin exam: Present: normal color <Julio Cesar Victor - Last Filed: 05/19/24 13:01> - General Exam Comments Initial Comments: Visual Physical Exam Vital signs reviewed General: Well-appearing, nontoxic, no acute distress. Head: Normocephalic, atraumatic Eyes: PERRLA, EOMI ENT: Airway patent Chest: Nonlabored breathing Skin: No visual rash, normal skin tone Neuro: Alert and oriented 3 Musculoskeletal: No gross abnormalities (Marsha Wolfe) Course Vital Signs 05/19/24 05/19/24 09:01 09:59 Temperature 97.7 F Pulse Rate 58 L Respiratory 20 22 Rate Blood Pressure 116/51 O2 Sat by Pulse 96 Oximetry EKG Findings - EKG Results: EKG: interpreted by ERMD, sinus rhythm, normal axis, normal QRS, normal ST/T EKG shows: bradycardia <Julio Cesar Victor - Last Filed: 05/19/24 13:01> Medical Decision Making <Marsha Wolfe - Last Filed: 05/19/24 08:58> - Lab Data Result diagrams: 05/19/24 09:59 05/19/24 09:59 <Julio Cesar Victor - Last Filed: 05/19/24 13:01> - Medical Decision Making I performed the QuickNote portion of this chart. Signed Marsha Wolfe PA-C. (Marsha Wolfe) Was pt. sent in by a medical professional or institution (SHERON Powell, PROFESSOR OF RELIGIOUS STUDIES, urgent care, hospital, or custodial...) When possible be specific @ -No Did you speak to anyone other than the patient for history (EMS, parent, family, police, friend...)? What history was obtained from this source @ -Family is present helps provide additional history of patient's oncological history Did you review nursing and triage notes (agree or disagree)? Why? @ -I reviewed and agree with nursing and triage notes Were old charts reviewed (outside hosp., previous admission, EMS record, old EKG, old radiological studies, urgent care reports/EKG's, custodial records)? Report findings @ -Previous labs reviewed including renal function without significant change Differential Diagnosis (chest pain, altered mental status, abdominal pain women, abdominal pain men, vaginal bleeding, weakness, fever, dyspnea, syncope, headache, dizziness, GI bleed, back pain, seizure, CVA, palpatations, mental health, musculoskeletal)? @ -Differential Weakness: Hypoglycemia, shock, sepsis, hyponatremia, anemia, infection, MT, ETOH, adverse medicine reaction, overdose, stroke, this is not meant to be an all-inclusive list. EKG interpreted by me (3pts min.). @ -As above X-rays interpreted by me (1pt min.). @ -Chest x-ray from prior to ER visit unremarkable CT interpreted by me (1pt min.). @ -None done U/S interpreted by me (1pt. min.). @ -None done What testing was considered but not performed or refused? (CT, X-rays, U/S, labs)? Why? @ -Considered viral testing however patient already tested positive for COVID- 19 infection What meds were considered but not given or refused? Why? @ -None Did you discuss the management of the patient with other professionals (professionals i.e. DrLeah, PA, PROFESSOR OF RELIGIOUS STUDIES, lab, RT, psych nurse, social sciences chair, offal trimmer, teacher, consumer loan officer, shoe caser)? Give summary @ -No Was smoking cessation discussed for >3mins.? @ -No Was critical care preformed (if so, how long)? @ -No Were there social determinants of health that impacted care today? How? (Homelessness, low income, unemployed, alcoholism, drug addiction, transportation, low edu. Level, literacy, decrease access to med. care, group home, rehab)? @ -No Was there de-escalation of care discussed even if they declined (Discuss DNR or withdrawal of care, Hospice)? DNR status @ -No What co-morbidities impacted this encounter? (DM, HTN, Smoking, COPD, CAD, Cancer, CVA, ARF, Chemo, Hep., AIDS, mental health diagnosis, sleep apnea, morbid obesity)? @ -Metastatic cancer with chemotherapy Was patient admitted / discharged? Hospital course, mention meds given and route, prescriptions, significant lab abnormalities, going to OR and other pertinent info. @ -Patient presents with generalized weakness and decreased oral intake secondary to COVID-19 infection. Patient may have minimal dehydration otherwise evaluation unremarkable. Patient reevaluated after fluids and inhaler and does feel better and comfortable with discharge home. Patient will be discharged with close follow-up and return if worse. Patient updated and in agreement. Undiagnosed new problem with uncertain prognosis? @ -No Drug Therapy requiring intensive monitoring for toxicity (Heparin, Nitro, Insulin, Cardizem)? @ -No Were any procedures done? @ -No Diagnosis/symptom? @ -COVID-19 Acute, or Chronic, or Acute on Chronic? @ -Acute Uncomplicated (without systemic symptoms) or Complicated (systemic symptoms)? @ -Default Side effects of treatment? @ -No Exacerbation, Progression, or Severe Exacerbation? @ -No Poses a threat to life or bodily function? How? (Chest pain, USA, MT, pneumonia, PE, COPD, DKA, ARF, appy, cholecystitis, CVA, Diverticulitis, Homicidal, Suicidal, threat to staff... and all critical care pts) @ -No (Julio Cesar Victor) - Lab Data Lab Results 05/19/24 05/19/24 05/19/24 Range/Units 09:59 09:59 09:59 WBC 3.1 L (3.8-10.6) k/uL RBC 3.10 L (3.80-5.40) m/uL Hgb 10.2 L (11.4-16.0) gm/dL Hct 30.5 L (34.0-46.0) % MCV 98.3 (80.0-100.0) fL MCH 32.9 (25.0-35.0) pg MCHC 33.5 (31.0-37.0) g/dL RDW 15.3 (11.5-15.5) % Plt Count 124 L (150-450) k/uL MPV 8.6 Neutrophils % (Manual) 60 % Band Neuts % (Manual) 1 % Lymphocytes % (Manual) 22 % Monocytes % (Manual) 11 % Eosinophils % (Manual) 6 % Neutrophils # (Manual) 1.80 (1.3-7.7) k/uL Lymphocytes # (Manual) 0.68 L (1.0-4.8) k/uL Monocytes # (Manual) 0.34 (0-1.0) k/uL Eosinophils # (Manual) 0.19 (0-0.7) k/uL Nucleated RBCs 0 (0-0) /100 WBC Manual Slide Review Performed Macrocytosis Slight PT 10.6 (10.0-12.5) sec INR 1.0 (<1.2) APTT 62.8 H (22.0-30.0) sec Sodium 137 (137-145) mmol/L Potassium 4.5 (3.5-5.1) mmol/L Chloride 107 (98-107) mmol/L Carbon Dioxide 22 (22-30) mmol/L Anion Gap 8 mmol/L BUN 20 H (7-17) mg/dL Creatinine 1.27 H (0.52-1.04) mg/dL Est GFR (CKD-EPI)AfAm 46 (>60 ml/min/1.73 sqM) Est GFR (CKD-EPI)NonAf 40 (>60 ml/min/1.73 sqM) Glucose 94 (74-99) mg/dL Plasma Lactic Acid Theo (0.7-2.0) mmol/L Calcium 9.5 (8.4-10.2) mg/dL Total Bilirubin 0.8 (0.2-1.3) mg/dL AST 51 H (14-36) U/L ALT 54 H (4-34) U/L Alkaline Phosphatase 121 (38-126) U/L Total Protein 6.5 (6.3-8.2) g/dL Albumin 3.8 (3.5-5.0) g/dL 05/19/24 Range/Units 09:59 WBC (3.8-10.6) k/uL RBC (3.80-5.40) m/uL Hgb (11.4-16.0) gm/dL Hct (34.0-46.0) % MCV (80.0-100.0) fL MCH (25.0-35.0) pg MCHC (31.0-37.0) g/dL RDW (11.5-15.5) % Plt Count (150-450) k/uL MPV Neutrophils % (Manual) % Band Neuts % (Manual) % Lymphocytes % (Manual) % Monocytes % (Manual) % Eosinophils % (Manual) % Neutrophils # (Manual) (1.3-7.7) k/uL Lymphocytes # (Manual) (1.0-4.8) k/uL Monocytes # (Manual) (0-1.0) k/uL Eosinophils # (Manual) (0-0.7) k/uL Nucleated RBCs (0-0) /100 WBC Manual Slide Review Macrocytosis PT (10.0-12.5) sec INR (<1.2) APTT (22.0-30.0) sec Sodium (137-145) mmol/L Potassium (3.5-5.1) mmol/L Chloride (98-107) mmol/L Carbon Dioxide (22-30) mmol/L Anion Gap mmol/L BUN (7-17) mg/dL Creatinine (0.52-1.04) mg/dL Est GFR (CKD-EPI)AfAm (>60 ml/min/1.73 sqM) Est GFR (CKD-EPI)NonAf (>60 ml/min/1.73 sqM) Glucose (74-99) mg/dL Plasma Lactic Acid Theo 1.0 (0.7-2.0) mmol/L Calcium (8.4-10.2) mg/dL Total Bilirubin (0.2-1.3) mg/dL AST (14-36) U/L ALT (4-34) U/L Alkaline Phosphatase (38-126) U/L Total Protein (6.3-8.2) g/dL Albumin (3.5-5.0) g/dL Disposition <Marsha Wolfe - Last Filed: 05/19/24 08:58> Is patient prescribed a controlled substance at d/c from ED?: No Time of Disposition: 13:00 <Julio Cesar Victor - Last Filed: 05/19/24 13:01> Clinical Impression: COVID-19 Disposition: HOME SELF-CARE Condition: Stable Instructions (If sedation given, give patient instructions): COVID-19 (Coronavirus Disease 2019) (ED) Additional Instructions: Prescription for steroid and inhaler sent to pharmacy. Please do follow-up with your primary care physician and oncologist beginning of the week. Return for fevers, difficulty breathing, decreased oral intake, worsening or changing symptoms or any other concerns. Prescriptions: dexAMETHasone [Decadron] 4 mg PO DAILY #5 tablet Albuterol Inhaler [Ventolin Hfa Inhaler] 2 puff INHALATION Q4HR PRN #1 each PRN Reason: Dyspnea Referrals: Kendrick Willard DO [Primary Care Provider] - 1-2 days
[2024-05-19 09:04] VITALS: TEMP 97.7
[2024-05-19] MEDS: ONDANSETRON 4 MG/2 ML VIAL IVP STA (10:13)
[2024-05-19] MEDS: FAMOTIDINE 20 MG/2 ML VIAL IV STA (10:21)
[2024-05-19 10:35] LABS: HCT 30.5 % (34.0-46.0); HGB 10.2 gm/dL (11.4-16.0); MCH 32.9 pg (25.0-35.0); MCHC 33.5 g/dL (31.0-37.0); MCV 98.3 fL (80.0-100.0); Macrocytosis Slight; Mean Platelet Volume 8.6; Platelet Count 124 k/uL (150-450); RDW 15.3 % (11.5-15.5); WBC 3.1 k/uL (3.8-10.6)
[2024-05-19 10:41] LABS: Prothrombin Time 10.6 sec (10.0-12.5)
[2024-05-19 10:43] LABS: Partial Thromboplastin Time 62.8 sec (22.0-30.0)
[2024-05-19 10:54] LABS: Band Neutrophils % 1 %; Eosinophils # (M) 0.19 k/uL (0-0.7); Lymphocytes # (M) 0.68 k/uL (1.0-4.8); Monocytes # (M) 0.34 k/uL (0-1.0); Neutrophils % (M) 60 %; Nucleated Red Blood Cells 0 /100 WBC (0-0); Total Cells Counted 100
[2024-05-19] MEDS: SODIUM CHLORIDE 0.9% 1,000 ML IV STA (10:57)
[2024-05-19] MEDS: ALBUTEROL HFA INHALER INHALATION STA (11:17)
[2024-05-19 11:36] LABS: ALT 54 U/L (4-34); AST 51 U/L (14-36); African American GFR (CKD) 46 (>60 ml/min/1.73 sqM); Albumin 3.8 g/dL (3.5-5.0); Alkaline Phosphatase 121 U/L (38-126); Anion Gap 8 mmol/L; Blood Urea Nitrogen 20 mg/dL (7-17); Calcium 9.5 mg/dL (8.4-10.2); Carbon Dioxide 22 mmol/L (22-30); Chloride 107 mmol/L (98-107); Glucose 94 mg/dL (74-99); Non-African American GFR(CKD) 40 (>60 ml/min/1.73 sqM); Potassium 4.5 mmol/L (3.5-5.1); Sodium 137 mmol/L (137-145); Total Bilirubin 0.8 mg/dL (0.2-1.3); Total Protein 6.5 g/dL (6.3-8.2)
[2024-05-19 14:37] VITALS: BP 118/84; PULSE 87; RESP 20
== END 2024-05-19 14:37 | disposition home or self-care (01) ==
LOC: EC 08:47
DX: U07.1 COVID-19 (principal); Z85.43 Personal history of malignant neoplasm of ovary; Z87.891 Personal history of nicotine dependence; Z86.73 Personal history of transient ischemic attack (TIA), and cerebral infarction without residual deficits; Z88.8 Allergy status to other drugs, medicaments and biological substances; Z88.5 Allergy status to narcotic agent; Z88.2 Allergy status to sulfonamides
CPT/HCPCS: 96360; 36415; 94640; 93005; 80053; 83605; 85025; 85610; 85730; 99284; J1642; 96361; 96374; 99285

== ENCOUNTER → 2024-05-19 | Outpatient (CLI) | payer MEDICARE ==
--- NOTE | 2024-05-19 08:38 | XR ---
EXAMINATION TYPE: XR chest 2V DATE OF EXAM: 05/19/2024 CLINICAL HISTORY: U07.1 COVID-19 TECHNIQUE: Single frontal view of the chest is obtained. COMPARISON: 09/03/2022 FINDINGS: Hyperinflation compatible with COPD. There is no focal air space opacity, pleural effusion , or pneumothorax seen. The cardiac silhouette size is within normal limits. The osseous structure s are intact. IMPRESSION: No acute process. [facility], , 05/19/2024 8:36 AM
== END | disposition home or self-care (01) ==
LOC: RADXRMAIN 07:51
PROVIDERS: ATTEND Internal Medicine
DX: U07.1 COVID-19 (principal); J44.9 Chronic obstructive pulmonary disease, unspecified
CPT/HCPCS: 71046

== ENCOUNTER → 2024-06-15 | Outpatient (CLI) | payer MEDICARE ==
--- NOTE | 2024-06-15 19:53 | PE ---
EXAMINATION TYPE: PET CT fusion skull to thigh DATE OF EXAM: 06/15/2024 CLINICAL INDICATION:Female, 83 years old with history of C56.3 OVARIAN CANCER; TECHNIQUE: Following the intravenous administration of 10.58 mCi of F-18 FDG, whole body images are performed from the skull base to the midthigh. Images are reviewed on the computer in the coronal, axial, and sagittal planes. Reconstructed rotating images are created on independent workstation and reviewed on the computer. A non-contrast CT is performed in conjunction with the PET scan. Glucose level 102 mg/dL CT DLP: 733.79 mGycm, Automated exposure control for dose reduction was used. COMPARISON: CT 12/23/2022, PET/CT 03/23/2024, 03/12/2023, 11/06/2022, 07/10/2022, 03/06/2022, MRI: 3 FINDINGS: Mediastinal SUV mean is 2.5. Hepatic parenchyma SUV mean is 3.2. SKULL BASE AND NECK: * Decreased size of left supraclavicular lymph node now measuring 1 cm with a maximum SUV of 1.8, pr eviously measured 1.4 cm with a maximum SUV of 8.1. This is below background activity. * No new sites of suspicious FDG uptake. CHEST, MEDIASTINUM, AND HILAR REGION: * Previously seen left para-aortic mediastinal lymph node is no longer visualized with no suspicious FDG uptake. * No new sites of suspicious FDG uptake. ABDOMEN AND PELVIS: * Previously seen enlarged retroperitoneal lymph nodes are no longer appreciated with no suspicious FDG activity. * Postsurgical changes from hysterectomy redemonstrated. Previously seen focal FDG activity within t he right lateral aspect of the vaginal cuff has decreased now measuring a maximum of 5.7, previously 15.6. * No new suspicious focal FDG activity. OSSEOUS STRUCTURES: No suspicious radiotracer activity. OTHER CT: Bilateral aphakia. Bilateral palatine tonsilliths. Right chest wall [id number] with dist al tip terminating in the superior vena cava. Bovine aortic arch. Atherosclerosis of the arterial vas culature including the coronary arteries. Heart is mildly enlarged for size. Right renal cyst. Focal radiotracer uptake is identified within the Mediport within the right chest and within the IV tubing along the anterior abdominal wall. IMPRESSION: Positive response to therapy with decreased size and radiotracer uptake within a left supraclavicular lymph node, decreased radiotracer uptake within the right vaginal cuff from prior PET/CT, and resolu tion of retroperitoneal and mediastinal FDG avid lymph nodes. [facility], , 06/15/2024 7:51 PM
== END | disposition home or self-care (01) ==
LOC: RADPETMAIN 13:14
PROVIDERS: ATTEND Internal Medicine Hematology & Oncology
DX: C56.3 Malignant neoplasm of bilateral ovaries (principal)
CPT/HCPCS: 78815; A9552

== ENCOUNTER → 2024-11-15 | Outpatient (CLI) | payer MEDICARE ==
[~2024-11-15] MED LIST changes: -REGADENOSON 0.4 MG/5 ML SYRINGE IV ONE; +SODIUM CHLORIDE 0.9% 250 ML in EMPTY BAG 1 BAG IV PRN; +SODIUM CHLORIDE 0.9% 500 ML 500 ML in EMPTY BAG 1 BAG IV PRN
--- NOTE | 2024-11-15 11:11 | MM ---
Reason for Exam: Screening (asymptomatic). Last mammogram was performed 1 year(s) and 1 month(s) ago. Patient History: Menarche at age 13. First Full-Term at age 27. Left ovary removed at age 67. Right ovary removed at age 67. Hysterectomy at age 46. Postmenopausal. Ovarian cancer, age 67. Estrogen for 20 years from age 45 until age 65. 1969, Excisional Biopsy on the Left side. Maternal cousin had breast cancer. Paternal aunt had breast cancer, age 50. Maternal aunt had breast cancer, age 50. Risk Values: Beatrzi 5 year model risk: 2.0%. NCI Lifetime model risk: 2.4%. Prior Study Comparison: 01/08/2022 Bilateral MG 3D screening mammo w/cad, [facility]. 01/22/2023 Bilateral MG 3D screening mammo w/cad, [facility]. 10/22/2023 Bilateral MG 3D diag mammo w/cad [facility], [facility]. Tissue Density: There are scattered areas of fibroglandular density. Findings: Analyzed By CAD. Right breast: Stable right upper outer quadrant probable intramammary lymph node. There is no suspicious group of microcalcifications or new suspicious mass. Left breast: There is no suspicious group of microcalcifications or new suspicious mass. Overall Assessment: Benign, BI-RAD 2 Management: Screening Mammogram of both breasts in [address] [facility] will attempt to contact patient to return for supplemental views and ultrasound if indicated. Patient should continue monthly self-breast exams. A clinical breast exam by your physician is recommended on an annual basis. This exam should not preclude additional follow-up of suspicious palpable abnormalities. Note on Beatriz scores and lifetime risk: 1. A Beatriz score greater than 3% is considered moderate risk. If this is the case, consider specialist referral to assess eligibility for a risk reducing agent. 2. If overall lifetime risk for the development of breast cancer is 20% or higher, the patient may qualify for future screening with alternating mammogram and breast MRI. [facility], , 11/15/2024 11:07 AM. Electronically signed and approved by: Boris Segundo DO
== END | disposition home or self-care (01) ==
LOC: RADMAMWWP 10:30
PROVIDERS: ATTEND Internal Medicine
DX: Z12.31 Encounter for screening mammogram for malignant neoplasm of breast (principal); R92.323 Mammographic fibroglandular density, bilateral breasts; Z78.0 Asymptomatic menopausal state; Z80.3 Family history of malignant neoplasm of breast
CPT/HCPCS: 77063; 77067

== ENCOUNTER → 2025-01-16 | Outpatient (CLI) | payer MEDICARE ==
--- NOTE | 2025-01-16 16:49 | MR ---
EXAMINATION TYPE: MR pelvis wo/w con DATE OF EXAM: 01/16/2025 COMPARISON: Multiple PET CT with most recent 11/16/2024, multiple CT chest abdomen pelvis with most re cent 12/23/2022 CLINICAL INDICATION:Female, 84 years old with history of C77.8,C77.5,C77.9,C56.1; [facility], TECHNIQUE: Triplane multisequence imaging was performed of the pelvis. Then the patient was given c ontrast/gadolinium, 7 cc of Gadobutrol and multiple post contrast sequences where obtained. FINDINGS: Reproductive: Postsurgical changes from hysterectomy with bilateral oophorectomy. There is a well-circumscribed les ion within the right vaginal cuff measuring 2.2 x 1.6 x 2.7 cm (series 901, image 18 and series 801, image 20). Demonstrates T1 hyperintensity and T2 isointensity. Demonstrates peripheral enhancement. T his corresponds to a focus of FDG activity on prior PET CTs. Initially discovered on PET CT 07/10/2022 . No discrete invasion into the surrounding structures. Bladder: Underdistended but grossly unremarkable.. Bowel: No evidence of bowel obstruction. Sigmoid diverticulosis without evidence for acute diverticul itis.. Peritoneum: No free fluid. No evidence of adenopathy. Vasculature: Unremarkable. Abdominal wall/soft tissues: Susceptibility artifact within the anterior pelvic subcutaneous tissues from prior surgery.. Musculoskeletal: Bone marrow signal is within normal signal intensity. Degenerative disc disease at t he visualized L5-S1 disc. Other: Right renal upper pole thinwall 4.3 cm cyst. No follow-up recommended. IMPRESSION: Postsurgical changes from hysterectomy with bilateral oophorectomy. There is redemonstration of perip herally enhancing soft tissue lesion within the right vaginal cuff which demonstrated FDG activity on prior PET/CT. This is highly concerning for recurrent malignancy. [facility], , 01/16/2025 4:47 PM
== END | disposition home or self-care (01) ==
LOC: RADMRIMAIN 10:24
PROVIDERS: ATTEND Radiology Radiation Oncology
DX: C77.8 Secondary and unspecified malignant neoplasm of lymph nodes of multiple regions (principal); C77.5 Secondary and unspecified malignant neoplasm of intrapelvic lymph nodes; C77.9 Secondary and unspecified malignant neoplasm of lymph node, unspecified; C56.1 Malignant neoplasm of right ovary; J44.9 Chronic obstructive pulmonary disease, unspecified; Z92.3 Personal history of irradiation; Z90.722 Acquired absence of ovaries, bilateral; Z90.710 Acquired absence of both cervix and uterus
CPT/HCPCS: 72197; J1642; A9585